=== PATIENT | female | born 1950 | race Caucasian/White ===

== ENCOUNTER 2018-12-03 13:51 | Outpatient (CLI) | payer MEDICARE, BC, SELFPAY ==
--- NOTE | 2018-12-03 14:41 | DI.RAD_ITS ---
SYMPTOMS/DIAGNOSIS: BILATERAL KNEE PAIN, ? DJD LEFT KNEE: The bony structures and joint spaces are intact. There is no evidence of a joint effusion, fracture or dislocation. SUMMARY: No abnormality is demonstrated. RIGHT KNEE: No bony or joint abnormality is seen. There is no evidence of a joint effusion, fracture or dislocation.
== END 2018-12-03 14:11 ==
PROVIDERS: PCP Family Medicine; Referring Provider Family Medicine; Visit Provider Orthopaedic Surgery
DX: M25.561 Pain in right knee (principal); M25.562 Pain in left knee
CPT/HCPCS: 73562; 99211; 99213

== ENCOUNTER 2019-02-03 00:56 | Outpatient (CLI) | payer MEDICARE, BC, SELFPAY ==
--- NOTE | 2019-02-03 11:30 | DI.MAMMO_ITS ---
SYMPTOMS/DIAGNOSIS: SCREENING, Z12.31 MAMMOGRAMS: Mammograms were interpreted according to the usual protocol including computer analysis with CAD system, tomosynthesis and C view imaging. The breast tissue is of moderate radiodensity. There is no dominant mass. There are no suspicious calcifications and there has been no significant interval change when compared with prior images. No evidence of malignancy, category 1, yearly screening mammography is recommended. Breast density category B. SUMMARY: Category 1, yearly screening mammography is recommended. Breast density category B. MQSA ASSESSMENT OF FINDINGS: Negative. Category 1. Patient will receive a letter notifying them of these results. BI-RADS category B. There are scattered areas of fibroglandular density.
== END 2019-02-03 01:16 ==
PROVIDERS: PCP Family Medicine; Visit Provider Nurse Practitioner Family
DX: Z12.31 Encounter for screening mammogram for malignant neoplasm of breast (principal)
CPT/HCPCS: 77063; 77067

== ENCOUNTER 2019-07-01 00:55 | Outpatient (CLI) | payer MEDICARE, BC, SELFPAY ==
--- NOTE | 2019-07-01 14:30 | DI.DEXA_ITS ---
EXAM: XR DEXA BONE DENSITY W/WO FRANCOISE CLINICAL HISTORY: OSTEOPENIA M85.80, MENOPAUSAL Z78.0 TECHNIQUE: DEXA scan was performed according to the usual protocol. COMPARISON: PREVIOUS EXAMINATION OF JUNE 2015 FINDINGS: Findings for lumbar spine scanning are a T-score of -2.3, previous examination of June 2015 showed lumbar T-score of -2.0. Left hip scanning shows T-score of -2.3 with left femoral neck T-score of - 2.5, previous examination of 2014 showed left hip T-score of -1.6. Left forearm scanning shows T-score of -3.5, previous examination of 2014 showed forearm T-score of - 2.6. Lateral vertebral scanogram shows no evidence of a vertebral compression fracture. IMPRESSION: Findings consistent with osteoporosis according to the WHO criteria.
== END 2019-07-01 01:15 ==
PROVIDERS: PCP Family Medicine; Visit Provider Family Medicine
DX: M81.0 Age-related osteoporosis without current pathological fracture (principal); M85.88 Other specified disorders of bone density and structure, other site; Z78.0 Asymptomatic menopausal state
CPT/HCPCS: 77080

== ENCOUNTER 2019-07-14 22:00 | Outpatient (REF) | payer MEDICARE, BC, SELFPAY ==
[2019-07-14 19:58] LABS: ALT 25 U/L (14-59); AST 18 U/L (15-37); Albumin 3.7 g/dL (3.4-5.0); Alkaline Phosphatase 93 U/L (46-116); Anion Gap 8.4 mmol/L (3-11); BUN 17 mg/dL (7-18); Bilirubin, Total 0.2 mg/dL (0.2-1.0); CO2 28.6 mmol/L (21.0-32.0); CREATININE 1.01 mg/dL (0.55-1.02); Calcium 9.2 mg/dL (8.5-10.1); Chloride 105 mmol/L (98-107); Estimated GFR 54.35 (mL/min/1.73m2); Glucose 94 mg/dL (70-100); PHOSPHORUS 4.3 mg/dL (2.6-4.7); Potassium 4.1 mmol/L (3.5-5.1); Sodium 142 mmol/L (136-145); TSH (W/Ref FT4) 1.55 uIU/mL (0.36-3.74); Total Protein 6.7 g/dL (6.4-8.2)
[2019-07-15 05:22] LABS: Vitamin D 25 Total 57.9 ng/ml (30-100)
== END 2019-07-14 22:20 ==
LOC: NCHCN 22:00
PROVIDERS: PCP Family Medicine; Visit Provider Family Medicine
DX: E78.5 Hyperlipidemia, unspecified (principal); M81.0 Age-related osteoporosis without current pathological fracture
CPT/HCPCS: 80053; 82306; 84100; 84443

== ENCOUNTER 2019-10-26 10:17 | Emergency (ER) | payer MEDICARE, BC, SELFPAY ==
[2019-10-26 10:22] VITALS: BP 139/75; PULSE 73; RESP 18; TEMP 36.8; O2SAT 96
--- NOTE | 2019-10-26 10:30 | DI.CT_ITS ---
EXAM: CT HEAD WO CLINICAL HISTORY: fall/injury/VELÁZQUEZ COMPARISON: HEAD FACIALS WO from 03/12/2014 FINDINGS: There is a small amount of subarachnoid blood in the left frontal lobe. There is no midline shift or mass effect. The ventricles and sulci are consistent with the patient's age. The calvarium is inta ct. There is near complete opacification of the maxillary sinuses bilaterally. The remaining visual ized paranasal sinuses are clear as are the mastoid air cells. IMPRESSION: 1. Small amount of subarachnoid hemorrhage in the left frontal lobe. 2. No acute fracture. 3. The findings were discussed with the emergency department on the date of the examination.
--- NOTE | 2019-10-26 10:38 | W.ED.GENAD ---
Discharge Plan Disposition Patient Disposition: [facility] Condition: Serious Discharge Details Chief Complaint: HeadInjury Clinical Impression: Subarachnoid hemorrhage, Laceration of scalp Primary Care Provider: Addie Franks ED Provider: Chivo Moreno Home Meds and New Rx's Prescriptions: No Action rosuvastatin 20 mg tablet 20 mg PO DAILY RF: 0 aspirin [Adult Aspirin Regimen] 81 mg tablet,delayed release (DR/EC) 81 mg PO DAILY RF: 0 sumatriptan succinate [Imitrex] 100 MG tablet 100 mg PO PRN RF: 0 sertraline 50 MG tablet 50 mg PO DAILY RF: 0 cholecalciferol (vitamin D3) 1,000 UNITS tablet 2,000 units PO DAILY RF: 0 Proactive Cream 1 ea Topical BID RF: 0 Medical Decision Making 69-year-old female who presents after a mechanical slip and fall striking the back of her head. Able to confirm that her tetanus status is up-to-date. Patient appears well, nontoxic. She is neurologically intact. She is not anticoagulated. Given her age, presentation, will obtain CT of the head without contrast. We will need to repair the laceration. No palpable skull fracture. No C-spine tenderness whatsoever, collar not initially placed. Patient remains neurologically intact here in the ER. CT results showing a subarachnoid hemorrhage. Findings were discussed with patient. She was placed into a c-collar, hard, IV established, labs obtained, and a call was placed to [facility] trauma team for transfer as we do not have neurosurgery here at our facility. I spoke with the trauma team, Dr. Barrios who felt as though transfer to her facility, ER to ER was reasonable. She recommended that we initiate 1 g IV Keppra. All appropriate paperwork signed for transfer Medical Records Medical records reviewed: Yes I reviewed the patient's medical records. Imaging Data Radiologic Study: Imaging: CT Scan My impression: Head without contrast read by radiology as a left frontal subarachnoid hemorrhage without mass-effect HPI General Mode of arrival: ambulatory. Date/Time Provider Initiated Documentation: 10/26/19 10:18. Limitations to Documentation: no limitations. Information obtained by: patient and family. HPI Narrative: 69-year-old female presents to the ER via private car after having a slip and fall on ice injury. Roughly 15 minutes ago she fell backward striking the back of her head she does report a mild global headache but denies any other injury or LOC. She denies any visual changes, neck pain, nausea, vomiting, numbness, tingling, weakness, incontinence. She believes that she is up-to-date on her tetanus status. Her only complaint right now is that of a laceration to her scalp. Patient does take a baby aspirin daily but is otherwise not anticoagulated. She has a history of migraine headaches, hearing loss, former smoker, tubular adenoma of the colon, benign neoplasm of the breast. Related Data Home Medications Medication Instructions Recorded Confirmed cholecalciferol (vitamin D3) 2,000 units PO DAILY 03/12/14 10/26/19 sertraline 50 mg PO DAILY 03/12/14 10/26/19 sumatriptan succinate [Imitrex] 100 mg PO PRN 03/12/14 10/26/19 Proactive Cream 1 ea TOPICAL BID 07/03/17 10/26/19 aspirin 81 mg tablet,delayed 81 mg PO DAILY 01/25/19 10/26/19 release rosuvastatin 20 mg tablet 20 mg PO DAILY 01/25/19 10/26/19 Allergies Allergy/AdvReac Type Severity Reaction Status Date / Time isotretinoin [From Accutane] Allergy Intermediate Hives Verified 10/26/19 10:27 latex Allergy Intermediate Skin Rash Verified 10/26/19 10:27 Tetracyclines Allergy Intermediate Hives Verified 10/26/19 10:27 minocycline Allergy Verified 10/26/19 10:27 General Stated Complaint: HeadInjury SADA: 3 Review of Systems Constitutional Constitutional: Denies chills, Denies fatigue, Denies fever(s), Reports headache(s) and Denies weakness Eyes Eyes: Denies blurry vision, Denies change in vision and Denies loss of vision ENT Ears, Nose, Mouth, and Throat: Reports dizziness, Reports headache(s), Denies nasal congestion and Denies sore throat Cardiovascular Cardiovascular: Denies chest pain, Denies rapid heart rate, Denies edema, Denies irregular heart rhythm, Denies lightheadedness, Denies palpitations and Denies dyspnea Respiratory Respiratory: Denies cough, Denies dyspnea and Denies wheezing Gastrointestinal Gastrointestinal: Denies abdominal pain, Denies nausea and Denies vomiting Musculoskeletal Musculoskeletal: Denies abnormal gait, Denies back pain, Denies myalgias, Denies numbness and Denies tingling Integumentary/Breasts Skin/Breast: Denies rash Neurologic Neurologic: Denies abnormal gait, Reports dizziness, Reports headache(s), Denies loss of vision, Denies numbness, Denies tingling, Denies paresthesias and Denies weakness Endocrine Endocrine: Denies fatigue and Denies palpitations Hematologic/Lymphatic Hematologic/Lymphatic: Denies easy bleeding and Denies easy bruising Allergic/Immunologic Allergic/Immunologic: Denies wheezing PFSH Medical History 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 Chivo Nuñez, repeat 5 yrs Trigger Finger release 09/2013 Family History Mother Personal history of malignant neoplasm BREAST Father Essential hypertension Personal history of malignant neoplasm LUNG/MELANOMA Heart disease Hyperlipidemia Sister No problems noted. Grandfather Personal history of malignant neoplasm STOMACH Grandfather Personal history of malignant neoplasm Grandmother No problems noted. Grandmother Personal history of malignant neoplasm Social History Smoking/Tobacco Use Status: Current every day Tobacco Type: cigarettes Alcohol Intake: never Drug use: Never Substance use type: does not use Do you feel safe at home: Yes Do you feel safe in your relationship?: Yes Female Reproductive History Menstrual Menopause type: natural History History 2 Para 2 Hx # Term Pregnancies Multiple births Hx # Pregnancies Ectopic pregnancies AB induced Hx Number of Living Children AB spontaneous Exam Const General: cooperative, healthy appearing, comfortable and no acute distress Orientation: alert, awake and oriented x3 HENMT Head: normal to inspection, no palpable skull fracture, normocephalic and laceration (Right occiput with a 1.5 cm well approximated lac. No crepitus or bleeding) Ears: external ears normal, TM's normal bilaterally, EAC's normal and other (No hemotympanum bilaterally) General nose exam: external nose normal Mouth: moist mucous membranes Eyes General: appearance normal, both eyes and all related structures Eyelids: eyelids normal Conjunctivae: conjunctivae normal Sclera: sclerae normal Cornea: corneas normal Pupils: PERRL EOM: EOM intact bilaterally Direct ophthalmoscopy: normal light reflex Neck Neck: normal visual inspection, full ROM, no lymphadenopathy, no meningeal signs, trachea midline and supple Resp Effort & Inspection: normal respiratory effort and able to speak in complete sentences Auscultation: clear to auscultation bilaterally Cardio Rate: regular rate Rhythm: regular rhythm GI Inspection: normal to inspection Palpation: soft and nontender Back/Spine/Pelvis Back: No back tenderness Cervical Spine: cervical ROM normal, No collar present, No cervical muscular tenderness, No pain with cervical ROM, No cervical spasm, No cervical spinal tenderness and No step off deformity Thoracic/Lumbar Spine: thoracic and lumbar spine normal to inspection Pelvis: no pain with anterior-posterior compression Skin General skin exam: no rashes or lesions noted Neuro General: alert, awake, oriented x3, gait normal, moves all extremities and no focal motor deficits Cranial Nerves: CN's II-XI intact bilaterally Cognition: normal cognition Speech: speech normal Gait: normal gait Motor: muscle tone normal throughout, strength 5/5 throughout, no pronator drift, no movement abnormalities noted and no fasciculations Sensory Exam: no sensory deficits noted Extrem General: normal to inspection, full ROM, normal capillary refill, no pedal edema and normal gait Psych Appearance: grossly normal Mental Status: mental status grossly normal Speech and Movement: speech and movement normal Affect: normal affect Attitude: cooperative Course Vital Signs Vital signs: Vital Signs Temperature 36.8 C 10/26/19 10:22 Pulse 73 10/26/19 10:22 Respiratory Rate 18 10/26/19 10:22 Blood Pressure 139/75 10/26/19 10:22 Pulse Oximetry 96 10/26/19 10:22 Temperature 36.8 C 10/26/19 10:22 Temperature Source Skin 10/26/19 10:22 Pulse 73 10/26/19 10:22 Respiratory Rate 18 10/26/19 10:22 Respiratory Effort Non-Labored 10/26/19 10:26 Blood Pressure 139/75 10/26/19 10:22 Blood Pressure Position Sitting 10/26/19 10:22 Pulse Oximetry 96 10/26/19 10:22 Oxygen Delivery Method Room Air 10/26/19 10:22 Oxygen Flow Rate 0 10/26/19 10:22 Pain Level 3 10/26/19 10:22 Procedures Laceration Laceration 1: Site: scalp (Right occiput) Side (If applicable): right Size (cm): 1.5 Description: linear Depth: simple, single layer Pre-repair: wound explored and irrigated extensively Size (cm): other ([place]) Number of sutures: 2
[2019-10-26 12:09] LABS: Abs Immature Grans 0.02 k/cumm (0.0-0.09); Absolute Basophil Count 0.04 k/cumm (0.0-0.2); Absolute Eosinophil Count 0.08 k/cumm (0.0-0.7); Absolute Lymphocyte Count 1.63 k/cumm (1.2-3.4); Absolute Monocyte Count 0.56 k/cumm (0.11-0.7); Absolute Neutrophil Count 3.82 k/cumm (1.2-6.7); Basophils % 0.7; Eosinophils % 1.3; Immature Grans % 0.3 %; Lymphocytes % 26.5; Mean Corp. HGB Concentration 34.1 g/dL (32.0-36.0); Mean Corpuscular Hemoglobin 30.6 pg (27.0-33.0); Mean Corpuscular Volume 89.8 fL (80-95); Mean Platelet Volume 8.1 fL (8.0-11.0); Monocytes % 9.1; Neutrophils % 62.1; Platelet Count 272 x1000/uL (130-400); RBC Distribution Width 12.5 % (11.7-14.6); White Blood Cell Count 6.15 k/cumm (4.4-10.8)
[2019-10-26 12:18] LABS: Prothrombin Time 10.4 sec (9.3-11.0)
[2019-10-26] MEDS: levETIRAcetam 1,000 MG in Normal Saline 100 ML 400 MG IVPB (12:19)
[2019-10-26 12:26] LABS: ALT 23 U/L (14-59); AST 20 U/L (15-37); Albumin 3.6 g/dL (3.4-5.0); Alkaline Phosphatase 96 U/L (46-116); Anion Gap 8.4 mmol/L (3-11); BUN 17 mg/dL (7-18); Bilirubin, Total 0.3 mg/dL (0.2-1.0); CO2 27.6 mmol/L (21.0-32.0); CREATININE 0.73 mg/dL (0.55-1.02); Chloride 104 mmol/L (98-107); Glucose 91 mg/dL (74-106); Potassium 4.3 mmol/L (3.5-5.1); Sodium 140 mmol/L (136-145); Total Protein 7.1 g/dL (6.4-8.2)
[2019-10-26 12:53] VITALS: BP 139/75; PULSE 73; RESP 18; TEMP 36.8; O2SAT 96
== END 2019-10-26 12:55 | disposition short-term general hospital (02) ==
PROVIDERS: Emergency Provider Physician Assistant; PCP Family Medicine
DX: S06.6X0A Traumatic subarachnoid hemorrhage without loss of consciousness, initial encounter (principal); S01.01XA Laceration without foreign body of scalp, initial encounter; W00.0XXA Fall on same level due to ice and snow, initial encounter
CPT/HCPCS: 12011; 80053; 96374; 99285; 70450; 85025; 85610; J1953; L0172

== ENCOUNTER 2020-02-28 00:45 | Outpatient (CLI) | payer MEDICARE, BC, SELFPAY ==
--- NOTE | 2020-02-28 11:30 | DI.MAMMO_ITS ---
EXAM: MG MAMMO SCREENING CLINICAL HISTORY: screening TECHNIQUE: Bilateral full field digital CC and MLO mammographic images were obtained with 3D tomosyn thesis and utilizing computer aided detection (CAD). COMPARISON: Available for comparison. FINDINGS: Masses/Architectural Distortion: None seen. Microcalcifications: No suspicious pleomorphic-type are seen. There is again seen a biopsy clip in th e upper-outer quadrant of the right breast. Skin Thickening/Nipple Retraction: None. IMPRESSION: 1. No significant interval change with no specific features of malignancy noted. 2. Unless there is more urgent need, screening mammography is recommended, as per [employer] guidelines. BI-RADS Category 1 - Negative Breast Density - Category B - Scattered areas of fibroglandular density A negative radiographic report should not delay biopsy if a dominant or clinically suspicious mass is present. Up to ten percent of cancers are not identified on mammography. A negative report may reinforce clinical impression. Adenosis and dense breasts may obscure an underlying neoplasm. False positive reports average 6 to 10%. Patient will receive a letter notifying them of these results.
== END 2020-02-28 01:05 ==
PROVIDERS: PCP Family Medicine; Visit Provider Nurse Practitioner Family
DX: Z12.31 Encounter for screening mammogram for malignant neoplasm of breast (principal)
CPT/HCPCS: 77063; 77067

== ENCOUNTER 2020-04-04 12:12 | Outpatient (REF) | payer MEDICARE, BC, SELFPAY ==
[2020-04-04 18:31] LABS: PTT Activated 27.2 sec (21.0-31.4); Prothrombin Time 10.1 sec (9.3-11.0)
[2020-04-04 18:34] LABS: HCT 44.2 % (36.0-46.0); HGB 14.9 g/dL (11.2-15.7); MCH 30.2 pg (27.0-33.0); MCHC 33.7 % (32.0-36.0); MCV 89.7 fL (80-95); MPV 8.7 fL (8.0-11.0); Platelet Count 234 10^3/uL (130-400); RBC 4.93 10^6/uL (3.93-5.22); RDW 12.3 % (11.7-14.6); RDW-SD 40.4 fL; WBC 5.94 10^3/uL (4.4-10.8)
[2020-04-04 18:50] LABS: ALT 30 U/L (14-59); AST 26 U/L (15-37); Albumin 3.7 g/dL (3.4-5.0); Alkaline Phosphatase 97 U/L (46-116); Anion Gap 8.2 mmol/L (3-11); BUN 21 mg/dL (7-18); Bilirubin, Total 0.3 mg/dL (0.2-1.0); CO2 26.8 mmol/L (21.0-32.0); CREATININE 0.79 mg/dL (0.55-1.02); Calcium 9.1 mg/dL (8.5-10.1); Chloride 103 mmol/L (98-107); Glucose 82 mg/dL (74-106); Potassium 4.4 mmol/L (3.5-5.1); Sodium 138 mmol/L (136-145); Total Protein 6.7 g/dL (6.4-8.2)
== END 2020-04-04 12:32 ==
LOC: NCHCN 12:12
PROVIDERS: PCP Family Medicine; Visit Provider Nurse Practitioner Family
DX: K92.1 Melena (principal)
CPT/HCPCS: 80053; 85027; 85610; 85730

== ENCOUNTER 2020-04-06 10:03 | Outpatient (CLI) | payer MEDICARE, BC, SELFPAY ==
--- NOTE | 2020-04-06 | DI.RAD_ITS ---
EXAM: XR CHEST 2V PA LATERAL CLINICAL HISTORY: ENLARGED LYMPH NODES, R59.9 TECHNIQUE: 2D digital imaging was performed. COMPARISON: No exams were available for comparison FINDINGS: MEDIASTINUM: Normal. HEART: Normal. PULMONARY VASCULATURE: Normal. LUNGS: Clear. PLEURAL SPACE: No pleural effusion or pneumothorax. BONE:Normal. IMPRESSION: No acute pulmonary findings. DATA REPOSITORY: RADIATION DOSE DELIVERED:
== END 2020-04-06 10:23 ==
PROVIDERS: PCP Family Medicine; Visit Provider Family Medicine
DX: R59.9 Enlarged lymph nodes, unspecified (principal)
CPT/HCPCS: 71046

== ENCOUNTER 2020-04-06 14:08 | Outpatient (REF) | payer MEDICARE, BC, SELFPAY ==
[2020-04-06 18:35] LABS: Abs Immature Grans 0.01 10^3/uL (0.0-0.06); Absolute Basophil Count 0.04 10^3/uL (0.0-0.2); Absolute Eosinophil Count 0.03 10^3/uL (0.0-0.7); Absolute Lymphocyte Count 2.13 10^3/uL (1.2-3.4); Absolute Monocyte Count 0.47 10^3/uL (0.1-0.8); Absolute Neutrophil Count 2.81 10^3/uL (1.2-6.7); Basophils % 0.7; Eosinophils % 0.5; HCT 45.5 % (36.0-46.0); Immature Grans % 0.2; Lymphocytes % 38.8; MCH 29.8 pg (27.0-33.0); MCV 90.5 fL (80-95); MPV 8.7 fL (8.0-11.0); Monocytes % 8.6; Neutrophils % 51.2; Platelet Count 239 10^3/uL (130-400); RBC 5.03 10^6/uL (3.93-5.22); RDW 12.1 % (11.7-14.6); RDW-SD 40.3 fL; WBC 5.49 10^3/uL (4.4-10.8)
[2020-04-06 18:54] LABS: Calculated LDL 53 mg/dL (<100); Cholesterol 131 mg/dL (<200); HDL Cholesterol 68 mg/dL (40-60); Triglyceride 50 mg/dL (<150)
[2020-04-06 19:15] LABS: Vitamin D 25 Total 56.6 ng/ml (30-100)
== END 2020-04-06 14:28 ==
LOC: NCHCN 14:08
PROVIDERS: PCP Family Medicine; Visit Provider Family Medicine
DX: E78.5 Hyperlipidemia, unspecified (principal); R59.9 Enlarged lymph nodes, unspecified; K92.1 Melena; M85.80 Other specified disorders of bone density and structure, unspecified site
CPT/HCPCS: 80061; 82306; 85025

== ENCOUNTER 2020-06-23 04:47 | Outpatient (CLI) | payer MEDICARE, BC, SELFPAY ==
--- NOTE | 2020-06-23 15:05 | DI.CTLCSR_ITS ---
EXAM: CT CHEST LUNG CANCER SCREEN CLINICAL HISTORY: SCREENING FOR LUNG CA,F17.210,SMOKER TECHNIQUE: Imaging Protocol: Axial computed tomography images with coronal and sagittal reformatted images were created and reviewed COMPARISON: CT CHEST WITH CONTRAST from 06/26/2015 FINDINGS: Tracheobronchial tree: Patent where visualized. Mediastinum and Malika: No dominant adenopathy or fluid collection. Pulmonary parenchyma: Mild centrilobular emphysematous changes are present. Scarring or atelectasis is seen in the lung bases. No focal consolidating infiltrates. Lung Nodules: None. Pleura: No effusion or pneumothorax. Heart: The heart is not dilated. Moderate coronary artery calcification. No significant pericardial effusion. Aorta: Thoracic aorta non-dilated.Atherosclerosis. Upper abdomen: Unremarkable. Bones: Degenerative changes are seen in the spine. Soft Tissues: Unremarkable. IMPRESSION: No pulmonary nodules. Lung RADS Cat 1 - Negative: No nodules and definitely benign nodules Lung-RADS 1.0 CATEGORIES: Category 0 - Prior chest CT exam(s) being located for comparison. Category 1 - Annual screening in 12 months. No nodules or definitely benign nodules. Category 2 - Annual screening in 12 months. Benign appearance. Nodules with low likelihood of becomin g active cancer. Category 3 - 6-month follow-up. Probably benign. Short-term follow-up suggested. Nodules with low lik elihood of becoming active cancer. Category 4A - 3-month follow-up and CT/PET if >8 mm in size. Suspicious finding. Findings which requi re additional testing. Category 4B - Findings which require additional testing and tissue sampling. Suspicious finding. C Added to Any of the Above - History of prior lung cancer screening. S Added to Any of the Above - Significant unexpected other finding. RADIATION DOSE DELIVERED: 86.34mGy.cm Total DLP DATA REPOSITORY: All CT scans at this facility are submitted to the National Radiology Data Registry (NRDR) Dose Index Registry (DIR) with the [employer] (ACR). RADIATION OPTIMIZATION: All CT scans at this facility use at least one of these dose optimization te chniques: automated exposure control; mA and/or kV adjustment per patient size (includes targeted exa ms where dose is matched to clinical indication); or iterative reconstruction.
== END 2020-06-23 05:07 ==
PROVIDERS: PCP Family Medicine; Visit Provider Family Medicine
DX: F17.210 Nicotine dependence, cigarettes, uncomplicated (principal)
CPT/HCPCS: G0297

== ENCOUNTER 2020-07-13 00:46 | Outpatient (CLI) | payer MEDICARE, BC, SELFPAY ==
--- NOTE | 2020-07-13 | DI.RAD_ITS ---
EXAM: XR SHOULDER RT COMPLETE 2+V CLINICAL HISTORY: RT SHOULDER JOINT PAIN,M25.511. TECHNIQUE: 2D digital imaging was performed. COMPARISON: No exams were available for comparison FINDINGS: BONES: No acute fracture is present. No bony destructive lesion is seen. JOINTS: No dislocation present. Mild degenerative changes of the AC joint. SOFT TISSUE: Normal. IMPRESSION: Mild degenerative changes of the right AC joint. No acute fracture or dislocation. DATA REPOSITORY: RADIATION DOSE DELIVERED:
== END 2020-07-13 01:06 ==
PROVIDERS: PCP Family Medicine; Visit Provider Family Medicine
DX: M19.011 Primary osteoarthritis, right shoulder (principal)
CPT/HCPCS: 73030

== ENCOUNTER → 2020-08-09 10:26 | Outpatient (BNVA) | payer MEDICARE, BC, SELFPAY | PROVIDERS: PCP Family Medicine; Referring Provider Family Medicine; Visit Provider Student in an Organized Health Care Education/Training Program | DX: M75.51 Bursitis of right shoulder (principal); M75.41 Impingement syndrome of right shoulder; M75.21 Bicipital tendinitis, right shoulder | CPT/HCPCS: 20610; 99214; J1030 ==

== ENCOUNTER 2021-06-25 01:46 | Outpatient (CLI) | payer MEDICARE, BC, SELFPAY ==
--- NOTE | 2021-06-25 | DI.CTLCSR_ITS ---
Exam(s) CT CHEST LUNG CANCER SCREEN EXAM: CT CHEST LUNG CANCER SCREEN CLINICAL HISTORY: SCREENING FOR LUNG CA, CURRENT SMOKER, F17.210. TECHNIQUE: Imaging Protocol: Low Dose Technique CONTRAST MATERIAL: None COMPARISON: CT CT CHEST LUNG CANCER SCREEN from 06/23/2020 FINDINGS: CHEST: LUNGS: There is some pleural based infiltrate in the posterior basal segment and lateral basal segmen ts of the right lower lobe. This has slightly increased from the prior study of 1 year ago. In the opposite-left lung there is some atelectasis or scarring in the posterior basal segment which was not evident previously. Previously present left lung lingular findings have decreased. There are no pl eural effusions. There is density in the distal trachea proximal mainstem bronchi which is most probably mucus. MEDIASTINUM: There is no obvious hilar nor mediastinal adenopathy. CARDIAC: Heart size is normal. There is no pericardial effusion.Coronary artery calcification noted- moderate. OTHER: Caliber thoracic aorta is upper normal. OSSEOUS: No significant osseous lesions.. IMPRESSION: 1. Slight increase in the right lower lobe pleural based infiltrate when compared to June 2020. N evertheless, this still has a somewhat benign appearance... No pleural effusions no obvious intratho racic adenopathy 2. Recommend repeat scan in 6 months 3. Lung RADS Cat 3 - Probably Benign: Probably benign finding(s) - short term follow-up suggested; in clude nodules with a low likelihood of becoming a clinically active cancer. Lung-RADS 1.0 CATEGORIES: Category 0 - Prior chest CT exam(s) being located for comparison. Category 1 - Annual screening in 12 months. No nodules or definitely benign nodules. Category 2 - Annual screening in 12 months. Benign appearance. Nodules with low likelihood of becomin g active cancer. Category 3 - 6-month follow-up. Probably benign. Short-term follow-up suggested. Nodules with low lik elihood of becoming active cancer. Category 4A - 3-month follow-up and CT/PET if >8 mm in size. Suspicious finding. Findings which requi re additional testing. Category 4B - Findings which require additional testing and tissue sampling. Modifier S- Potentially clinically significant findings (non lung cancer) RADIATION DOSE DELIVERED: 79.22mGy.cm Total DLP 1.84mGy CTDIvol DATA REPOSITORY: All CT scans at this facility are submitted to the National Radiology Data Registry (NRDR) Dose Index Registry (DIR) with the [employer] (ACR). RADIATION OPTIMIZATION: All CT scans at this facility use at least one of these dose optimization te chniques: automated exposure control; mA and/or kV adjustment per patient size (includes targeted exa ms where dose is matched to clinical indication); or iterative reconstruction.
== END 2021-06-25 02:06 ==
PROVIDERS: PCP Family Medicine; Visit Provider Family Medicine
DX: F17.210 Nicotine dependence, cigarettes, uncomplicated (principal); Z12.2 Encounter for screening for malignant neoplasm of respiratory organs; R91.8 Other nonspecific abnormal finding of lung field
CPT/HCPCS: 71271

== ENCOUNTER 2021-07-11 00:40 | Outpatient (CLI) | payer MEDICARE, SELFPAY ==
--- NOTE | 2021-07-11 16:30 | DI.DEXA_ITS ---
Exam(s) XR DEXA BONE DENSITY W/WO FRANCOISE EXAM: XR DEXA BONE DENSITY W/WO FRANCOISE CLINICAL HISTORY: AGE RELATED OSTEOPOROSIS M81.0 TECHNIQUE: Routine DEXA evaluation of the lumbar spine, hip, or forearm. COMPARISON: CR XR DEXA BONE DENSITY W/WO FRANCOISE from 07/01/2019 FINDINGS: Performed on a HolotenKsolar unit. Lateral image: No compression fracture evident. Lumbar Spine total T-score: -2.5. Prior 2019 reading was -2.3 Hip total T-score:-2.5. Prior 2019 reading was -2.3 Independent reading at the level of the femoral neck yields at T-score of -2.6. Forearm total T-score: -3.6 IMPRESSION: Bone mineral density measures in the osteoporosis range. Fracture risk is high. Note: Any spine fracture indicates 5x risk for subsequent spine fracture and 2x risk for subsequent h ip fracture. World Health Organization criteria for BMD interpretation classify patients: Normal...... T- Score at or above -1.0 Osteopenic... T- Score between -1.0 and -2.5 Osteoporosis... T-Score at or below -2.5
== END 2021-07-11 01:00 ==
PROVIDERS: PCP Family Medicine; Visit Provider Nurse Practitioner Family
DX: Z13.820 Encounter for screening for osteoporosis (principal); M81.0 Age-related osteoporosis without current pathological fracture
CPT/HCPCS: 77080

== ENCOUNTER → 2021-08-23 12:45 | Outpatient (BNVA) | payer MEDICARE, SELFPAY | PROVIDERS: PCP Family Medicine; Referring Provider Nurse Practitioner Family; Visit Provider Surgery | DX: Z12.11 Encounter for screening for malignant neoplasm of colon (principal); Z86.010 Personal history of colon polyps; F17.210 Nicotine dependence, cigarettes, uncomplicated ==

== ENCOUNTER 2021-08-27 01:59 | Outpatient (CLI) | payer MEDICARE, SELFPAY ==
[2021-08-27 10:27] LABS: Source Nasal/Nares
[2021-08-27 18:38] LABS: COVID-19 PCR Negative (Negative)
== END 2021-08-27 02:00 | disposition home or self-care (01) ==
LOC: LBO 01:59
PROVIDERS: Surgery; PCP Family Medicine; Visit Provider Surgery
DX: Z20.822 Contact with and (suspected) exposure to COVID-19 (principal); Z01.818 Encounter for other preprocedural examination
CPT/HCPCS: 87635

== ENCOUNTER 2021-08-29 11:39 | Day surgery (SDC) | payer MEDICARE, BC, SELFPAY ==
--- NOTE | 2021-08-29 06:55 | W.COLOREPORT ---
Colonoscopy Report Date of procedure: 08/29/21 Pre-op diagnosis general: Hx of colon polyps Post-op diagnosis procedure note: same (multiple polyps and mild diverticulosis) Procedure: Colonoscopy with polypectomy Surgeon: Misty Sung Anesthesia Type: General:No Airway (Sujit Murillo, SADE) Estimated blood loss (mL): 3 Pathology: other (Cecal polyps, ascending, transverse, splenic flexure and sigmoid polyps x9) Complications: None Disposition: same day Indications: Pt seen at the request of PCP regarding colon cancer screening. Pt has never had had a colon cancer screening before. Denies problems with constipation, diarrhea. No pain or difficulty with bowel movements. Denies rectal bleeding. There is no family history of any colon cancer. Pt has not had any weight loss. Their appetite is good. No heart, lung, or kidney problems. No heartburn or indigestion. No prior colo-rectal surgery. Prep: Miralax/Dulcolax Procedure Start Time: 13:50 Procedure End Time: 14:31 Retraction Time: 27 minutes Findings: multiple small polyps mild sigmoid diverticulosis Procedure Description: After informed consent was obtained the patient was taken to the procedure room and placed in a left decubitous position. Monitors were applied and a time out was done. The patients name, date of , procedure, allergies to medications and metal in their body was reviewed. The patient was then sedated. Once sedated and comfortable a rectal exam was done. External exam was normal. Internal exam revealed a normal sphincter tone and no palpable masses. The scope was then introduced and retro-flexed. No internal hemorrhoids, polyps or masses were identified on retro-flexion. The scope was then advanced to the cecum without difficulty. The ileocecal vlave and appendiceal orifice were identified. The prep was good. The scope was then slowly retracted over 27 minutes back into the rectum. Polyps were removed with cold forceps in the cecum x2, ascending polyp, transverse polyp, splenic flexure and sigmoid colon x9. There was mild sigmoid diverticulosis noted. The scope was removed and the patient was woken up and taken back to Same day surgery in stable condition. The patient tolerated the procedure well and there were no immediate complications. Follow up: The patient should follow up in 5 years unless they develop changes in bowel habits or other new gastrointestinal complaints.
--- NOTE | 2021-08-29 06:56 | W.PM.DSUDISC ---
Discharge Plan Disposition Patient Disposition: HOME Condition: Good Discharge Details Reason For Visit: Colonoscopy Attending Provider: Misty Sung Primary Care Provider: Addie Franks Home Meds and New Rx's Prescriptions: Continued rosuvastatin 20 mg tablet 20 mg PO DAILY RF: 0 riboflavin (vitamin B2) 400 mg tablet 400 mg PO DAILY RF: 0 sumatriptan succinate [Imitrex] 100 MG tablet 100 mg PO PRN RF: 0 sertraline 50 MG tablet 50 mg PO DAILY RF: 0 cholecalciferol (vitamin D3) 1,000 UNITS tablet 2,000 units PO DAILY RF: 0 Proactive Cream 1 ea Topical BID RF: 0 Discontinued bisacodyl [Dulcolax (bisacodyl)] 5 mg tablet,delayed release (DR/EC) 5 mg PO ONCE Qty: 4 RF: 0 polyethylene glycol 3350 17 gram/dose powder 17 g PO ONCE Qty: 238 RF: 0 Discharge Instructions Instructions: Colorectal Polyps (DC), Diverticulosis (DC) Additional Instructions: Findings: mild diverticulosis multiple polyps Follow up: 5 years Please call if you develop: fevers >101.5 Nausea or Vomiting Abdominal pain that is not transient Rectal bleeding that is more then a tbsp A hard abdomen and inability to pass gas DAY SURGERY UNIT POST ENDOSCOPY INSTRUCTIONS Instructions for everyone who is given Anesthesia: For your safety, please do the following for the next 24 Hours: a. Do not drive or operate dangerous equipment b. Do not drink alcohol beverages or use any recreational drugs for the first 24 hours or while taking pain medications. The medications in your body may have a reaction that can be dangerous. c. Do not make any important decisions or sign any important papers 1. Generally there are no restrictions on your activity after a day or so has gone by, but you may feel a bit fatigued for a few days. 2. After you arrive home you may have a light meal and return to a normal diet as you can tolerate it without feeling sick to your stomach. 3. After surgery, you may feel pain or discomfort. This should be only transient, but if it persists please contact your doctor. 4. If there are any questions regarding the findings of your procedure, please feel free to contact your doctor. 6. If you are unable to contact your doctor with a problem, contact the hospital at [phone]. 7. Continue all your regular medications unless directed otherwise. I understand the above instructions and have no questions. Signature of Patient or Responsible Adult Escort Date/Time Name of Responsible Adult Escort Signature of Nurse Date/Time Activity:: Activity as Tolerated Diet:: high fiber diet Discharge Orders Discharge Orders: Discharge Order (Routine); Ordered 08/29/21 Ordered By: Misty Sung
[2021-08-29 11:55] VITALS: BP 104/96; PULSE 96; RESP 18; TEMP 36.2; O2SAT 98
[2021-08-29] MEDS: Lactated Ringers 1,000 ML 80 ML IV (12:36)
--- NOTE | 2021-08-29 12:43 | W.ANESPRE ---
General Info Date of Service Date Performed: 08/29/21 Height: 5 ft 5 in Weight: 58.4 kg Body Mass Index (BMI): 21.4 Surgical Procedure: Operation Date: 08/29/21 13:05 Proposed Procedures Side Surgeon p Colt Sung MD Meds Allergies and Home Medications Allergies Allergy/AdvReac Type Severity Reaction Status Date / Time isotretinoin [From Accutane] Allergy Intermediate Hives Verified 08/29/21 12:18 latex Allergy Intermediate Skin Rash Verified 08/29/21 12:18 Tetracyclines Allergy Intermediate Hives Verified 08/29/21 12:18 minocycline Allergy Verified 08/29/21 12:18 Home Medication Medication Instructions Recorded cholecalciferol (vitamin D3) 2,000 units PO DAILY 03/12/14 sertraline 50 mg PO DAILY 03/12/14 sumatriptan succinate [Imitrex] 100 mg PO PRN 03/12/14 Proactive Cream 1 ea TOPICAL BID 07/03/17 rosuvastatin 20 mg tablet 20 mg PO DAILY 01/25/19 riboflavin (vitamin B2) 400 mg 400 mg PO DAILY 08/09/20 tablet bisacodyl 5 mg tablet,delayed 5 mg PO ONCE #4 tab 08/23/21 release polyethylene glycol 3350 17 17 g PO ONCE #238 g 08/23/21 gram/dose oral powder Current Visit Medications: Current Medications Generic Name Dose Route Start Last Admin Trade Name Freq PRN Reason Stop Dose Admin Hyoscyamine Sulfate 0.125 mg 08/29/21 06:56 Hyoscyamine 0.125 Mg Sl/Oral/Chew SL DIRECTED PRN Ringer's Solution 1,000 mls @ 80 mls/hr 08/29/21 06:00 IV 09/27/21 23:59 INFUSION BEATIRCE IV Miscellaneous Supplies 1 each 08/29/21 06:00 Iv Access IV 09/27/21 23:59 DIRECTED BEATRICE Ondansetron HCl 4 mg 08/29/21 06:56 Ondansetron 4 Mg/2 Ml Vial IVP Q4H PRN PRN Nausea / Vomiting Sodium Chloride 0 ml 08/29/21 06:00 Normal Saline Flush 10 Ml Syr IV 09/27/21 23:59 PRN PRN Sodium Chloride 0 ml 08/29/21 06:00 Normal Saline 10 Ml Vial IJ 09/27/21 23:59 DIRECTED PRN Sterile Water 0 ml 08/29/21 06:00 Water,Injection,Sterile 10 Ml Vial IJ 09/27/21 23:59 DIRECTED PRN PFSH Active Problems Active Problems: Problem Status Onset Code Migraine headache 12/25/11 G43.909 Tobacco use disorder 12/23/12 F17.200 Tubular adenoma of colon 04/03/16 D12.6 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 Chivo Nuñez, repeat 5 yrs Trigger Finger release 09/2013 Tobacco Smoking/Tobacco Use Status: Current every day Tobacco Type: cigarettes Smoking cigarettes per day: 10 Years smoked: 55 Alcohol Alcohol Intake: never Substance Use Substance use: Never Substance use type: does not use Prental History History 2 Para 2 Hx # Term Pregnancies Multiple births Hx # Pregnancies Ectopic pregnancies AB induced Hx Number of Living Children AB spontaneous Vital Signs and Lab Results Vital Signs Most Recent Vital Signs in EMR: Most Recent Vital Signs Temp Pulse Resp BP Pulse Ox 36.2 C L 96 H 18 104/96 H 98 08/29/21 11:55 08/29/21 11:55 08/29/21 11:55 08/29/21 11:55 08/29/21 11:55 Lab Results Blood Type / Crossmatch: No Data to Display Complete Blood Count: No Data to Display Complete Metabolic Panel: No Data to Display Liver Function Panel: No Data to Display Coagulation Panel: No Data to Display Cardiac Panel: No Data to Display Arterial Blood Gas: No Data to Display Venous Blood Gas: No Data to Display Pancreas Panel: No Data to Display Thyroid Panel: No Data to Display Infectious Disease: Coronavirus (COVID-19)(PCR) Negative (Negative) 08/27/21 09:56 08/27/21 Coronavirus 2019 Source Nasal/Nares 08/27/21 09:56 08/27/21 Blood Cultures: No Data to Display Toxicology Panel: No Data to Display Imaging and Studies Imaging and Studies Study information below may be from another EMR and interpreted by another provider. Please see original notes in EMR for more complete details. Carotid Artery Summary:: 11/2017: no hemodynamically significant cervical carotid artery stenosis. Pulmonary Function Summary: 2015: mild obstructive airway dz with no significant bronchodilator response. Anesthesia Assessment and Plan Anesthesia History Personal History: No History of Anesthesia Complications Family History: No Family History of Anesthesia Complications Exercise Tolerance Exercise Tolerance: Metabolic Equivalents<4 Cardiac & Pulmonary Exam Cardiac Exam: Normal S1/S2 Heart Sounds Pulmonary Exam: Clear Bilateral Breath Sounds Implantable Cardiac Device Does patient have a Pacemaker or an ICD?: No Airway Exam Known Difficult Airway: No Mallampati Class: 2 Mouth Opening: Normal (> 3cm) Thyromental Distance: Greater than 3 cm Neck Range of Motion: Full ROM Neck Circumference: Normal Teeth Condition: Normal Dentition ASA Classification ASA Score: ASA 2 Emergency Case?: No NPO Status NPO Status: NPO Clears >2 hours, Solids >8 hours Anesthesia Plan Resuscitation Status: Full Code Anesthesia Technique: General Anesthesia Airway Planned: Natural Airway Monitors Used: Standard Monitors Preoperative Comments:: 71 yo female for colo. Sig PMHx: smoker. denies major health issues. States that she does get indigestion at times.
[2021-08-29 12:51] VITALS: BMI 21.4
--- NOTE | 2021-08-29 13:55 | BOWEL_PTH ---
PATIENT: Celi Thomas LOC: [facility] U#:[id number] AGE/SX: 71/F ROOM: RE08/29/[address]: Misty Sung MD : 1950 BED: DIS: 08/29/2021 SPEC #: [id number] RECD: 08/29/21 16:12 STATUS: MALA REQ #: [id number] ALICIA: 08/29/21 13:[address]: Misty Sung DEPT: Surgical Specimen RECD BY: Rajani Villaseñor ENTERED: 08/29/21 16:13 SP TYPE: Bowel OTHR DR: Addie Franks Tissues: 1 - BIOPSY BOWEL 2 - BIOPSY BOWEL 3 - BIOPSY BOWEL 4 - BIOPSY BOWEL 5 - BIOPSY BOWEL Procedures: GROSS AND MICRO LEVEL 4 Comments: [id number]
[2021-08-29 14:34] VITALS: BP 90/48; PULSE 72; RESP 16; TEMP 36.7; O2SAT 97
[2021-08-29 14:42] VITALS: BP 105/58; PULSE 68; RESP 18; TEMP 36.3; O2SAT 97
--- NOTE | 2021-08-29 14:43 | W.ANESPOSTOP ---
Postoperative Evaluation Date, Time and Location Date Performed: 08/29/21 Time Performed: 14:43 Patient Location: Day Surgery Unit Vital Signs Most Recent Imported Vital Signs: Most Recent Vital Signs Temp Pulse Resp BP Pulse Ox 36.7 C 72 16 90/48 L 97 08/29/21 14:34 08/29/21 14:34 08/29/21 14:34 08/29/21 14:34 08/29/21 14:34 Most Recent Manually Entered Vital Signs: Adult Blood Pressure: 105/58 Heart Rate: 69 Respirations: 12 Oxygen Saturation (%): 97 Temperature (C): 36.3 C Pain Score (0-10 Scale): 0 Pain Score Most Recent Pain Score: Most Recent Pain Score Pain Level 0 08/29/21 14:34 Assessment Mental Status: Awake (Alert & Oriented to Patient Baseline) Airway and Respiratory Function: Patent airway with normal (patient baseline) respiratory exam Cardiovascular Function: Hemodynamically Stable Hydration Status: Adequately Hydrated Nausea & Vomiting: No Nausea or Vomiting Pain: Pt. Denies Any Pain Peripheral Nerve Block: Patient did not receive a nerve block
[2021-08-29 14:44] VITALS: BP 105/58; PULSE 69; RESP 12; TEMPC 36.3; O2SAT 97
[2021-08-29 15:15] VITALS: BP 133/68; PULSE 70; RESP 18; TEMP 36.5; O2SAT 98
== END 2021-08-29 16:15 | disposition home or self-care (01) ==
LOC: SUR 11:40
PROVIDERS: PCP Family Medicine; Visit Provider Surgery
PROC: 0DJD8ZZ Inspection of Lower Intestinal Tract, Via Natural or Artificial Opening Endoscopic (ICD-10-PCS; CPT 45378; principal; 2021-08-29 13:00)
DX: Z12.11 Encounter for screening for malignant neoplasm of colon (principal); K63.5 Polyp of colon; K57.30 Diverticulosis of large intestine without perforation or abscess without bleeding; Z86.010 Personal history of colon polyps; D12.2 Benign neoplasm of ascending colon; D12.3 Benign neoplasm of transverse colon
CPT/HCPCS: 45380; 88305; J3490

== ENCOUNTER 2021-09-26 02:12 | Outpatient (CLI) | payer MEDICARE, SELFPAY ==
[2021-09-26 10:07] LABS: ALT 20 U/L (14-59); AST 19 U/L (15-37); Albumin 3.7 g/dL (3.4-5.0); Alkaline Phosphatase 109 U/L (46-116); Anion Gap 5.9 mmol/L (3-11); BUN 20 mg/dL (7-18); Bilirubin, Total 0.3 mg/dL (0.2-1.0); CO2 29.1 mmol/L (21.0-32.0); CREATININE 0.9 mg/dL (0.55-1.02); Calcium 9.2 mg/dL (8.5-10.1); Chloride 106 mmol/L (98-107); Glucose 102 mg/dL (74-106); Potassium 3.7 mmol/L (3.5-5.1); Sodium 141 mmol/L (136-145); Total Protein 6.7 g/dL (6.4-8.2)
[2021-09-27 05:51] LABS: Vitamin D 25 Total 46.9 ng/mL (30-100)
== END 2021-09-26 02:13 | disposition home or self-care (01) ==
PROVIDERS: PCP Family Medicine; Visit Provider Nurse Practitioner Family
DX: M81.0 Age-related osteoporosis without current pathological fracture (principal)
CPT/HCPCS: 36415; 80053; 82306

== ENCOUNTER 2021-10-03 01:07 | Outpatient (RCR) | payer MEDICARE, SELFPAY ==
[2021-10-03] MEDS: Normal Saline Flush 10 ML SYR IVP (12:56)
[2021-10-03 13:02] VITALS: BP 120/73; PULSE 63; RESP 16; TEMP 36.5; O2SAT 98
== END 2021-10-08 23:59 | disposition home or self-care (01) ==
LOC: INF 01:07
PROVIDERS: PCP Family Medicine; Visit Provider Family Medicine
DX: M81.0 Age-related osteoporosis without current pathological fracture (principal)
CPT/HCPCS: 96365; J3489

== ENCOUNTER 2021-12-13 00:40 | Outpatient (CLI) | payer MEDICARE, SELFPAY ==
--- NOTE | 2021-12-13 12:59 | DI.CT_ITS ---
Exam(s) CT CHEST WO EXAM: CT CHEST WO CLINICAL HISTORY: ABNL CHEST CT, R91.8; CONTINUOUS TOBACCO ABUSE, F17.200. TECHNIQUE: Imaging protocol: Axial computed tomography images were obtained and coronal and sagittal reformatted images were created and reviewed. COMPARISON: CT CT CHEST LUNG CANCER SCREEN from 06/25/2021 FINDINGS: Tracheobronchial tree: Patent where visualized. Pulmonary parenchyma: No consolidation or dominant measurable mass. [id number] emphysematous ch anges are present in the lungs. Stable peripheral interstitial findings are seen in the right lower lobe. These appear chronic. Mediastinum and Malika: No dominant adenopathy or fluid collection. The esophagus is unremarkable. Thyroid gland: Unremarkable. Pleura: No effusion or pneumothorax. Heart: The heart is not dilated. Coronary artery calcifications are present. No pericardial effusion . Aorta: Thoracic aorta non-dilated. Atherosclerosis. Upper abdomen: Unremarkable. Lymph nodes: Within normal limits. Soft tissues: Unremarkable. Bones:Within normal limits for the patient's age. IMPRESSION: 1. Stable appearance in the lungs. The findings in the right lung base likely reflect chronic pulmon odell scarring. 2. No acute pulmonary process. RADIATION DOSE DELIVERED: 407.67mGy.cm Total DLP 407.67mGy.cm Total DLP DATA REPOSITORY: All CT scans at this facility are submitted to the National Radiology Data Registry (NRDR) Dose Index Registry (DIR) with the [employer] (ACR). RADIATION OPTIMIZATION: All CT scans at this facility use at least one of these dose optimization te chniques: automated exposure control; mA and/or kV adjustment per patient size (includes targeted exa ms where dose is matched to clinical indication); or iterative reconstruction.
== END 2021-12-13 01:00 ==
PROVIDERS: PCP Family Medicine; Visit Provider Family Medicine
DX: R91.8 Other nonspecific abnormal finding of lung field (principal); F17.210 Nicotine dependence, cigarettes, uncomplicated; J84.89 Other specified interstitial pulmonary diseases; J98.4 Other disorders of lung
CPT/HCPCS: 71250

== ENCOUNTER → 2022-03-14 01:24 | Outpatient (CLI) | payer MEDICARE, SELFPAY ==
--- NOTE | 2022-03-14 12:15 | DI.MAMMO_ITS ---
Exam(s) MAMMO SCREENING EXAM: MAMMO SCREENING CLINICAL HISTORY: screening. TECHNIQUE: Bilateral full field digital CC and MLO mammographic images were obtained with 3D tomosyn thesis and utilizing computer aided detection (CAD). COMPARISON: Prior mammograms were reviewed, the most recent being February 2020. FINDINGS: There has been no significant change in the appearance and distribution of the fibroglandular tissue. There are no new findings in the immediate vicinity of the biopsy marker clip in the right breast. There are no new spiculated masses nor malignant appearing microcalcification groups. Benign-appearing microcalcifications again noted There is no significant architectural distortion nor skin thickening-retraction. IMPRESSION: No radiographic evidence of malignancy. BI-RADS Category 2 - Benign Findings Breast Density - Category B - Scattered areas of fibroglandular density Breast density Category C or D implies that the patient has dense breast tissue. Dense breast tissue can make it harder to find cancer on a mammogram. Dense breast tissue is also associated with an incr eased risk of breast cancer. This information about the result of the mammogram report was provided to the patient to raise their awareness. Use this report when you speak with the patient about their risks for breast cancer, which includes their family history. At that time, you may recommend additional screening tests (Ultrasoun d or MRI) as these tests may add significant information. A negative radiographic report should not delay biopsy if a dominant or clinically suspicious mass is present. Up to ten percent of cancers are not identified on mammography. A negative report may reinforce clinical impression. Adenosis and dense breasts may obscure an underlying neoplasm. False positive reports average 6 to 10%. Patient will receive a letter notifying them of these results.
== END ==
PROVIDERS: PCP Family Medicine; Visit Provider Nurse Practitioner Family
DX: Z12.31 Encounter for screening mammogram for malignant neoplasm of breast (principal); R92.0 Mammographic microcalcification found on diagnostic imaging of breast
CPT/HCPCS: 77063; 77067

== ENCOUNTER 2022-06-12 14:16 | Outpatient (REF) | payer MEDICARE, SELFPAY ==
[2022-06-12 14:59] LABS: HCT 44.7 % (36.0-46.0); HGB 15.4 g/dL (11.2-15.7); MCH 30.7 pg (27.0-33.0); MCHC 34.5 % (32.0-36.0); MCV 89 fL (80-95); Platelet Count 221 10^3/uL (130-400); RBC 5.01 10^6/uL (3.93-5.22); RDW 12.2 % (11.7-14.6); RDW-SD 39.9 fL; WBC 5.73 10^3/uL (4.4-10.8)
== END 2022-06-12 14:17 | disposition home or self-care (01) ==
LOC: NCHCN 14:16
PROVIDERS: PCP Family Medicine; Visit Provider Family Medicine
DX: R23.8 Other skin changes (principal)
CPT/HCPCS: 85027

== ENCOUNTER 2022-08-08 03:55 | Outpatient (CLI) | payer MEDICARE, SELFPAY ==
[2022-08-08 13:23] LABS: ALT 24 U/L (14-59); AST 18 U/L (15-37); Albumin 3.6 g/dL (3.4-5.0); Alkaline Phosphatase 75 U/L (46-116); Anion Gap 6.7 mmol/L (3-11); BUN 22 mg/dL (7-18); Bilirubin, Total 0.3 mg/dL (0.2-1.0); CO2 29.3 mmol/L (21.0-32.0); CREATININE 0.9 mg/dL (0.55-1.02); Calcium 9.3 mg/dL (8.5-10.1); Chloride 104 mmol/L (98-107); Estimated GFR 67.92 (mL/min/1.73m2); Glucose 127 mg/dL (74-106); Potassium 3.7 mmol/L (3.5-5.1); Sodium 140 mmol/L (136-145)
[2022-08-08 13:48] LABS: Vitamin D 25 Total 43.6 ng/mL (30-100)
== END 2022-08-08 03:56 | disposition home or self-care (01) ==
PROVIDERS: PCP Family Medicine; Visit Provider Nurse Practitioner Family
DX: M81.0 Age-related osteoporosis without current pathological fracture (principal)
CPT/HCPCS: 36415; 80053; 82306

== ENCOUNTER 2022-10-28 08:11 | Emergency (ER) | payer MEDICARE, SELFPAY ==
[2022-10-28] VITALS (31 sets, daily range): BP systolic 77–120; BP diastolic 46–84; PULSE 66–84; RESP 11–21; TEMP 36.6; O2SAT 94–98
--- NOTE | 2022-10-28 08:15 | RT.EKG_ITS ---
APPROVED REPORT Exam: Resting ECG Reason for Exam: syncope Patient Location: E HR:74 bpm ECG Measurements Heart Rate 74 AXIS AK 154 P 77 QRSd 92 QRS 80 QT 387 T 58 QTc 429 Conclusion Sinus rhythm...normal P axis, V-rate 60- 99 Probable left atrial enlargement...P >50mS, <-0.10mV V1
[2022-10-28] MEDS: Meclizine 25 MG TAB PO (08:51)
[2022-10-28] MEDS: Normal Saline 500 ML IV ×2 (08:51→09:37)
[2022-10-28] MEDS: Ondansetron 4 MG/2 ML VIAL IVP (08:51)
[2022-10-28 08:58] LABS: Absolute Basophil Count 0.04 10^3/uL (0.0-0.2); HCT 45.5 % (36.0-46.0); HGB 15.2 g/dL (11.2-15.7); MCH 30.6 pg (27.0-33.0); MCHC 33.4 % (32.0-36.0); MCV 92 fL (80-95); MPV 8.5 fL (8.0-11.0); Platelet Count 200 10^3/uL (130-400); RBC 4.97 10^6/uL (3.93-5.22); RDW 12.3 % (11.7-14.6); RDW-SD 41.1 fL; WBC 4.47 10^3/uL (4.4-10.8)
[2022-10-28 09:07] LABS: ALT 23 U/L (14-59); AST 28 U/L (15-37); Albumin 3.7 g/dL (3.4-5.0); Alkaline Phosphatase 79 U/L (46-116); Anion Gap 12.3 mmol/L (3-11); BUN 17 mg/dL (7-18); Bilirubin, Total 0.4 mg/dL (0.2-1.0); CO2 23.7 mmol/L (21.0-32.0); CREATININE 1.1 mg/dL (0.55-1.02); Calcium 9.6 mg/dL (8.5-10.1); Chloride 102 mmol/L (98-107); Estimated GFR 53.39 (mL/min/1.73m2); Glucose 142 mg/dL (74-106); Lipase 44 U/L (16-77); Magnesium 1.7 mg/dL (1.8-2.4); Potassium 3.9 mmol/L (3.5-5.1); Sodium 138 mmol/L (136-145); Total Protein 7.1 g/dL (6.4-8.2); Troponin I < 50 ng/L (<or=60)
--- NOTE | 2022-10-28 09:15 | DI.CT_ITS ---
Exam(s) CT BRAIN NECK CTA EXAM: CT BRAIN NECK CTA CLINICAL HISTORY: Dizziness, headache. TECHNIQUE: Imaging Protocol: Axial CT angiography was performed with multi-slice acquisition and mu lti-planar and 3D reconstructions. CONTRAST MATERIAL: Intravenous: Omnipaque 350 Contrast volume:structured data in ml COMPARISON: CT UPPER ABD WITH CONTRAST (P) from 09/30/[address] HEAD WO from 10/26/[address] CHEST WO from 12/13/2021 FINDINGS: CT Head W/O and W contrast: Ventricles and Extra axial spaces: Normal in size and morphology for the patient's age. Hemorrhage: None. Cerebral parenchyma: Mild atrophy. Midline shift: None. Brainstem/Cerebellum: Normal. Calvarium: Normal. Visualized Paranasal sinuses/Mastoids: Clear. Soft Tissues: Unremarkable. Enhancement: Normal. CTA Brain W: Internal Carotid Arteries: Petrous: Normal. Cavernous: Normal. Cerebral: Normal. Middle Cerebral Arteries: Right: No aneurysm, occlusion or significant stenosis. Left: No aneurysm, occlusion or significant stenosis. Anterior Cerebral Arteries: Right: No aneurysm, occlusion or significant stenosis. Left: No aneurysm, occlusion or significant stenosis. Posterior cerebral Arteries: Right: No aneurysm, occlusion or significant stenosis. Left: No aneurysm, occlusion or significant stenosis. Vertebral Arteries: Right: No aneurysm, occlusion or significant stenosis. Left: No aneurysm, occlusion or significant stenosis. Basilar Artery: No aneurysm, occlusion or significant stenosis. CTA Neck W: Common Carotid: Right: No dissection, occlusion or significant stenosis. Left: No dissection, occlusion or significant stenosis. External Carotid: Right: No dissection, occlusion or significant stenosis. Left: No dissection, occlusion or significant stenosis. Internal Carotid: Right: Heavy calcific plaque at common carotid bulb and proximal internal carotid artery causing alejandro re stenosis. No dissection, occlusion . Left: Moderate calcific plaque at common, or added bulb and proximal internal carotid artery causing less than 50 percent stenosis. No dissection, occlusion . Vertebral Artery: Right: No dissection, occlusion or significant stenosis. Left: No dissection, occlusion or significant stenosis. Lung Apices: Adenopathy versus masses adjacent to the aortic arch. 8 millimeter left upper lobe pulm onary nodule. Increased densities also seen in anteriorly in left upper lobe. These findings were n ot present on the previous exam. Underlying emphysematous changes are noted. Bones: Nerve changes. No suspicious lesions. Soft Tissues: Normal. IMPRESSION: 1. Normal CTA examination of the [place]. 2. Unremarkable CT Head. 3. Severe stenosis secondary to calcific plaque of the proximal right internal carotid artery. Less than 50 percent stenosis secondary to calcific plaque left proximal internal carotid artery. 4. Adenopathy versus mass adjacent aortic arch, not fully included on the exam. Left upper lobe nodu le. Question of left upper lobe infiltrate. 5. Findings called to Noah Dominguez, provider in the emergency department. Unexpected findings RADIATION DOSE DELIVERED: 1,956.89mGy.cm Total DLP DATA REPOSITORY: All CT scans at this facility are submitted to the National Radiology Data Registry (NRDR) Dose Index Registry (DIR) with the [employer] (ACR). RADIATION OPTIMIZATION: All CT scans at this facility use at least one of these dose optimization te chniques: automated exposure control; mA and/or kV adjustment per patient size (includes targeted exa ms where dose is matched to clinical indication); or iterative reconstruction.
[2022-10-28] MEDS: Magnesium Oxide 400 MG TAB PO (09:27)
[2022-10-28 09:30] LABS: Absolute Lymphocyte Count 1.39 10^3/uL (1.2-3.4); Absolute Monocyte Count 0.45 10^3/uL (0.1-0.8); Absolute Neutrophil Count 2.59 10^3/uL (1.2-6.7); Diff Comment Manual Differential; RBC Morphology Normal
--- NOTE | 2022-10-28 09:57 | ED.GENADUL_ITS ---
Discharge Plan Disposition Patient Disposition: Home Condition: Stable Discharge Details Clinical Impression: Mass of left lung, Vertigo, Viral illness Primary Care Provider: Addie Franks ED Provider: Noah Swann Home Meds and New Rx's Prescriptions: New meclizine 12.5 mg tablet 12.5 mg PO BID-QID PRN (Reason: dizziness) Qty: 20 0RF Continued rosuvastatin 20 mg tablet 20 mg PO DAILY riboflavin (vitamin B2) 400 mg tablet 400 mg PO DAILY sumatriptan succinate [Imitrex] 100 MG tablet 100 mg PO PRN PRN sertraline 50 MG tablet 50 mg PO DAILY cholecalciferol (vitamin D3) 1,000 UNITS tablet 2,000 units PO DAILY Proactive Cream 1 ea Topical BID Discharge Instructions Instructions: Vertigo (ED), Viral Syndrome (ED) Additional Instructions: Your presenting symptoms have resolved which is reassuring along with otherwise nonworrisome labs. There was an incidental finding of a lung mass on your left lung that will need urgent follow-up. Please follow-up with the pulmonology clinic and call them tomorrow for arrangement of your follow-up appointment. You will need further testing to further evaluate the exact nature of this mass and treatment plan. In the meantime if you have any new or significant worsening of symptoms or further concerns including difficulty breathing, chest pain, syncope return to the emergency department immediately for reassessment. Referrals: Yudy Haywood MD [ [facility] STAFF PHYSICIAN] - 3 days (Please call the office tomorrow for arrangement of follow-up appointment) Discharge Data Discharge Date/Time-TO BE ENTERED AT DEPARTURE: 10/28/22 12:44 Medical Decision Making Patient presenting to the emergency department for chief complaint of nausea vomiting diarrhea and dizziness. This started on Friday and has been persistent over the weekend. She does state just prior to having symptoms she was around her grandson who is also developed similar viral illness. Today with any movement she has felt dizziness and headache. She did state some slight chest pressure which is resolved. Movement makes dizziness worse and patient does report history of vertigo. She has been having difficulty with intake due to symptoms but does states she has been able to stay somewhat hydrated with small sips of water. Physical exam shows no abdominal tenderness, normal HEENT exam, nondiagnostic nonfocal hints exam, attempt to perform Dover-Hallpike was and unable to be performed due to severe dizziness but no nystagmus was seen on any exam. We will plan on checking patient's labs, performing CTA of head and neck and will give patient Zofran and meclizine pending results. Differential diagnosis to include viral illness with exacerbated vertigo, cerebellar stroke, other intracranial pathology. At this time I doubt ACS but will perform EKG and troponin, doubt PE. Please review physician interpretation for full interpretation of EKG but patient is in sinus rhythm with no acute findings to suggest STEMI. Reviewed labs and CBC shows no significant leukocytosis or anemia, CMP is overall nondiagnostic. Patient is slightly low on mag with 1.7 and will orally replete. Did speak with radiologist in regards to CT imaging of brain and neck which stated no acute abnormalities noted beyond stenosis of the carotids. There was an incidental finding of possible infiltrate and abnormality in the left upper lobe of the chest. Recommended for further imaging. I feel that patient symptoms do mostly align with viral illness exacerbating her vertigo. Patient was reassessed and states near full resolution of symptoms after fluids Zofran and meclizine. While I feel this is reassuring I did discuss with patient abnormal finding on left lung. After discussion she was agreeable to having CT chest performed. CT chest revealed significant mass with involvement of bronchioles and vessels. No cardiomegaly or dilation was noted, no severe airway obstruction or closure was noted. Patient denies any chest pain or shortness of breath at this time. While this mass is very concerning I do feel that patient is appropriate for outpatient disposition given full resolution of presenting symptoms and stable vital signs with no hypoxia noted. I did call and discussed case with Dr. Haywood continuous miner operator helper. She agreed to see patient in urgent follow-up for further evaluation of mass. Referral was sent. Close monitoring of symptoms along with low threshold for return and follow-up precautions was discussed with patient. After discussion of diagnosis and plan of care patient has no further needs, questions, or concerns and states clear understanding to return to the emergency department for any worsening symptoms. This documentation was generated using [employer] system, please disregard any oddities of phrase or misspellings. Imaging Data Radiologic Study: Imaging: CT Scan Radiologist's impression: Exam(s) a CT:CT brain & neck CTA Exam(s) CT BRAIN NECK CTA EXAM: CT BRAIN NECK CTA CLINICAL HISTORY: Dizziness, headache. TECHNIQUE: Imaging Protocol: Axial CT angiography was performed with multi- slice acquisition and multi-planar and 3D reconstructions. CONTRAST MATERIAL: Intravenous: Omnipaque 350 Contrast volume:structured data in ml COMPARISON: CT UPPER ABD WITH CONTRAST (P) from 09/30/[address] HEAD WO from 10/26/[address] CHEST WO from 12/13/2021 FINDINGS: CT Head W/O and W contrast: Ventricles and Extra axial spaces: Normal in size and morphology for the patient's age. Hemorrhage: None. Cerebral parenchyma: Mild atrophy. Midline shift: None. Brainstem/Cerebellum: Normal. Calvarium: Normal. Visualized Paranasal sinuses/Mastoids: Clear. Soft Tissues: Unremarkable. Enhancement: Normal. CTA Brain W: Internal Carotid Arteries: Petrous: Normal. Cavernous: Normal. Cerebral: Normal. Middle Cerebral Arteries: Right: No aneurysm, occlusion or significant stenosis. Left: No aneurysm, occlusion or significant stenosis. Anterior Cerebral Arteries: Right: No aneurysm, occlusion or significant stenosis. Left: No aneurysm, occlusion or significant stenosis. Posterior cerebral Arteries: Right: No aneurysm, occlusion or significant stenosis. Left: No aneurysm, occlusion or significant stenosis. Vertebral Arteries: Right: No aneurysm, occlusion or significant stenosis. Left: No aneurysm, occlusion or significant stenosis. Basilar Artery: No aneurysm, occlusion or significant stenosis. CTA Neck W: Common Carotid: Right: No dissection, occlusion or significant stenosis. Left: No dissection, occlusion or significant stenosis. External Carotid: Right: No dissection, occlusion or significant stenosis. Left: No dissection, occlusion or significant stenosis. Internal Carotid: Right: Heavy calcific plaque at common carotid bulb and proximal internal carotid artery causing severe stenosis. No dissection, occlusion . Left: Moderate calcific plaque at common, or added bulb and proximal internal carotid artery causing less than 50 percent stenosis. No dissection, occlusion . Vertebral Artery: Right: No dissection, occlusion or significant stenosis. Left: No dissection, occlusion or significant stenosis. Lung Apices: Adenopathy versus masses adjacent to the aortic arch. 8 millimeter left upper lobe pulmonary nodule. Increased densities also seen in anteriorly in left upper lobe. These findings were not present on the previous exam. Underlying emphysematous changes are noted. Bones: Nerve changes. No suspicious lesions. Soft Tissues: Normal. IMPRESSION: 1. Normal CTA examination of the [place] of [place]. 2. Unremarkable CT Head. 3. Severe stenosis secondary to calcific plaque of the proximal right internal carotid artery. Less than 50 percent stenosis secondary to calcific plaque left proximal internal carotid artery. 4. Adenopathy versus mass adjacent aortic arch, not fully included on the exam. Left upper lobe nodule. Question of left upper lobe infiltrate. Radiologic Study #2: Imaging: CT Scan Radiologist's impression: Exam(s) a CT:CT chest w Exam(s) CT CHEST W EXAM: CT CHEST W CLINICAL HISTORY: Further evaluation of lung mass TECHNIQUE: Imaging Protocol: Axial computed tomography images with coronal and sagittal reformatted images were created and reviewed CONTRAST MATERIAL: Intravenous: Omnipaque 350 Contrast volume:70 ml. COMPARISON: CT CT CHEST WO from 12/13/2021 FINDINGS: Pulmonary parenchyma: Small patchy infiltrate left upper lobe. Small left upper lobe nodule, 8 millimeter maximal dimension. Tracheobronchial tree: No bronchiectasis or mucous plugging. Mediastinum and Malika: 4 by 5 x 4.2 centimeter mass around the left superior hilum causing vascular pruning and bronchial occlusion.. Adjacent adenopathy extending along the aortic arch 4 by 2 cm. Pleura: No effusion or pneumothorax. Heart: The heart is not dilated. coronary artery calcifications are seen. Aorta: Thoracic aorta non-dilated. Atherosclerotic changes. Upper abdomen: Unremarkable. Bones: Mild degenerative changes. Soft tissues: Unremarkable. Lab Data Lab results reviewed: Yes I reviewed the patient's lab results. HPI General Mode of arrival: ambulatory . Date/Time Provider Initiated Documentation: 10/28/22 08:28 . Limitations to Documentation: no limitations . Information obtained by: patient and RN notes reviewed . History of Present Illness 72 year old F presents to the emergency department with the chief complaint of dizzy, nvd headache and near syncope, described as mild, Quality is described as aching, and is localized to the head. Patient started experiencing this day(s) (4) and it has been constant. No relieving factors improve symptom(s), Movement worsens symptoms . Patient notes cough; denies chest pain and shortness of breath. Patient did receive the following treatments prior to arrival, none Related Data Home Medications Medication Instructions Recorded Confirmed cholecalciferol (vitamin D3) 25 2,000 units PO DAILY 03/12/14 10/28/22 mcg (1,000 unit) tablet sertraline 50 mg tablet 50 mg PO DAILY 03/12/14 10/28/22 sumatriptan succinate 100 mg 100 mg PO PRN PRN 03/12/14 10/28/22 tablet (Imitrex) Proactive Cream 1 ea topical BID 07/03/17 10/28/22 rosuvastatin 20 mg tablet 20 mg PO DAILY 01/25/19 10/28/22 riboflavin (vitamin B2) 400 mg 400 mg PO DAILY 08/09/20 10/28/22 tablet meclizine 12.5 mg tablet 12.5 mg PO BID-QID PRN dizziness 10/28/22 #20 tabs Previous Rx's Medication Instructions Recorded meclizine 12.5 mg tablet 12.5 mg PO BID-QID PRN dizziness 10/28/22 #20 tabs Allergies Allergy/AdvReac Type Severity Reaction Status Date / Time isotretinoin [From Accutane] Allergy Intermediate Hives Verified 10/28/22 08:24 latex Allergy Intermediate Skin Rash Verified 10/28/22 08:24 Tetracyclines Allergy Intermediate Hives Verified 10/28/22 08:24 minocycline Allergy Verified 10/28/22 08:24 General Stated Complaint: Dizzy/Sync SADA: 2 Review of Systems Constitutional Constitutional: Reports chills, Denies fever(s), Reports headache(s) and Reports malaise Eyes Eyes: Denies change in vision ENT Ears, Nose, Mouth, and Throat: Reports dizziness, Denies otalgia, Reports headache(s), Reports nasal congestion, Denies nasal discharge, Denies neck pain, Denies sinus pain, Denies sinus pressure and Denies sore throat Cardiovascular Cardiovascular: Denies chest pain, Denies syncope, Reports lightheadedness and Denies dyspnea Respiratory Respiratory: Reports cough (Mild dry intermittent) and Denies dyspnea Gastrointestinal Gastrointestinal: Denies abdominal pain, Reports diarrhea, Reports nausea and Reports vomiting Genitourinary Genitourinary: Denies dysuria Musculoskeletal Musculoskeletal: Denies neck pain Integumentary/Breasts Skin/Breast: Denies rash Neurologic Neurologic: Reports dizziness, Denies syncope and Reports headache(s) PFSH All Active Problems (Updated 10/28/22 @ 12:24 by Noah Swann NP) Mass of left lung (Acute) Vertigo (Acute) Viral illness (Acute) Benign paroxysmal positional vertigo of right ear (Acute) Blood in right ear canal (Acute) Hyperplastic colon polyp (Acute) Migraine headache (Chronic 12/25/11) Tobacco use disorder (Chronic 12/23/12) Tubular adenoma of colon (Chronic 04/03/16) Asymmetrical sensorineural hearing loss (Acute) Impairment of speech discrimination (Acute) Medical History 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 Repeat in 5 years. 02/[address] Chivo Nuñez 04/03/2016 tubular adenomas, Dr. Chivo Nuñez, repeat 5 yrs Trigger Finger release 09/2013 Family History Mother Personal history of malignant neoplasm BREAST Father Essential hypertension Personal history of malignant neoplasm LUNG/MELANOMA Heart disease Hyperlipidemia Sister No problems noted. Grandfather Personal history of malignant neoplasm STOMACH Grandfather Personal history of malignant neoplasm Grandmother No problems noted. Grandmother Personal history of malignant neoplasm Social History Smoking/Tobacco Use Status: Current every day Tobacco Type: cigarettes Years smoked: 55 Smoking risk assessment performed?: Yes Alcohol Intake: never Drug use: Never Substance use type: does not use Current gender identity: female Do you feel safe at home: Yes Do you feel safe in your relationship?: Yes Additional Social history: has alzheimers Female Reproductive History Menstrual Menopause type: natural History History 2 Para 2 Hx # Term Pregnancies Multiple births Hx # Pregnancies Ectopic pregnancies AB induced Hx Number of Living Children AB spontaneous Exam Const General: cooperative, no acute distress and well groomed Orientation: alert, awake and oriented x3 HENMT Head: normal to inspection Ears: hearing grossly normal bilaterally and TM's normal bilaterally Mouth: oral mucosae normal and moist mucous membranes Throat: posterior oropharynx normal Eyes Visual Mattson: normal visual mattson by confrontation Alignment and Position: alignment normal Periorbital: periorbital findings normal Eyelids: eyelids normal Sclera: sclerae normal Pupils: PERRL EOM: EOM intact bilaterally Neck Neck: normal visual inspection, full ROM, no lymphadenopathy and no meningeal signs Resp Effort & Inspection: normal respiratory effort and able to speak in complete sentences Auscultation: clear to auscultation bilaterally Cardio Rate: regular rate Rhythm: regular rhythm Heart Sounds: S1 normal and S2 normal Neuro General: patient alert, patient awake, patient oriented x3, tone normal, moves all extremities, CN's II-XI intact bilaterally and not confused Cognition: normal cognition Speech: speech normal Motor: muscle tone normal throughout, no pronator drift, no movement abnormalities noted and no fasciculations Sensory Exam: no sensory deficits noted Coordination: Does not sway with eyes open Course Vital Signs Vital signs: Vital Signs Temperature 36.6 C 10/28/22 08:19 Pulse 74 10/28/22 08:19 Respiratory Rate 21 10/28/22 08:19 Blood Pressure 108/54 L 10/28/22 08:19 Pulse Oximetry 97 10/28/22 08:19 Temperature 36.6 C 10/28/22 08:19 Temperature Source Skin 10/28/22 08:19 Pulse 82 10/28/22 09:31 Pulse 73 10/28/22 09:40 Respiratory Rate 15 10/28/22 09:40 Respiratory Effort Normal, Non-Labored 10/28/22 08:59 Respiratory Depth Normal 10/28/22 08:59 Respiratory Pattern Normal 10/28/22 08:59 Blood Pressure 101/46 L 10/28/22 09:31 Blood Pressure Mean 58 10/28/22 09:31 Pulse Oximetry 97 10/28/22 09:40 Oxygen Delivery Method Room Air 10/28/22 08:19 Oxygen Flow Rate 0 10/28/22 08:19 Pain Level 0 10/28/22 08:19 Lab/Test Results Lab/Test Results: Laboratory Tests Range/Units 10/28/22 10/28/22 08:30 08:30 WBC (4.4-10.8) 10^3/uL 4.47 RBC (3.93-5.22) 10^6/uL 4.97 Hgb (11.2-15.7) g/dL 15.2 Hct (36.0-46.0) % 45.5 MCV (80-95) fL 92 MCH (27.0-33.0) pg 30.6 MCHC (32.0-36.0) % 33.4 RDW (11.7-14.6) % 12.3 Plt Count (130-400) 10^3/uL 200 MPV (8.0-11.0) fL 8.5 Immature Gran % See Differential Neutrophils % 58.0 Lymphocytes % 31.0 Monocytes % 10.0 Eosinophils % 0.0 Basophils % 1.0 Nucleated RBC % (0.0-0.3) % 0.0 Absolute Neutrophils (1.2-6.7) 10^3/uL 2.59 Absolute Lymphocytes (1.2-3.4) 10^3/uL 1.39 Absolute Monocytes (0.1-0.8) 10^3/uL 0.45 Absolute Eosinophils (0.0-0.7) 10^3/uL 0.00 Absolute Basophils (0.0-0.2) 10^3/uL 0.04 RBC Morphology Normal Sodium (136-145) mmol/L 138 Potassium (3.5-5.1) mmol/L 3.9 Chloride (98-107) mmol/L 102 Carbon Dioxide (21.0-32.0) mmol/L 23.7 Anion Gap (3-11) mmol/L 12.3 H BUN (7-18) mg/dL 17 Creatinine (0.55-1.02) mg/dL 1.1 H Est GFR (CKD-EPI 2020) (mL/min/1.73m2) 53.39 Glucose (74-106) mg/dL 142 H Calcium (8.5-10.1) mg/dL 9.6 Magnesium (1.8-2.4) mg/dL 1.7 L Total Bilirubin (0.2-1.0) mg/dL 0.4 AST (15-37) U/L 28 ALT (14-59) U/L 23 Alkaline Phosphatase (46-116) U/L 79 Troponin I (<or=60) ng/L < 50 Total Protein (6.4-8.2) g/dL 7.1 Albumin (3.4-5.0) g/dL 3.7 Lipase (16-77) U/L 44
[2022-10-28] MEDS: Omnipaque 350 MG/ML 100 ML BTL IJ ×2 (10:11→11:18)
[2022-10-28] MEDS: Normal Saline - Diluent 50 ML VIAL IV ×2 (10:13→11:19)
[2022-10-28] MEDS: Normal Saline Flush 10 ML SYR IVP ×2 (10:13→11:19)
[2022-10-28 10:29] LABS: Source Nasal/Nares
--- NOTE | 2022-10-28 10:50 | DI.CT_ITS ---
Exam(s) CT CHEST W EXAM: CT CHEST W CLINICAL HISTORY: Further evaluation of lung mass TECHNIQUE: Imaging Protocol: Axial computed tomography images with coronal and sagittal reformatted images were created and reviewed CONTRAST MATERIAL: Intravenous: Omnipaque 350 Contrast volume:70 ml. COMPARISON: CT CT CHEST WO from 12/13/2021 FINDINGS: Pulmonary parenchyma: Small patchy infiltrate left upper lobe. Small left upper lobe nodule, 8 princess meter maximal dimension. Tracheobronchial tree: No bronchiectasis or mucous plugging. Mediastinum and Malika: 4 by 5 x 4.2 centimeter mass around the left superior hilum causing vascular pr uning and bronchial occlusion.. Adjacent adenopathy extending along the aortic arch 4 by 2 cm. Pleura: No effusion or pneumothorax. Heart: The heart is not dilated. coronary artery calcifications are seen. Aorta: Thoracic aorta non-dilated. Atherosclerotic changes. Upper abdomen: Unremarkable. Bones: Mild degenerative changes. Soft tissues: Unremarkable. IMPRESSION: 4 x 5 centimeter left perihilar mass causing bronchial occlusion and vascular narrowing. Adjacent ad enopathy. Small infiltrate left upper lobe may be postobstructive. 8 millimeter left upper lobe nod ule. Findings called to Dr. Pito Hollis of the emergency department. RADIATION DOSE DELIVERED: 400.63mGy.cm Total DLP DATA REPOSITORY: All CT scans at this facility are submitted to the National Radiology Data Registry (NRDR) Dose Index Registry (DIR) with the [employer] (ACR). RADIATION OPTIMIZATION: All CT scans at this facility use at least one of these dose optimization te chniques: automated exposure control; mA and/or kV adjustment per patient size (includes targeted exa ms where dose is matched to clinical indication); or iterative reconstruction.
[2022-10-28 10:59] LABS: COVID-19 PCR Negative (Negative)
--- NOTE | 2022-10-28 12:21 | NUR.NOTE ---
Nursing Note: Referral faxed to [facility] Pulmonology for worrisome lung mass, URGENT follow up. Spoke with Dr. Haywood.
[2022-10-28 12:54] LABS: Bilirubin Negative (Negative); Blood Trace-intact (Negative); Clarity Clear (Clear); Glucose Negative (Negative); Ketones Negative (Negative); Leukocyte Esterase Negative (Negative); Nitrite Negative (Negative); Urobilinogen 0.2 mg/dL (Up to 0.2); pH 5.5 (5-8)
[2022-10-28 13:03] LABS: Bacteria Negative HPF (Negative); C & S Indicated? No; Casts 0-2 Hyaline LPF (Negative); Crystals Negative HPF (Negative); Epithelial Cells Few HPF (Negative); Mucus Negative (Negative); RBC 0-2 HPF (0-2); WBC Negative HPF (0-5)
== END 2022-10-28 12:44 | disposition home or self-care (01) ==
PROVIDERS: Emergency Provider Nurse Practitioner Family; PCP Family Medicine
DX: B34.9 Viral infection, unspecified (principal); R42 Dizziness and giddiness; R91.8 Other nonspecific abnormal finding of lung field; E83.42 Hypomagnesemia; Z20.822 Contact with and (suspected) exposure to COVID-19
CPT/HCPCS: 70496; 70498; 80053; 83690; 87635; 93005; 96361; 96374; 99284; 99285; 71260; 81003; 81015; 83735; 84484; 85025; 93010; J2405; J3490

== ENCOUNTER 2022-11-04 02:44 | Outpatient (CLI) | payer MEDICARE, SELFPAY ==
[2022-11-06 15:12] LABS: Blastomyces Ag Result Not Detected; Blastomyces Ag Value Not Detected
[2022-11-06 16:12] LABS: Fungitell Qualitative Indeterminate (Negative); Fungitell Quantitative Value 78 pg/mL (<60 pg/mL)
== END 2022-11-04 02:45 | disposition home or self-care (01) ==
PROVIDERS: PCP Family Medicine; Visit Provider Student in an Organized Health Care Education/Training Program
DX: R91.8 Other nonspecific abnormal finding of lung field (principal)
CPT/HCPCS: 36415; 87305; 87449; 87385

== ENCOUNTER 2022-11-05 02:38 | Outpatient (CLI) | payer MEDICARE, SELFPAY ==
[2022-11-05] MEDS: Albuterol HFA 18 GM 200 PUFF INH IH (16:34)
[2022-11-05] MEDS: Inhaler, Assist Device 1 EACH MC (16:35)
--- NOTE | 2022-11-06 12:25 | W.PFT ---
Date of service: 11/05/22 Time of Service: 15:11 Pulmonary Function Test Result Requesting Provider Yobany Indications: Lung Mass Interpretation Spirometry: There is moderate airflow limitation. There is no significant bronchodilator response. Lung Volumes: There is air trapping Diffusion Capacity: The diffusion is diminished Airway Pressure: There is increased airways resistance. Impression Moderate airflow obstruction with air trapping and a decreased diffusion, consistent with COPD with emphysema. Clinical Correlation therefore is recommended.
== END 2022-11-05 02:39 | disposition home or self-care (01) ==
LOC: RT 02:38
PROVIDERS: PCP Family Medicine; Visit Provider Student in an Organized Health Care Education/Training Program
DX: R91.8 Other nonspecific abnormal finding of lung field (principal)
CPT/HCPCS: 94060; 94726; 94729

== ENCOUNTER 2022-11-13 01:50 | Outpatient (CLI) | payer MEDICARE, SELFPAY ==
[2022-11-13] MEDS: Normal Saline Flush 10 ML SYR IVP (09:10)
--- NOTE | 2022-11-13 09:45 | DI.MRI_ITS ---
Exam(s) MR BRAIN WO/W EXAM: MR BRAIN WO/W CLINICAL HISTORY: ?lung ca,assess for mets,mas lung,r91.8. TECHNIQUE: Multiplanar multisequence MRI of the brain was performed. CONTRAST MATERIAL: IV Contrast: 11 ML of Dotarem contrast administered. COMPARISON: CT CT BRAIN NECK CTA from 10/28/2022 FINDINGS: VENTRICLES AND EXTRA AXIAL SPACES: Normal in size and morphology for the patient's age. HEMORRHAGE: None. CEREBRAL PARENCHYMA: No focus of restricted diffusion to suggest acute infarct. No space-occupying le jana identified. Mild atrophy and mild white matter changes of small vessel disease. MIDLINE SHIFT: None. BRAINSTEM/CEREBELLUM: Normal. CALVARIUM: Normal. ENHANCEMENT: No suspicious enhancement identified. VISUALIZED PARANASAL SINUSES/MASTOIDS: Opacification of the left maxillary sinus and mucosal thickeni ng of the maxillary sinus. OTHER FINDINGS: None. IMPRESSION: No evidence of metastatic disease. Mild white matter changes of small vessel disease. DATA REPOSITORY:
== END 2022-11-13 02:10 ==
LOC: DI 01:50
PROVIDERS: PCP Family Medicine; Visit Provider Student in an Organized Health Care Education/Training Program
DX: R91.8 Other nonspecific abnormal finding of lung field (principal)
CPT/HCPCS: 70553

== ENCOUNTER 2022-12-12 02:09 | Outpatient (CLI) | payer MEDICARE, SELFPAY ==
--- NOTE | 2022-12-12 | DI.MRI_ITS ---
Exam(s) MR ABDOMEN WO/W EXAM: MR ABDOMEN WO/W CLINICAL HISTORY: H/O LUNG CA,F/U PET ? HEPATIC METS,R93.2,C34.02,C78.7 TECHNIQUE: Multiplanar multisequence MRI was performed with both pre and post contrast infused seque nces. Contrast injected sequences were performed following IV injection of 10 cc of Dotarem. FINDINGS: VISUALIZED LUNG BASES: There is infiltrate in the right lung base posterior basal segment. There is no ascites evident. LIVER: Multiple 4 small foci signal abnormality on diffusion imaging noted in the liver. Largest is in the right hepatic lobe and measures 8-9 mm. These lesions are mildly hyperintense on T2 sequences . These exhibit early arterial phase ring enhancement following contrast injection. Somewhat less e vident on the later post injected sequences. BILIARY: There is no obvious gallbladder pathology. The CBD is not dilated. PANCREAS: There is no evidence of pancreatic mass nor dilatation of the pancreatic duct. SPLEEN: Spleen is not enlarged and there are no intrasplenic lesions.Splenic and portal veins are pat ent ADRENALS: There are no significant adrenal masses. KIDNEYS: No solid renal masses. No hydronephrosis.Tiny benign 3 millimeter cyst noted in the lateral cortex of the left kidney. No hydronephrosis. No perinephric fluid. ABDOMINAL AORTA: Not enlarged and there is no significant para-aortic adenopathy. ANTERIOR ABDOMINAL WALL/GI: There is no evidence of significant anterior abdominal wall hernia in the field of view of this study.Is no evidence of obvious bowel obstruction. OSSEOUS: There are no lytic osseous lesions in the field of view of this study. IMPRESSION: 1. Multiple small sub cm early enhancing lesions in the liver, suspicious for small metastatic lesion s. 2. No adrenal masses. 3. Tiny benign cyst in the lateral cortex of the left kidney. DATA REPOSITORY:
[2022-12-12] MEDS: Gadoterate meglumine 20 ML VIAL IVP (10:16)
== END 2022-12-12 02:29 ==
LOC: DI 02:09
PROVIDERS: PCP Family Medicine; Visit Provider Internal Medicine Medical Oncology
DX: R93.2 Abnormal findings on diagnostic imaging of liver and biliary tract (principal); C34.02 Malignant neoplasm of left main bronchus; R91.8 Other nonspecific abnormal finding of lung field; K76.89 Other specified diseases of liver; N28.1 Cyst of kidney, acquired; C78.7 Secondary malignant neoplasm of liver and intrahepatic bile duct
CPT/HCPCS: 74183

== ENCOUNTER 2022-12-16 01:53 | Outpatient (CLI) | payer MEDICARE, SELFPAY ==
[2022-12-16 10:53] LABS: Absolute Basophil Count 0.03 10^3/uL (0.0-0.2); HCT 37.8 % (36.0-46.0); HGB 12.5 g/dL (11.2-15.7); MCHC 33.1 % (32.0-36.0); MCV 91 fL (80-95); MPV 8.2 fL (8.0-11.0); Platelet Count 144 10^3/uL (130-400); RBC 4.17 10^6/uL (3.93-5.22); RDW-SD 39.6 fL
[2022-12-16 11:07] LABS: ALT 36 U/L (14-59); AST 18 U/L (15-37); Albumin 3.1 g/dL (3.4-5.0); Alkaline Phosphatase 101 U/L (46-116); Anion Gap 5.1 mmol/L (3-11); BUN 18 mg/dL (7-18); Bilirubin, Total 0.2 mg/dL (0.2-1.0); CO2 28.9 mmol/L (21.0-32.0); CREATININE 0.8 mg/dL (0.55-1.02); Calcium 9.2 mg/dL (8.5-10.1); Chloride 104 mmol/L (98-107); Estimated GFR 78.24 (mL/min/1.73m2); Glucose 97 mg/dL (74-106); Magnesium 2.2 mg/dL (1.8-2.4); Potassium 3.9 mmol/L (3.5-5.1); Sodium 138 mmol/L (136-145); Total Protein 6.9 g/dL (6.4-8.2)
[2022-12-16 11:11] LABS: Absolute Neutrophil Count 0.22 10^3/uL (1.2-6.7)
[2022-12-16 11:12] LABS: Absolute Lymphocyte Count 1.22 10^3/uL (1.2-3.4); Atypical Lymphocytes % 17; Diff Comment Manual Differential; RBC Morphology Normal; WBC 1.67 10^3/uL (4.4-10.8)
== END 2022-12-16 01:54 | disposition home or self-care (01) ==
LOC: LBO 01:53
PROVIDERS: PCP Family Medicine; Visit Provider Internal Medicine Medical Oncology
DX: C34.02 Malignant neoplasm of left main bronchus (principal)
CPT/HCPCS: 36415; 80053; 83735; 85025

== ENCOUNTER 2022-12-23 02:22 | Outpatient (CLI) | payer MEDICARE, SELFPAY ==
[2022-12-23 07:54] LABS: Absolute Basophil Count 0.05 10^3/uL (0.0-0.2); Absolute Eosinophil Count 0.01 10^3/uL (0.0-0.7); Absolute Lymphocyte Count 1.04 10^3/uL (1.2-3.4); Absolute Monocyte Count 0.59 10^3/uL (0.1-0.8); Absolute Neutrophil Count 2.98 10^3/uL (1.2-6.7); Eosinophils % 0.2; HGB 12.6 g/dL (11.2-15.7); Immature Grans % 2.1; Lymphocytes % 21.8; MCH 30.4 pg (27.0-33.0); MCHC 33.2 % (32.0-36.0); MCV 92 fL (80-95); MPV 7.8 fL (8.0-11.0); Monocytes % 12.4; Neutrophils % 62.5; Platelet Count 398 10^3/uL (130-400); RBC 4.14 10^6/uL (3.93-5.22); RDW 13.2 % (11.7-14.6); WBC 4.77 10^3/uL (4.4-10.8)
[2022-12-23 08:03] LABS: Magnesium 2.3 mg/dL (1.8-2.4)
[2022-12-23 08:36] LABS: ALT 26 U/L (14-59); AST 20 U/L (15-37); Albumin 3.3 g/dL (3.4-5.0); Alkaline Phosphatase 91 U/L (46-116); Anion Gap 9.6 mmol/L (3-11); BUN 18 mg/dL (7-18); Bilirubin, Total 0.2 mg/dL (0.2-1.0); CO2 27.4 mmol/L (21.0-32.0); CREATININE 0.8 mg/dL (0.55-1.02); Calcium 9.4 mg/dL (8.5-10.1); Chloride 107 mmol/L (98-107); Estimated GFR 78.24 (mL/min/1.73m2); Glucose 96 mg/dL (74-106); Sodium 144 mmol/L (136-145); Total Protein 7.1 g/dL (6.4-8.2)
[2022-12-23 10:38] LABS: FREE T4 1.09 ng/dL (0.76-1.46); TSH 1.23 uIU/mL (0.36-3.74)
== END 2022-12-23 02:23 | disposition home or self-care (01) ==
LOC: LBO 02:22
PROVIDERS: Nurse Practitioner Family; PCP Family Medicine; Visit Provider Internal Medicine Medical Oncology
DX: C34.02 Malignant neoplasm of left main bronchus (principal); Z79.899 Other long term (current) drug therapy
CPT/HCPCS: 36415; 80053; 83735; 84439; 84443; 85025

== ENCOUNTER 2023-01-06 02:21 | Outpatient (CLI) | payer MEDICARE, SELFPAY ==
--- NOTE | 2023-01-06 | DI.CT_ITS ---
Exam(s) CT CHEST/ABD/PEL W EXAM: CT CHEST/ABD/PEL W CLINICAL HISTORY: LT LUNG CA,C34.02,METS TO LIVER,C78.7,S/P THERAPY, TECHNIQUE: Imaging Protocol: Axial computed tomography images with coronal and sagittal reformatted images were created and reviewed CONTRAST MATERIAL: Intravenous: Omnipaque 350 contrast volume:100 mL Oral: Yes COMPARISON: CT UPPER ABD WITH CONTRAST (P) from 09/30/[address] CHEST WO from 12/13/[address] CHEST W from 10/28/[address] BRAIN NECK CTA from 10/28/2022 MR MR ABDOMEN WO/W from 12/12/2022 FINDINGS: CHEST: Tracheobronchial tree: Patent where visualized. Pulmonary parenchyma: Centrilobular pulmonary emphysema. The left hilar mass has shown significant d ecrease in size. Soft tissue in the region measures approximately 2.4 cm. Visualized thyroid gland: Unremarkable. Mediastinum and Malika: No dominant adenopathy or fluid collection. The esophagus is unremarkable. Pleura: No effusion or pneumothorax. Heart: The heart is not dilated. Moderate coronary artery calcification is present. No pericardial ef fusion. Pulmonary arteries: No pulmonary emboli are identified. There is persistent narrowing of a left uppe r lobe pulmonary artery branch secondary to the hilar mass. Aorta: Thoracic aorta non-dilated. Atherosclerosis. No evidence of dissection. Lymph nodes: Within normal limits. Soft tissues: Unremarkable. Bones:Within normal limits for the patient's age. No aggressive osseous lesions. ABDOMEN: Liver: Normal density. The hepatic masses are best visualized on the arterial images. There is a 0.8 cm enhancing nodule in the posterior segment of the right lobe. The masses are best appreciated on th e MRI of the abdomen from 12/12/2022. Portal, Superior Mesenteric, and Splenic Veins: Unremarkable. Gallbladder and Biliary Tract: No radiodense calculus or dilation. Pancreas: Normal density, no abnormal calcifications or inflammatory process. Spleen: Normal. Adrenals: No masses seen. Kidneys: Normal size, contour and axis. No radiodense stones or obstructive uropathy. No masses seen. Abdominal Aorta: Abdominal portion non-dilated. Atherosclerosis. Bowel: No obstruction or bowel wall thickening. There is stool seen throughout the colon which may re present constipation. There is a normal appendix visualized. Peritoneal Cavity: No ascites, collection or mesenteric inflammatory response. No free air. Lymph Nodes: Within normal limits. Bones: Within normal limits for the patient's age. No aggressive osseous lesions are present. Soft Tissues: Unremarkable. PELVIS: Bladder: Symmetric distention, no gross wall thickening. Reproductive Organs: Unremarkable as visualized. Lymph Nodes: Within normal limits. Bones: Within normal limits. IMPRESSION: 1. Significant decrease in size of the left hilar mass since the prior examination. Maximum measureme nt obtained is 2.4 cm. There is persistent narrowing of a left upper lobe pulmonary artery branch. 2. No evidence of a pulmonary embolus, thoracic aortic dissection or aneurysm. 3. The hepatic masses are less well visualized on the current examination when compared to the MRI of the abdomen from 12/12/2022. Faintly enhancing nodules are seen on the arterial images. The largest id entifiable 1 measures [address] scan of the chest. RADIATION DOSE DELIVERED: 1,119.74mGy.cm Total DLP DATA REPOSITORY: All CT scans at this facility are submitted to the National Radiology Data Registry (NRDR) Dose Index Registry (DIR) with the [employer] (A[employer]). RADIATION OPTIMIZATION: All CT scans at this facility use at least one of these dose optimization te chniques: automated exposure control; mA and/or kV adjustment per patient size (includes targeted exa ms where dose is matched to clinical indication); or iterative reconstruction.
[2023-01-06] MEDS: Barium Sulfate 2% W/V-Berry Smoothie 450 ML BTL PO (08:31)
[2023-01-06] MEDS: Omnipaque 350 MG/ML 500 ML BTL-Imaging package IJ (10:22)
[2023-01-06] MEDS: Normal Saline - Diluent 50 ML VIAL IJ (10:23)
== END 2023-01-06 02:41 ==
LOC: DI 02:24
PROVIDERS: PCP Family Medicine; Visit Provider Nurse Practitioner Family
DX: C78.7 Secondary malignant neoplasm of liver and intrahepatic bile duct (principal); C34.02 Malignant neoplasm of left main bronchus; J44.9 Chronic obstructive pulmonary disease, unspecified
CPT/HCPCS: 74177; 71260

== ENCOUNTER 2023-01-13 03:13 | Outpatient (CLI) | payer MEDICARE, SELFPAY ==
[2023-01-13 08:03] LABS: HCT 37.3 % (36.0-46.0); HGB 12.3 g/dL (11.2-15.7); MCH 29.9 pg (27.0-33.0); MCV 91 fL (80-95); MPV 8.5 fL (8.0-11.0); Platelet Count 206 10^3/uL (130-400); RBC 4.11 10^6/uL (3.93-5.22); RDW 14.7 % (11.7-14.6); WBC 3.84 10^3/uL (4.4-10.8)
[2023-01-13 08:16] LABS: ALT 25 U/L (14-59); AST 19 U/L (15-37); Albumin 3.3 g/dL (3.4-5.0); Alkaline Phosphatase 72 U/L (46-116); Anion Gap 6.2 mmol/L (3-11); BUN 23 mg/dL (7-18); Bilirubin, Total 0.3 mg/dL (0.2-1.0); CO2 28.8 mmol/L (21.0-32.0); CREATININE 0.8 mg/dL (0.55-1.02); Calcium 9.2 mg/dL (8.5-10.1); Chloride 103 mmol/L (98-107); Estimated GFR 78.24 (mL/min/1.73m2); Glucose 85 mg/dL (74-106); Potassium 3.7 mmol/L (3.5-5.1); Sodium 138 mmol/L (136-145)
[2023-01-13 08:47] LABS: Absolute Basophil Count 0.04 10^3/uL (0.0-0.2); Absolute Lymphocyte Count 1.42 10^3/uL (1.2-3.4); Absolute Neutrophil Count 1.31 10^3/uL (1.2-6.7); Atypical Lymphocytes % 17; Metamyelocytes % 1; Myelocytes % 1
[2023-01-13 08:48] LABS: Diff Comment Manual Differential; RBC Morphology Normal
== END 2023-01-13 03:14 | disposition home or self-care (01) ==
LOC: LBO 03:13
PROVIDERS: PCP Family Medicine; Visit Provider Internal Medicine Medical Oncology
DX: C34.02 Malignant neoplasm of left main bronchus (principal)
CPT/HCPCS: 36415; 80053; 83735; 85025

== ENCOUNTER 2023-01-17 16:19 | Inpatient (IN) | payer MEDICARE, SELFPAY ==
[2023-01-17] VITALS (53 sets, daily range): BP systolic 96–143; BP diastolic 44–107; PULSE 78–109; RESP 15–29; TEMP 37.3; O2SAT 89–97
--- NOTE | 2023-01-17 16:45 | RT.EKG_ITS ---
APPROVED REPORT Exam: Resting ECG Reason for Exam: weakness Patient Location: E HR:102 bpm ECG Measurements Heart Rate 102 AXIS RI 140 P 61 QRSd 94 QRS 72 QT 319 T -7 QTc 415 Conclusion Sinus tachycardia...rate> 99
--- NOTE | 2023-01-17 16:45 | DI.CT_ITS ---
Exam(s) CT CHEST PE CTA EXAM: CT CHEST PE CTA CLINICAL HISTORY: small cell lung ca, febrile, hypoxic. TECHNIQUE: Imaging Protocol: Axial CT angiography was performed with multi-slice acquisition and mu lti-planar reconstructions as well as axial, coronal and sagittal MIP reconstructions. CONTRAST MATERIAL: Intravenous: Omnipaque 350 Contrast volume:70 mL COMPARISON: CT CT CHEST/ABD/PEL W from 01/06/2023 FINDINGS: Pulmonary Arteries: No evidence of filling defect to suggest pulmonary emboli. Tracheobronchial tree: Some bronchial thickening present. Mediastinum and Malika: No dominant adenopathy or fluid collection. Pulmonary parenchyma: Stable size of left superior hilar mass. Underlying emphysematous and fibrotic changes. New infiltrates seen in both lower lobes as well as mild infiltrates in right upper lobe. Pleura: No pneumothorax. Trace right pleural effusion. Heart: The heart is not dilated. coronary artery calcifications are seen. Aorta: Thoracic aorta non-dilated. No aneurysm. No dissection. Upper abdomen: Unremarkable. Bones: Degenerative changes. Tubes, Catheters, and Lines: None IMPRESSION: No evidence of pulmonary embolism. New infiltrates in lower lobes. Mild right upper lobe infiltrate. RADIATION DOSE DELIVERED: 304.17mGy.cm Total DLP DATA REPOSITORY: All CT scans at this facility are submitted to the National Radiology Data Registry (NRDR) Dose Index Registry (DIR) with the [employer] (ACR). RADIATION OPTIMIZATION: All CT scans at this facility use at least one of these dose optimization te chniques: automated exposure control; mA and/or kV adjustment per patient size (includes targeted exa ms where dose is matched to clinical indication); or iterative reconstruction.
[2023-01-17] MEDS: Normal Saline 1,000 ML 1000 ML IV (16:56)
[2023-01-17 17:04] LABS: Lactate 0.5 mmol/L (0.6-1.4)
[2023-01-17 17:08] LABS: Abs Immature Grans 0.23 10^3/uL (0.0-0.06); HCT 32.9 % (36.0-46.0); HGB 11.4 g/dL (11.2-15.7); MCH 30.7 pg (27.0-33.0); MCHC 34.7 % (32.0-36.0); MCV 89 fL (80-95); MPV 8.6 fL (8.0-11.0); Platelet Count 305 10^3/uL (130-400); RBC 3.71 10^6/uL (3.93-5.22); RDW 14.8 % (11.7-14.6); RDW-SD 47.9 fL; WBC 12.22 10^3/uL (4.4-10.8)
[2023-01-17] MEDS: Acetaminophen 325 MG TAB 650 MG PO (17:13)
[2023-01-17 17:18] LABS: Absolute Lymphocyte Count 1.47 10^3/uL (1.2-3.4); Absolute Monocyte Count 0.37 10^3/uL (0.1-0.8); Absolute Neutrophil Count 10.39 10^3/uL (1.2-6.7); Atypical Lymphocytes % 1; Diff Comment Manual Differential; RBC Morphology Normal
[2023-01-17 17:22] LABS: Bilirubin Negative (Negative); Blood Trace-intact (Negative); Clarity Clear (Clear); Glucose Negative (Negative); Ketones Negative (Negative); Leukocyte Esterase Negative (Negative); Nitrite Negative (Negative); pH 7.5 (5-8)
[2023-01-17 17:23] LABS: ALT 36 U/L (14-59); AST 19 U/L (15-37); Albumin 2.5 g/dL (3.4-5.0); Alkaline Phosphatase 74 U/L (46-116); Anion Gap 6.7 mmol/L (3-11); BUN 18 mg/dL (7-18); Bilirubin, Total 0.8 mg/dL (0.2-1.0); CO2 24.3 mmol/L (21.0-32.0); CREATININE 0.6 mg/dL (0.55-1.02); Calcium 8.1 mg/dL (8.5-10.1); Chloride 102 mmol/L (98-107); Estimated GFR 95.31 (mL/min/1.73m2); Glucose 104 mg/dL (74-106); Magnesium 1.7 mg/dL (1.8-2.4); Potassium 3.4 mmol/L (3.5-5.1); Sodium 133 mmol/L (136-145); Total Protein 5.5 g/dL (6.4-8.2)
[2023-01-17 17:27] LABS: Bacteria Negative HPF (Negative); C & S Indicated? No; Casts Negative LPF (Negative); Crystals Negative HPF (Negative); Epithelial Cells Rare HPF (Negative); Mucus Negative (Negative); RBC 0-2 HPF (0-2); WBC 0-2 HPF (0-5)
[2023-01-17] MEDS: Normal Saline - Diluent 50 ML VIAL IJ (18:03)
[2023-01-17] MEDS: Omnipaque 350 MG/ML 100 ML BTL IJ (18:04)
[2023-01-17 18:26] LABS: COVID-19 PCR Negative (Negative); Influenza A PCR Negative (Negative); Influenza B PCR Negative (Negative); RSV PCR Negative (Negative)
--- NOTE | 2023-01-17 18:43 | DI.VRAD_ITS ---
PROCEDURE INFORMATION: Exam: CTA Chest With Contrast Exam date and time: 01/17/2023 6:01 PM Age: 72 years old Clinical indication: Febrile, hypoxic, Small cell lung CA, liver metastases TECHNIQUE: Imaging protocol: Computed tomographic angiography of the chest with contrast. 3D rendering (Not supervised by radiologist): MIP and/or 3D reconstructed images were created by the technologist. Contrast material: OMNIPAQUE 350; Contrast volume: 70 ml; Contrast route: INTRAVENOUS (IV); COMPARISON: CT CHEST/ABD/PEL W 01/06/2023 10:22 AM FINDINGS: Pulmonary arteries: No evidence of pulmonary embolism. Aorta: Normal caliber thoracic aorta without dissection or aneurysm. Lungs: Compared to the prior CT chest dated 01/06/2023, interval new scattered patches of infiltrate within each inferior lung. Compared to 01/06/2023 once again noted is the stable small residual soft tissue density / mass in the left suprahilar region. Pleural spaces: No pneumothorax. New trace right pleural fluid collection. No left pleural fluid. Heart: No right ventricular strain. No pericardial effusion. Normal heart size. Coronary artery calcification. Lymph nodes: No enlarged lymph nodes. Bones/joints: Spinal degenerative changes. Soft tissues: Unremarkable. IMPRESSION: 1. No evidence of pulmonary embolism. 2. Compared to the prior CT chest dated 01/06/2023, interval new scattered patches of infiltrate within each inferior lung. 3. New trace right pleural fluid collection. No left pleural fluid. 4. Compared to 01/06/2023 once again noted is the stable small residual soft tissue density / mass in the left suprahilar region. Dictated and Authenticated by: Primo Chavez MD. Ordering:JENNIFER Gerard MD
[2023-01-17 18:56] LABS: Source Nasopharynx
[2023-01-17 19:06] LABS: Troponin I < 50 ng/L (<or=60)
--- NOTE | 2023-01-17 19:21 | NUR.NOTE ---
entered in error Nursing Note:
[2023-01-17] MEDS: levoFLOXacin 750 MG/150 ML BAG 100 MG IVPB (20:13)
[2023-01-17] MEDS: Normal Saline 1,000 ML 125 ML IV (20:15)
--- NOTE | 2023-01-17 20:21 | W.PM.HP.N ---
Date of service: 01/17/23 Time of Service: 20:21 Assessment and Plan Assessment and plan (1) Acute hypoxemic respiratory failure: Start date: 01/17/23 Status: Acute Assessment and plan: Patient usually is on room air at home but presented with respiratory symptoms and hypoxemia. She continues to require oxygen supplementation with pulse oximeter dropping below 90% when patient is conversing and on 2 L/min per nasal cannula oxygen therapy. Aggressive treatment of pneumonia patient does not appear to have any wheeze or need for treating bronchospasm more aggressively at this time. We will avoid steroids for now. Patient is a full code. (2) COPD (chronic obstructive pulmonary disease): Status: Chronic Assessment and plan: Patient is acute with pneumonia and requiring oxygen supplementation which may not be needed and possibly wean before discharge. It is possible the patient is lung cancer has brought her to the new stabel and chronic baseline stability where O2 supplementation may be needed chronically once she is stable for discharge. This can be assessed prior to discharge. (3) Pneumonia: Start date: 01/17/23 Status: Acute Assessment and plan: Bibasilar by CT with patient to be treated with Levaquin and cardiac monitoring. Hopefully she can wean off oxygen prior to discharge and if not this may be her new chronic need which should be documented for discharge. She may have progressive disease with her small cell lung cancer. (4) Hyponatremia: Start date: 01/17/23 Status: Acute Assessment and plan: Replete with IV normal saline and trend labs. (5) Hypomagnesemia: Start date: 01/17/23 Status: Acute Assessment and plan: Replete with IV magnesium sulfate and follow-up labs at least daily. (6) Small cell lung cancer: Status: Chronic Assessment and plan: Patient is just starting chemotherapy and does have a history of COPD. Her chemotherapy may be compromised her minimal global for infections. Continue follow-up with oncology. Patient is a full code. History of Present Illness History of Present Illness Chief Complaint: Dyspnea with lightheadedness and cough for 3 days Narrative: This is a 72-year-old female patient presented to the ED with shortness of breath and lightheadedness as well as coughing for 3 days prior to admission. She does have small cell carcinoma of the lung and is receiving chemotherapy with the last chemotherapy 2 days prior to admission. Currently patient has COPD without oxygen needs but was hypoxic upon presentation. CTA showed no PE but bilateral infiltrates with pneumonia. She has not not had any production of sputum with her cough and has had no hemoptysis. She has no GI complaints. She does not have any chest pain or cardiovascular complaints. No focalized neurological complaints. Patient was admitted for IV Levaquin to treat her pneumonia and for oxygen supplementation because of her increased needs with her lung cancer as well as COPD now with pneumonia. She may need long-term oxygen before discharge. She will need to be at her baseline with chronic disease to qualify. She is a full code. Review of Systems Narrative: 13 point review of systems otherwise unrevealing or stable. 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, liver and spine mets Benign paroxysmal positional vertigo of right ear (Acute) Blood in right ear canal (Acute) Hyperplastic colon polyp (Acute) Migraine headache (Chronic 12/25/11) Tobacco use disorder (Chronic 12/23/12) Tubular adenoma of colon (Chronic 04/03/16) Asymmetrical sensorineural hearing loss (Acute) Impairment of speech discrimination (Acute) Medical History 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 Repeat in 5 years. 02/[address] Chivo Nuñez 04/03/2016 tubular adenomas, Dr. Chivo Nuñez, repeat 5 yrs Trigger Finger release 09/2013 Family History Mother Personal history of malignant neoplasm BREAST Father Essential hypertension Personal history of malignant neoplasm LUNG/MELANOMA Heart disease Hyperlipidemia Sister No problems noted. Grandfather Personal history of malignant neoplasm STOMACH Grandfather Personal history of malignant neoplasm Grandmother No problems noted. Grandmother Personal history of malignant neoplasm Social History Smoking/Tobacco Use Status: Current every day Tobacco Type: cigarettes Years smoked: 55 Smoking risk assessment performed?: Yes Alcohol Intake: never Drug use: Never Substance use type: does not use Current gender identity: female Do you feel safe at home: Yes Do you feel safe in your relationship?: Yes Additional Social history: has alzheimers Female Reproductive History Menstrual Menopause type: natural History History 2 Para 2 Hx # Term Pregnancies Multiple births Hx # Pregnancies Ectopic pregnancies AB induced Hx Number of Living Children AB spontaneous Meds Allergies and Home Medications Allergies Allergy/AdvReac Type Severity Reaction Status Date / Time isotretinoin [From Accutane] Allergy Intermediate Hives Verified 12/30/22 15:14 latex Allergy Intermediate Skin Rash Verified 12/30/22 15:14 Tetracyclines Allergy Intermediate Hives Verified 12/30/22 15:14 minocycline Allergy Verified 12/30/22 15:14 Home Medications Medication Instructions Recorded Confirmed Type cholecalciferol (vitamin D3) 25 2,000 units PO DAILY 03/12/14 12/30/22 History mcg (1,000 unit) tablet sertraline 50 mg tablet 50 mg PO DAILY 03/12/14 12/30/22 History sumatriptan succinate 100 mg 100 mg PO PRN PRN 03/12/14 12/30/22 History tablet (Imitrex) Proactive Cream 1 ea topical BID 07/03/17 12/30/22 History rosuvastatin 20 mg tablet 20 mg PO DAILY 01/25/19 12/30/22 History riboflavin (vitamin B2) 400 mg 400 mg PO DAILY 08/09/20 12/30/22 History tablet meclizine 12.5 mg tablet 12.5 mg PO BID-QID PRN dizziness 10/28/22 12/30/22 Rx #20 tabs albuterol sulfate 90 mcg/actuation 2 puff inhalation Q6H PRN 12/30/22 12/30/22 Rx aerosol inhaler shortness of breath or wheezing #8.5 grams fluticasone fur. 100 mcg-umeclid 1 inh inhalation DAILY #60 ea 12/30/22 12/30/22 Rx 62.5 mcg-vilant 25 mcg inhalat.powder (Trelegy Ellipta) Exam Narrative Exam Narrative: General: Patient appears appropriate for age wearing a hat in bed trying to cover up her hair loss with chemotherapy, she is appropriate and smiling at times though she is hard of hearing. She is alert and oriented to person, place and time. She is in no acute distress. HEENT: Normocephalic with patient wearing hat, eyes with pupils equal react to light symmetrically, extraocular movement intact and sclera anicteric. Oropharynx with slightly dry mucosa. Neck: Supple without JVD. Back: Stooped posture without CVA tenderness. Lungs: Decreased aeration but fair overall lung clemens with no increase expiratory phase or wheeze, no inspiratory rales or rhonchi. There is decreased aeration at the bases. Breast: Exam deferred. Heart: Regular rate and rhythm with no appreciable murmur or gallop. Abdomen: Obese contour, soft and nontender to palpation with no palpable hepatosplenomegaly. Genitalia/rectal: Exam deferred. Extremities: Without clubbing, cyanosis or grossly pitting edema. Good capillary refill. Skin: Normal color, warm and dry. Neuro: Cranial nerves II through XII gross intact, no focalizing motor deficits and no tremor. Psych: Normal affect and mood. Remote and recent memory appear to be grossly intact. No abnormal thought processes. Results Imaging Imaging Studies: Exam: CTA Chest With Contrast Exam date and time: 01/17/2023 6:01 PM Age: 72 years old Clinical indication: Febrile, hypoxic, Small cell lung CA, liver metastases TECHNIQUE: Imaging protocol: Computed tomographic angiography of the chest with contrast. 3D rendering (Not supervised by radiologist): MIP and/or 3D reconstructed images were created by the technologist. Contrast material: OMNIPAQUE 350; Contrast volume: 70 ml; Contrast route: INTRAVENOUS (IV);? COMPARISON: CT CHEST/ABD/PEL W 01/06/2023 10:22 AM FINDINGS: Pulmonary arteries: No evidence of pulmonary embolism. Aorta: Normal caliber thoracic aorta without dissection or aneurysm. Lungs: Compared to the prior CT chest dated 01/06/2023, interval new scattered patches of infiltrate within each inferior lung. Compared to 01/06/2023 once again noted is the stable small residual soft tissue density / mass in the left suprahilar region. Pleural spaces: No pneumothorax. New trace right pleural fluid collection. No left pleural fluid. Heart: No right ventricular strain. No pericardial effusion. Normal heart size. Coronary artery calcification. Lymph nodes: No enlarged lymph nodes. Bones/joints: Spinal degenerative changes. Soft tissues: Unremarkable. IMPRESSION: 1. ? No evidence of pulmonary embolism. 2. ? Compared to the prior CT chest dated 01/06/2023, interval new scattered patches of infiltrate within each inferior lung. 3. ? New trace right pleural fluid collection. No left pleural fluid. 4. ? Compared to 01/06/2023 once again noted is the stable small residual soft tissue density / mass in the left suprahilar region. Labs 01/17/23 17:00 01/17/23 17:00 Labs: Laboratory Results - last 24 hr 01/17/23 01/17/23 01/17/23 17:00 17:00 17:00 WBC 12.22 H RBC 3.71 L Hgb 11.4 Hct 32.9 L MCV 89 MCH 30.7 MCHC 34.7 RDW 14.8 H Plt Count 305 MPV 8.6 Immature Gran % 0.0 Neutrophils % 85.0 Lymphocytes % 11.0 Atypical Lymphs % 1 Monocytes % 3.0 Eosinophils % 0.0 Basophils % 0.0 Nucleated RBC % 0.0 Absolute Neutrophils 10.39 H Absolute Lymphocytes 1.47 Absolute Monocytes 0.37 Absolute Eosinophils 0.00 Absolute Basophils 0.00 RBC Morphology Normal VBG Lactate 0.5 L Sodium 133 L Potassium 3.4 L Chloride 102 Carbon Dioxide 24.3 Anion Gap 6.7 BUN 18 Creatinine 0.6 Est GFR (CKD-EPI 2020) 95.31 Glucose 104 Calcium 8.1 L Magnesium 1.7 L Total Bilirubin 0.8 AST 19 ALT 36 Alkaline Phosphatase 74 Troponin I Total Protein 5.5 L Albumin 2.5 L Urine Color Urine Clarity Urine pH Ur Specific [place] Urine Protein Urine Ketones Urine Blood Urine Nitrite Urine Bilirubin Urine Urobilinogen Ur Leukocyte Esterase Urine RBC Urine WBC Ur Epithelial Cells Urine Crystals Urine Bacteria Urine Casts Urine Mucus Ur Culture Indicated? Urine Glucose COVID-19 Source SARS-CoV-2 (PCR) Influenza Type A (PCR) Influenza Type B (PCR) RSV (PCR) 01/17/23 01/17/23 01/17/23 17:00 17:17 17:35 WBC RBC Hgb Hct MCV MCH MCHC RDW Plt Count MPV Immature Gran % Neutrophils % Lymphocytes % Atypical Lymphs % Monocytes % Eosinophils % Basophils % Nucleated RBC % Absolute Neutrophils Absolute Lymphocytes Absolute Monocytes Absolute Eosinophils Absolute Basophils RBC Morphology VBG Lactate Sodium Potassium Chloride Carbon Dioxide Anion Gap BUN Creatinine Est GFR (CKD-EPI 2020) Glucose Calcium Magnesium Total Bilirubin AST ALT Alkaline Phosphatase Troponin I < 50 Total Protein Albumin Urine Color Yellow Urine Clarity Clear Urine pH 7.5 Ur Specific [place] 1.020 Urine Protein Negative Urine Ketones Negative Urine Blood Trace-intact H Urine Nitrite Negative Urine Bilirubin Negative Urine Urobilinogen 1.0 H Ur Leukocyte Esterase Negative Urine RBC 0-2 Urine WBC 0-2 Ur Epithelial Cells Rare Urine Crystals Negative Urine Bacteria Negative Urine Casts Negative Urine Mucus Negative Ur Culture Indicated? No Urine Glucose Negative COVID-19 Source Nasopharynx SARS-CoV-2 (PCR) Negative Influenza Type A (PCR) Negative Influenza Type B (PCR) Negative RSV (PCR) Negative Last Vital Signs Temp 37.3 C 01/17/23 16:24 Pulse 81 01/17/23 20:11 Resp 25 H 01/17/23 18:13 BP 96/44 L 01/17/23 20:11 Pulse Ox 94 01/17/23 20:12 Time Spent Time spent with Patient: >75 minutes Time was spent: preparing to see the patient(eg.review tests), obtaining and/or reviewing separately otained hiistory, ordering medications,tests, procedures, referring, communicating with other health interior plant caretaker, indepentently interpreting results and care coordination
[2023-01-17 20:25] LABS: BE (Venous) 2 mmol/L (-2-3); HCO3 (Venous) 26 mmol/L (23-28); O2 Sat (Venous) 69 %; TCO2 (Venous) 24 mmol/L (24-29); pCO2 (Venous) 39 mmHg (41-51); pH (Venous) 7.43 (7.31-7.41); pO2 (Venous) 35 mmHg
[2023-01-17 21:14] LABS: Troponin I < 50 ng/L (<or=60)
--- NOTE | 2023-01-17 23:43 | ED.GENADUL_ITS ---
Discharge Plan Disposition Patient Disposition: Admit to [facility] Condition: Serious Discharge Details Clinical Impression: Pneumonia, Small cell lung cancer, COPD (chronic obstructive pulmonary disease), Acute hypoxemic respiratory failure Admit Date/Time: 01/17/23 20:23 Admit Provider: Sujit Hoffmann Attending Provider: Sujit Hoffmann Primary Care Provider: Addie Franks ED Provider: Rajani Keene Discharge Data Discharge Date/Time-TO BE ENTERED AT DEPARTURE: 01/18/23 18:19 Medical Decision Making 72-year-old female presents with report of hypoxia and weakness CTA was ordered secondary to age and comorbidities, evidence of bilateral infiltrates, fluid negative We will start patient on Levaquin given allergies, no QTc prolongation on EKG Remains on oxygen supplementation, 1 L for acute respiratory failure and likely the presence of pneumonia We will admit to the hospital for observation Received 1 L of IV fluid hydration and Tylenol Patient with temperature of 101, leukocytosis 12, and pneumonia, meets sepsis criteria CODE STATUS full code HPI General Date/Time Provider Initiated Documentation: 01/17/23 16:23 . HPI Narrative: This 72-year-old female presents with report of shortness of breath, lightheadedness, coughing for the past 3 days. States her symptoms started on Friday night per patient. Received her last chemotherapy on Friday for small cell carcinoma, denies any additional new medications., Does state history of COPD but is not oxygen dependent and this does not feel like COPD to her. Denies any calf pain or swelling. Denies prior history of pulmonary embolism. Denies any hemoptysis. Related Data Home Medications Medication Instructions Recorded Confirmed cholecalciferol (vitamin D3) 25 2,000 units PO DAILY 03/12/14 01/18/23 mcg (1,000 unit) tablet sertraline 50 mg tablet 50 mg PO DAILY 03/12/14 01/18/23 sumatriptan succinate 100 mg 100 mg PO PRN PRN 03/12/14 01/18/23 tablet (Imitrex) Proactive Cream 1 ea topical BID 07/03/17 12/30/22 rosuvastatin 20 mg tablet 40 mg PO DAILY 01/25/19 01/18/23 riboflavin (vitamin B2) 400 mg 400 mg PO DAILY 08/09/20 01/18/23 tablet albuterol sulfate 90 mcg/actuation 2 puff inhalation Q6H PRN 12/30/22 01/18/23 aerosol inhaler shortness of breath or wheezing #8.5 grams fluticasone fur. 100 mcg-umeclid 1 inh inhalation DAILY #60 ea 12/30/22 01/18/23 62.5 mcg-vilant 25 mcg inhalat.powder (Trelegy Ellipta) aspirin 81 mg tablet,delayed 81 mg PO DAILY 01/18/23 01/18/23 release benzonatate 200 mg capsule 200 mg PO TID #30 caps 01/20/23 guaifenesin 600 mg tablet, 600 mg PO BID #30 tabs 01/20/23 extended release 12 hr (Mucus Relief ER) levofloxacin 750 mg tablet 750 mg PO DAILY #8 tabs 01/20/23 Previous Rx's Medication Instructions Recorded albuterol sulfate 90 mcg/actuation 2 puff inhalation Q6H PRN 12/30/22 aerosol inhaler shortness of breath or wheezing #8.5 grams fluticasone fur. 100 mcg-umeclid 1 inh inhalation DAILY #60 ea 12/30/22 62.5 mcg-vilant 25 mcg inhalat.powder (Trelegy Ellipta) benzonatate 200 mg capsule 200 mg PO TID #30 caps 01/20/23 guaifenesin 600 mg tablet, 600 mg PO BID #30 tabs 01/20/23 extended release 12 hr (Mucus Relief ER) levofloxacin 750 mg tablet 750 mg PO DAILY #8 tabs 01/20/23 Allergies Allergy/AdvReac Type Severity Reaction Status Date / Time isotretinoin [From Accutane] Allergy Intermediate Hives Verified 12/30/22 15:14 latex Allergy Intermediate Skin Rash Verified 12/30/22 15:14 Tetracyclines Allergy Intermediate Hives Verified 12/30/22 15:14 minocycline Allergy Verified 12/30/22 15:14 General Stated Complaint: GenMedical SADA: 3 PFSH All Active Problems (Updated 01/20/23 @ 17:17 by SONDRA Stevens) Discharge planning issues (Acute) DVT prophylaxis (Acute) Acute hypoxemic respiratory failure (Acute) Hypomagnesemia (Acute) Hyponatremia (Acute) Pneumonia (Acute) COPD (chronic obstructive pulmonary disease) (Chronic) 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, liver and spine mets Benign paroxysmal positional vertigo of right ear (Acute) Blood in right ear canal (Acute) Hyperplastic colon polyp (Acute) Migraine headache (Chronic 12/25/11) Tobacco use disorder (Chronic 12/23/12) Tubular adenoma of colon (Chronic 04/03/16) Asymmetrical sensorineural hearing loss (Acute) Impairment of speech discrimination (Acute) Medical History 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 Repeat in 5 years. 02/[address] Chivo Nuñez 04/03/2016 tubular adenomas, Dr. Chivo Nuñez, repeat 5 yrs Trigger Finger release 09/2013 Family History Mother Personal history of malignant neoplasm BREAST Father Essential hypertension Personal history of malignant neoplasm LUNG/MELANOMA Heart disease Hyperlipidemia Sister No problems noted. Grandfather Personal history of malignant neoplasm STOMACH Grandfather Personal history of malignant neoplasm Grandmother No problems noted. Grandmother Personal history of malignant neoplasm Social History Smoking/Tobacco Use Status: Current every day Tobacco Type: cigarettes Years smoked: 55 Smoking risk assessment performed?: Yes Alcohol Intake: never Drug use: Never Substance use type: does not use Current gender identity: female Do you feel safe at home: Yes Do you feel safe in your relationship?: Yes Additional Social history: has alzheimers Female Reproductive History Menstrual Menopause type: natural History History 2 Para 2 Hx # Term Pregnancies Multiple births Hx # Pregnancies Ectopic pregnancies AB induced Hx Number of Living Children AB spontaneous Exam Const General: ill appearing Orientation: alert and oriented x3 Eyes Pupils: PERRL Resp Effort & Inspection: tachypneic Auscultation: clear to auscultation bilaterally Cardio Rate: regular rate GI Inspection: normal to inspection Skin Other: pallor Neuro General: patient alert Extrem Other: distal pulses intact, no calf swelling Course Vital Signs Vital signs: Vital Signs Temperature 37.3 C 01/17/23 16:24 Pulse 100 H 01/17/23 16:24 Blood Pressure 135/69 01/17/23 16:24 Pulse Oximetry 89 L 01/17/23 16:24 Temperature 37.3 C 01/17/23 16:24 Temperature Source Oral 01/17/23 16:24 Pulse 87 01/17/23 21:21 Pulse 98 H 01/17/23 18:13 Respiratory Rate 25 H 01/17/23 18:13 Respiratory Effort Short of Breath 01/17/23 17:14 Respiratory Pattern Tachypnea 01/17/23 17:14 Blood Pressure 112/56 L 01/17/23 21:21 Blood Pressure Mean 67 01/17/23 21:21 Blood Pressure Position Sitting 01/17/23 16:24 Pulse Oximetry 95 01/17/23 21:21 Oxygen Delivery Method Room Air 01/17/23 16:24 Oxygen Flow Rate 0 01/17/23 16:24 Lab/Test Results Lab/Test Results: 01/17/23 19:00 Blood Blood Culture - Pending 01/17/23 18:37 Blood Blood Culture - Pending Laboratory Tests Range/Units 01/17/23 01/17/23 01/17/23 17:00 17:00 17:00 WBC (4.4-10.8) 10^3/uL 12.22 H RBC (3.93-5.22) 10^6/uL 3.71 L Hgb (11.2-15.7) g/dL 11.4 Hct (36.0-46.0) % 32.9 L MCV (80-95) fL 89 MCH (27.0-33.0) pg 30.7 MCHC (32.0-36.0) % 34.7 RDW (11.7-14.6) % 14.8 H Plt Count (130-400) 10^3/uL 305 MPV (8.0-11.0) fL 8.6 Immature Gran % 0.0 Neutrophils % 85.0 Lymphocytes % 11.0 Atypical Lymphs % 1 Monocytes % 3.0 Eosinophils % 0.0 Basophils % 0.0 Nucleated RBC % (0.0-0.3) % 0.0 Absolute Neutrophils (1.2-6.7) 10^3/uL 10.39 H Absolute Lymphocytes (1.2-3.4) 10^3/uL 1.47 Absolute Monocytes (0.1-0.8) 10^3/uL 0.37 Absolute Eosinophils (0.0-0.7) 10^3/uL 0.00 Absolute Basophils (0.0-0.2) 10^3/uL 0.00 RBC Morphology Normal VBG pH (7.31-7.41) VBG pCO2 (41-51) mmHg VBG pO2 mmHg VBG HCO3 (23-28) mmol/L VBG Total CO2 (24-29) mmol/L VBG O2 Saturation % VBG Base Excess (-2-3) mmol/L VBG Lactate (0.6-1.4) mmol/L 0.5 L Sodium (136-145) mmol/L 133 L Potassium (3.5-5.1) mmol/L 3.4 L Chloride (98-107) mmol/L 102 Carbon Dioxide (21.0-32.0) mmol/L 24.3 Anion Gap (3-11) mmol/L 6.7 BUN (7-18) mg/dL 18 Creatinine (0.55-1.02) mg/dL 0.6 Est GFR (CKD-EPI 2020) (mL/min/1.73m2) 95.31 Glucose (74-106) mg/dL 104 Calcium (8.5-10.1) mg/dL 8.1 L Magnesium (1.8-2.4) mg/dL 1.7 L Total Bilirubin (0.2-1.0) mg/dL 0.8 AST (15-37) U/L 19 ALT (14-59) U/L 36 Alkaline Phosphatase (46-116) U/L 74 Troponin I (<or=60) ng/L Total Protein (6.4-8.2) g/dL 5.5 L Albumin (3.4-5.0) g/dL 2.5 L Urine Color (Yellow) Urine Clarity (Clear) Urine pH (5-8) Ur Specific [place] (1.005-1.025) Urine Protein (Negative) mg/dL Urine Ketones (Negative) mg/dL Urine Blood (Negative) Urine Nitrite (Negative) Urine Bilirubin (Negative) Urine Urobilinogen (Up to 0.2) mg/dL Ur Leukocyte Esterase (Negative) Urine RBC (0-2) HPF Urine WBC (0-5) HPF Ur Epithelial Cells (Negative) HPF Urine Crystals (Negative) HPF Urine Bacteria (Negative) HPF Urine Casts (Negative) LPF Urine Mucus (Negative) Ur Culture Indicated? Urine Glucose (Negative) mg/dL COVID-19 Source SARS-CoV-2 (PCR) (Negative) Influenza Type A (PCR) (Negative) Influenza Type B (PCR) (Negative) RSV (PCR) (Negative) Range/Units 01/17/23 01/17/23 01/17/23 17:00 17:17 17:35 WBC (4.4-10.8) 10^3/uL RBC (3.93-5.22) 10^6/uL Hgb (11.2-15.7) g/dL Hct (36.0-46.0) % MCV (80-95) fL MCH (27.0-33.0) pg MCHC (32.0-36.0) % RDW (11.7-14.6) % Plt Count (130-400) 10^3/uL MPV (8.0-11.0) fL Immature Gran % Neutrophils % Lymphocytes % Atypical Lymphs % Monocytes % Eosinophils % Basophils % Nucleated RBC % (0.0-0.3) % Absolute Neutrophils (1.2-6.7) 10^3/uL Absolute Lymphocytes (1.2-3.4) 10^3/uL Absolute Monocytes (0.1-0.8) 10^3/uL Absolute Eosinophils (0.0-0.7) 10^3/uL Absolute Basophils (0.0-0.2) 10^3/uL RBC Morphology VBG pH (7.31-7.41) VBG pCO2 (41-51) mmHg VBG pO2 mmHg VBG HCO3 (23-28) mmol/L VBG Total CO2 (24-29) mmol/L VBG O2 Saturation % VBG Base Excess (-2-3) mmol/L VBG Lactate (0.6-1.4) mmol/L Sodium (136-145) mmol/L Potassium (3.5-5.1) mmol/L Chloride (98-107) mmol/L Carbon Dioxide (21.0-32.0) mmol/L Anion Gap (3-11) mmol/L BUN (7-18) mg/dL Creatinine (0.55-1.02) mg/dL Est GFR (CKD-EPI 2020) (mL/min/1.73m2) Glucose (74-106) mg/dL Calcium (8.5-10.1) mg/dL Magnesium (1.8-2.4) mg/dL Total Bilirubin (0.2-1.0) mg/dL AST (15-37) U/L ALT (14-59) U/L Alkaline Phosphatase (46-116) U/L Troponin I (<or=60) ng/L < 50 Total Protein (6.4-8.2) g/dL Albumin (3.4-5.0) g/dL Urine Color (Yellow) Yellow Urine Clarity (Clear) Clear Urine pH (5-8) 7.5 Ur Specific [place] (1.005-1.025) 1.020 Urine Protein (Negative) mg/dL Negative Urine Ketones (Negative) mg/dL Negative Urine Blood (Negative) Trace-intact H Urine Nitrite (Negative) Negative Urine Bilirubin (Negative) Negative Urine Urobilinogen (Up to 0.2) mg/dL 1.0 H Ur Leukocyte Esterase (Negative) Negative Urine RBC (0-2) HPF 0-2 Urine WBC (0-5) HPF 0-2 Ur Epithelial Cells (Negative) HPF Rare Urine Crystals (Negative) HPF Negative Urine Bacteria (Negative) HPF Negative Urine Casts (Negative) LPF Negative Urine Mucus (Negative) Negative Ur Culture Indicated? No Urine Glucose (Negative) mg/dL Negative COVID-19 Source Nasopharynx SARS-CoV-2 (PCR) (Negative) Negative Influenza Type A (PCR) (Negative) Negative Influenza Type B (PCR) (Negative) Negative RSV (PCR) (Negative) Negative Range/Units 01/17/23 01/17/23 20:21 20:21 WBC (4.4-10.8) 10^3/uL RBC (3.93-5.22) 10^6/uL Hgb (11.2-15.7) g/dL Hct (36.0-46.0) % MCV (80-95) fL MCH (27.0-33.0) pg MCHC (32.0-36.0) % RDW (11.7-14.6) % Plt Count (130-400) 10^3/uL MPV (8.0-11.0) fL Immature Gran % Neutrophils % Lymphocytes % Atypical Lymphs % Monocytes % Eosinophils % Basophils % Nucleated RBC % (0.0-0.3) % Absolute Neutrophils (1.2-6.7) 10^3/uL Absolute Lymphocytes (1.2-3.4) 10^3/uL Absolute Monocytes (0.1-0.8) 10^3/uL Absolute Eosinophils (0.0-0.7) 10^3/uL Absolute Basophils (0.0-0.2) 10^3/uL RBC Morphology VBG pH (7.31-7.41) 7.43 H VBG pCO2 (41-51) mmHg 39 L VBG pO2 mmHg 35 VBG HCO3 (23-28) mmol/L 26 VBG Total CO2 (24-29) mmol/L 24 VBG O2 Saturation % 69 VBG Base Excess (-2-3) mmol/L 2 VBG Lactate (0.6-1.4) mmol/L Sodium (136-145) mmol/L Potassium (3.5-5.1) mmol/L Chloride (98-107) mmol/L Carbon Dioxide (21.0-32.0) mmol/L Anion Gap (3-11) mmol/L BUN (7-18) mg/dL Creatinine (0.55-1.02) mg/dL Est GFR (CKD-EPI 2020) (mL/min/1.73m2) Glucose (74-106) mg/dL Calcium (8.5-10.1) mg/dL Magnesium (1.8-2.4) mg/dL Total Bilirubin (0.2-1.0) mg/dL AST (15-37) U/L ALT (14-59) U/L Alkaline Phosphatase (46-116) U/L Troponin I (<or=60) ng/L < 50 Total Protein (6.4-8.2) g/dL Albumin (3.4-5.0) g/dL Urine Color (Yellow) Urine Clarity (Clear) Urine pH (5-8) Ur Specific [place] (1.005-1.025) Urine Protein (Negative) mg/dL Urine Ketones (Negative) mg/dL Urine Blood (Negative) Urine Nitrite (Negative) Urine Bilirubin (Negative) Urine Urobilinogen (Up to 0.2) mg/dL Ur Leukocyte Esterase (Negative) Urine RBC (0-2) HPF Urine WBC (0-5) HPF Ur Epithelial Cells (Negative) HPF Urine Crystals (Negative) HPF Urine Bacteria (Negative) HPF Urine Casts (Negative) LPF Urine Mucus (Negative) Ur Culture Indicated? Urine Glucose (Negative) mg/dL COVID-19 Source SARS-CoV-2 (PCR) (Negative) Influenza Type A (PCR) (Negative) Influenza Type B (PCR) (Negative) RSV (PCR) (Negative) Critical Care Time Critical Care Time Critical Care Time: Yes Total Critical Care Time: 45 Attestation: 45 min of CC time with oxygen supplementation secondary to acute respiratory f ailure, antibiotics with pneumonia, ivf resuscitation, hospitalist consultation and admission
[2023-01-18] VITALS (247 sets, daily range): BP systolic 82–145; BP diastolic 42–109; PULSE 64–115; RESP 1–39; TEMP 36.8–38.4; O2SAT 85–97
[2023-01-18] MEDS: MAGNESIUM SULFATE 2 GM/50 ML BAG IVPB (01:51)
[2023-01-18] MEDS: POTASSIUM CHLORIDE 20 MEQ/100 ML BAG 50 MEQ IVPB (01:51)
[2023-01-18] MEDS: Enoxaparin 40 MG/0.4 ML SYR SC ×2 (02:55→21:43)
[2023-01-18 06:17] LABS: HCT 29.9 % (36.0-46.0); HGB 10.1 g/dL (11.2-15.7); MCH 30.4 pg (27.0-33.0); MCHC 33.8 % (32.0-36.0); MCV 90 fL (80-95); MPV 9.1 fL (8.0-11.0); Platelet Count 224 10^3/uL (130-400); RBC 3.32 10^6/uL (3.93-5.22); RDW-SD 49.3 fL
[2023-01-18 07:23] LABS: ALT 39 U/L (14-59); AST 19 U/L (15-37); Albumin 2.4 g/dL (3.4-5.0); Alkaline Phosphatase 81 U/L (46-116); Anion Gap 6.8 mmol/L (3-11); BUN 12 mg/dL (7-18); Bilirubin, Total 1.1 mg/dL (0.2-1.0); CO2 23.2 mmol/L (21.0-32.0); CREATININE 0.6 mg/dL (0.55-1.02); Calcium 8.2 mg/dL (8.5-10.1); Chloride 102 mmol/L (98-107); Estimated GFR 95.31 (mL/min/1.73m2); Glucose 114 mg/dL (74-106); Magnesium 2.2 mg/dL (1.8-2.4); Potassium 3.9 mmol/L (3.5-5.1); Sodium 132 mmol/L (136-145); Total Protein 5.9 g/dL (6.4-8.2)
[2023-01-18] MEDS: guaiFENesin 600 MG TABCR PO ×2 (08:40→21:44)
[2023-01-18] MEDS: Sertraline 50 MG TAB PO (08:40)
[2023-01-18] MEDS: Cholecalciferol (Vitamin D3) 1,000 UNIT TAB 2000 UNITS PO (08:40)
[2023-01-18] MEDS: Albuterol/Ipratropium 3 ML UPD VIAL UPD ×2 (09:20→15:10)
[2023-01-18 09:43] LABS: Lab Add On Test DONE
[2023-01-18 10:21] LABS: Procalcitonin < 0.1 ng/mL
--- NOTE | 2023-01-18 10:43 | W.PM.PROGNOT ---
Date of Service Date of service: 01/18/23 Time of Service: 10:43 Assessment and Plan Assessment and plan (1) Acute hypoxemic respiratory failure: Start date: 01/17/23 Status: Acute Assessment and plan: Patient usually is on room air at home but presented with respiratory symptoms and hypoxemia. No wheeze or need for treating bronchospasm; no steroids Full code (2) COPD (chronic obstructive pulmonary disease): Status: Chronic Assessment and plan: Patient is acute with pneumonia and requiring oxygen supplementation; wean before discharge. O2 supplementation may be needed chronically s/t lung CA and increased oxygen demand (3) Pneumonia: Start date: 01/17/23 Status: Acute Assessment and plan: Bibasilar by CT Continue Levaquin and cardiac monitoring - on psych meds, watch for QT prolongation (4) Hyponatremia: Start date: 01/17/23 Status: Acute Assessment and plan: Replete with IV normal saline and trend labs. 132 today (5) Hypomagnesemia: Start date: 01/17/23 Status: Acute Assessment and plan: Replete with IV magnesium sulfate and follow-up labs at least daily. 2.2 today (6) Small cell lung cancer: Status: Chronic Assessment and plan: Patient is just starting chemotherapy and does have a history of COPD. Patient is a full code. (7) DVT prophylaxis: Status: Acute Assessment and plan: enoxaparin (8) Discharge planning issues: Status: Acute Assessment and plan: Home when medically stable Discussed with Dr Lebron Subjective Subjective Patient reports: no new complaints, tolerating a regular diet and voiding w/o difficulty; denies diarrhea, nausea or vomiting Exam Narrative Exam Narrative: General: Patient appears appropriate for age, smiling, alert and oriented to person, place and time. She is in no acute distress. Pleasant, conversant. HEENT: Normocephalic, eyes with pupils equal react to light symmetrically, extraocular movement intact and sclera anicteric. Oropharynx with slightly dry mucosa. Neck: Supple without JVD. Back: Stooped posture without CVA tenderness. Lungs: Decreased bilateral bases, no wheezes, rhonchi or rales Breast: Exam deferred. Heart: Regular rate and rhythm with no murmur or gallop. Abdomen: Obese contour, soft and nontender to palpation with no palpable hepatosplenomegaly. Genitalia/rectal: Exam deferred. Extremities: Without clubbing, cyanosis or grossly pitting edema. Good capillary refill. Skin: Normal color, warm and dry. Neuro: Cranial nerves II through XII gross intact, no focalizing motor deficits and no tremor. Psych: Normal affect and mood. Remote and recent memory appear to be grossly intact. No abnormal thought processes. Objective Last Vital Signs Temp 37.2 C 01/18/23 05:06 Pulse 88 01/18/23 09:20 Resp 21 01/18/23 09:20 BP 129/60 01/18/23 08:45 Pulse Ox 93 01/18/23 09:20 Laboratory Results - last 24 hr 01/17/23 01/17/23 01/17/23 17:00 17:00 17:00 WBC 12.22 H RBC 3.71 L Hgb 11.4 Hct 32.9 L MCV 89 MCH 30.7 MCHC 34.7 RDW 14.8 H Plt Count 305 MPV 8.6 Immature Gran % 0.0 Neutrophils % 85.0 Lymphocytes % 11.0 Atypical Lymphs % 1 Monocytes % 3.0 Eosinophils % 0.0 Basophils % 0.0 Nucleated RBC % 0.0 Absolute Neutrophils 10.39 H Absolute Lymphocytes 1.47 Absolute Monocytes 0.37 Absolute Eosinophils 0.00 Absolute Basophils 0.00 RBC Morphology Normal VBG pH VBG pCO2 VBG pO2 VBG HCO3 VBG Total CO2 VBG O2 Saturation VBG Base Excess VBG Lactate 0.5 L Sodium 133 L Potassium 3.4 L Chloride 102 Carbon Dioxide 24.3 Anion Gap 6.7 BUN 18 Creatinine 0.6 Est GFR (CKD-EPI 2020) 95.31 Glucose 104 Calcium 8.1 L Magnesium 1.7 L Total Bilirubin 0.8 AST 19 ALT 36 Alkaline Phosphatase 74 Troponin I Total Protein 5.5 L Albumin 2.5 L Procalcitonin Urine Color Urine Clarity Urine pH Ur Specific [place] Urine Protein Urine Ketones Urine Blood Urine Nitrite Urine Bilirubin Urine Urobilinogen Ur Leukocyte Esterase Urine RBC Urine WBC Ur Epithelial Cells Urine Crystals Urine Bacteria Urine Casts Urine Mucus Ur Culture Indicated? Urine Glucose COVID-19 Source SARS-CoV-2 (PCR) Influenza Type A (PCR) Influenza Type B (PCR) RSV (PCR) Add-On Test Request 01/17/23 01/17/23 01/17/23 17:00 17:17 17:35 WBC RBC Hgb Hct MCV MCH MCHC RDW Plt Count MPV Immature Gran % Neutrophils % Lymphocytes % Atypical Lymphs % Monocytes % Eosinophils % Basophils % Nucleated RBC % Absolute Neutrophils Absolute Lymphocytes Absolute Monocytes Absolute Eosinophils Absolute Basophils RBC Morphology VBG pH VBG pCO2 VBG pO2 VBG HCO3 VBG Total CO2 VBG O2 Saturation VBG Base Excess VBG Lactate Sodium Potassium Chloride Carbon Dioxide Anion Gap BUN Creatinine Est GFR (CKD-EPI 2020) Glucose Calcium Magnesium Total Bilirubin AST ALT Alkaline Phosphatase Troponin I < 50 Total Protein Albumin Procalcitonin Urine Color Yellow Urine Clarity Clear Urine pH 7.5 Ur Specific [place] 1.020 Urine Protein Negative Urine Ketones Negative Urine Blood Trace-intact H Urine Nitrite Negative Urine Bilirubin Negative Urine Urobilinogen 1.0 H Ur Leukocyte Esterase Negative Urine RBC 0-2 Urine WBC 0-2 Ur Epithelial Cells Rare Urine Crystals Negative Urine Bacteria Negative Urine Casts Negative Urine Mucus Negative Ur Culture Indicated? No Urine Glucose Negative COVID-19 Source Nasopharynx SARS-CoV-2 (PCR) Negative Influenza Type A (PCR) Negative Influenza Type B (PCR) Negative RSV (PCR) Negative Add-On Test Request 01/17/23 01/17/23 01/18/23 20:21 20:21 06:00 WBC RBC Hgb Hct MCV MCH MCHC RDW Plt Count MPV Immature Gran % Neutrophils % Lymphocytes % Atypical Lymphs % Monocytes % Eosinophils % Basophils % Nucleated RBC % Absolute Neutrophils Absolute Lymphocytes Absolute Monocytes Absolute Eosinophils Absolute Basophils RBC Morphology VBG pH 7.43 H VBG pCO2 39 L VBG pO2 35 VBG HCO3 26 VBG Total CO2 24 VBG O2 Saturation 69 VBG Base Excess 2 VBG Lactate Sodium Cancelled Potassium Cancelled Chloride Cancelled Carbon Dioxide Cancelled Anion Gap Cancelled BUN Cancelled Creatinine Cancelled Est GFR (CKD-EPI 2020) Cancelled Glucose Cancelled Calcium Cancelled Magnesium Cancelled Total Bilirubin Cancelled AST Cancelled ALT Cancelled Alkaline Phosphatase Cancelled Troponin I < 50 Total Protein Cancelled Albumin Cancelled Procalcitonin Urine Color Urine Clarity Urine pH Ur Specific [place] Urine Protein Urine Ketones Urine Blood Urine Nitrite Urine Bilirubin Urine Urobilinogen Ur Leukocyte Esterase Urine RBC Urine WBC Ur Epithelial Cells Urine Crystals Urine Bacteria Urine Casts Urine Mucus Ur Culture Indicated? Urine Glucose COVID-19 Source SARS-CoV-2 (PCR) Influenza Type A (PCR) Influenza Type B (PCR) RSV (PCR) Add-On Test Request 01/18/23 01/18/23 01/18/23 06:00 07:00 07:00 WBC 11.90 H RBC 3.32 L Hgb 10.1 L Hct 29.9 L MCV 90 MCH 30.4 MCHC 33.8 RDW 15.0 H Plt Count 224 MPV 9.1 Immature Gran % Neutrophils % Lymphocytes % Atypical Lymphs % Monocytes % Eosinophils % Basophils % Nucleated RBC % Absolute Neutrophils Absolute Lymphocytes Absolute Monocytes Absolute Eosinophils Absolute Basophils RBC Morphology VBG pH VBG pCO2 VBG pO2 VBG HCO3 VBG Total CO2 VBG O2 Saturation VBG Base Excess VBG Lactate Sodium 132 L Potassium 3.9 Chloride 102 Carbon Dioxide 23.2 Anion Gap 6.8 BUN 12 Creatinine 0.6 Est GFR (CKD-EPI 2020) 95.31 Glucose 114 H Calcium 8.2 L Magnesium 2.2 Total Bilirubin 1.1 H AST 19 ALT 39 Alkaline Phosphatase 81 Troponin I Total Protein 5.9 L Albumin 2.4 L Procalcitonin Urine Color Urine Clarity Urine pH Ur Specific [place] Urine Protein Urine Ketones Urine Blood Urine Nitrite Urine Bilirubin Urine Urobilinogen Ur Leukocyte Esterase Urine RBC Urine WBC Ur Epithelial Cells Urine Crystals Urine Bacteria Urine Casts Urine Mucus Ur Culture Indicated? Urine Glucose COVID-19 Source SARS-CoV-2 (PCR) Influenza Type A (PCR) Influenza Type B (PCR) RSV (PCR) Add-On Test Request DONE 01/18/23 07:00 WBC RBC Hgb Hct MCV MCH MCHC RDW Plt Count MPV Immature Gran % Neutrophils % Lymphocytes % Atypical Lymphs % Monocytes % Eosinophils % Basophils % Nucleated RBC % Absolute Neutrophils Absolute Lymphocytes Absolute Monocytes Absolute Eosinophils Absolute Basophils RBC Morphology VBG pH VBG pCO2 VBG pO2 VBG HCO3 VBG Total CO2 VBG O2 Saturation VBG Base Excess VBG Lactate Sodium Potassium Chloride Carbon Dioxide Anion Gap BUN Creatinine Est GFR (CKD-EPI 2020) Glucose Calcium Magnesium Total Bilirubin AST ALT Alkaline Phosphatase Troponin I Total Protein Albumin Procalcitonin < 0.1 Urine Color Urine Clarity Urine pH Ur Specific [place] Urine Protein Urine Ketones Urine Blood Urine Nitrite Urine Bilirubin Urine Urobilinogen Ur Leukocyte Esterase Urine RBC Urine WBC Ur Epithelial Cells Urine Crystals Urine Bacteria Urine Casts Urine Mucus Ur Culture Indicated? Urine Glucose COVID-19 Source SARS-CoV-2 (PCR) Influenza Type A (PCR) Influenza Type B (PCR) RSV (PCR) Add-On Test Request Time Spent with Patient Time Spent with Patient: <25 minutes Time was spent: preparing to see the patient(eg.review tests), ordering medications,tests, procedures, referring, communicating with other health intensive care ambulance paramedic, indepentently interpreting results, counseling the patient and care coordination
--- NOTE | 2023-01-18 11:25 | NUR.NOTE ---
1115: patient moved onto hospital bed for comfort Nursing Note:
[2023-01-18] MEDS: Acetaminophen 325 MG TAB PO ×2 (15:23→22:59)
--- NOTE | 2023-01-18 16:34 | NUR.NOTE ---
pt provided with snack Nursing Note:
--- NOTE | 2023-01-18 18:24 | NUR.NOTE ---
Admission: Pt arrived on floor via bed from ER at 1822. Pt Awake and oriented to person and place. No pain noted at this time. Will settle pt into room and orient pt to floor.Nursing Note:
[2023-01-18] MEDS: Normal Saline 250 ML 500 ML IV (18:36)
[2023-01-18] MEDS: levoFLOXacin 750 MG/150 ML BAG 100 MG IVPB (21:44)
[2023-01-18] MEDS: Rosuvastatin 10 MG TAB 20 MG PO (21:49)
[2023-01-18 22:55] LABS: Legionella Ag Detection Urine Negative (Negative)
[2023-01-18] MEDS: Normal Saline 1,000 ML 125 ML IV (23:07)
[2023-01-19] VITALS (18 sets, daily range): BP systolic 104–164; BP diastolic 54–70; PULSE 76–113; RESP 1–20; TEMP 36.7–38.8; O2SAT 88–95
[2023-01-19 07:43] LABS: Abs Immature Grans 0.22 10^3/uL (0.0-0.06); Absolute Lymphocyte Count 0.49 10^3/uL (1.2-3.4); Absolute Monocyte Count 0.12 10^3/uL (0.1-0.8); Absolute Neutrophil Count 6.96 10^3/uL (1.2-6.7); Basophils % 1.3; HGB 9.5 g/dL (11.2-15.7); Immature Grans % 2.8; Lymphocytes % 6.2; MCH 30.7 pg (27.0-33.0); MCHC 33.9 % (32.0-36.0); MCV 91 fL (80-95); MPV 8.6 fL (8.0-11.0); Monocytes % 1.5; Neutrophils % 88.2; Platelet Count 270 10^3/uL (130-400); RBC 3.09 10^6/uL (3.93-5.22); RDW 14.7 % (11.7-14.6); RDW-SD 48.9 fL; WBC 7.89 10^3/uL (4.4-10.8)
[2023-01-19 07:46] LABS: Anion Gap 8.2 mmol/L (3-11); BUN 11 mg/dL (7-18); CO2 22.8 mmol/L (21.0-32.0); CREATININE 0.5 mg/dL (0.55-1.02); Calcium 7.9 mg/dL (8.5-10.1); Chloride 106 mmol/L (98-107); Estimated GFR 99.59 (mL/min/1.73m2); Glucose 94 mg/dL (74-106); Potassium 3.6 mmol/L (3.5-5.1); Sodium 137 mmol/L (136-145)
[2023-01-19] MEDS: Albuterol/Ipratropium 3 ML UPD VIAL UPD ×3 (08:19→22:08)
[2023-01-19] MEDS: guaiFENesin 600 MG TABCR PO ×2 (08:46→19:53)
[2023-01-19] MEDS: Sertraline 50 MG TAB PO (08:46)
[2023-01-19] MEDS: Cholecalciferol (Vitamin D3) 1,000 UNIT TAB 2000 UNITS PO (08:47)
--- NOTE | 2023-01-19 09:52 | INITIAL_ITS ---
Date of service: 01/19/23 Time of Service: 09:52 Care Management Initial Assmt Initial Assessment REASON FOR HOSPITALIZATION:: Acute hypoxemic respiratory failure PREVIOUS FUNCTIONAL STATUS/SOCIAL/FAMILY SUPPORTS:: Celi lives in [facility] with her Lance. Per pt, Lance has Alzheimer's and she is his primary caregiver. She has two sons who are both teachers and are very supportive. Chivo resides in [facility] and Charles resides in [place]. Chivo and his family are staying with Lance during this hospital admission. Celi shares that she was in perfect health, until she was diagnosed with cancer in October. Celi no longer drives and shares that her sister Natalia Ryder brings her to her Chemo treatments. CURRENT FUNCTIONAL STATUS:: Celi is lying in bed when CM met with her. She is awake and engages in conversation. Celi shares that her has Alzheimer's and she is planning on hiring personal caregivers to help at home since her health is also compromised. CM provided patient with caregiver resources. ADVANCE DIRECTIVES:: On file, primary [facility] is star Lucas.agent is son Chivo Has patient been provided with info about the portal/API?: Yes Did the patient sign up for the portal?: Yes (Prior to admission) CODE STATUS:: Full Code (Prior to admission) INSURANCE COVERAGE / FINANCIAL ISSUES:: BS [facility] Advantage CURRENT HOME/COMMUNITY SERVICES/EQUIPMENT:: None PRIMARY CARE PHYSICIAN:: Addie Franks POTENTIAL DISCHARGE NEEDS:: Evaluation for increased support PATIENT/FAMILY EDUCATION NEEDS:: Review discharge instructions, limitations, medications and plan to follow up with community providers. Discuss ask me three. ANTICIPATED BARRIERS TO DISCHARGE:: None identified. TRANSPORTATION:: Via private vehicle with sister PLAN:: Anticipate, Celi will discharge home via private vehicle with sister when medically ready per provider. She will follow up with community providers and her discharge plan of care as instructed. New [facility] services will be ordered if indicated. CM will continue to support Celi and her discharge planning needs. 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, liver and spine mets Benign paroxysmal positional vertigo of right ear (Acute) Blood in right ear canal (Acute) Hyperplastic colon polyp (Acute) Migraine headache (Chronic 12/25/11) Tobacco use disorder (Chronic 12/23/12) Tubular adenoma of colon (Chronic 04/03/16) Asymmetrical sensorineural hearing loss (Acute) Impairment of speech discrimination (Acute) Medical History 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 Repeat in 5 years. 02/[address] Chivo Nuñez 04/03/2016 tubular adenomas, Dr. Chivo Nuñez, repeat 5 yrs Trigger Finger release 09/2013 Family History Mother Personal history of malignant neoplasm BREAST Father Essential hypertension Personal history of malignant neoplasm LUNG/MELANOMA Heart disease Hyperlipidemia Sister No problems noted. Grandfather Personal history of malignant neoplasm STOMACH Grandfather Personal history of malignant neoplasm Grandmother No problems noted. Grandmother Personal history of malignant neoplasm Social History Smoking/Tobacco Use Status: Current every day Tobacco Type: cigarettes Years smoked: 55 Smoking risk assessment performed?: Yes Alcohol Intake: never Drug use: Never Substance use type: does not use Current gender identity: female Do you feel safe at home: Yes Do you feel safe in your relationship?: Yes Additional Social history: has alzheimers Female Reproductive History Menstrual Menopause type: natural History History 2 Para 2 Hx # Term Pregnancies Multiple births Hx # Pregnancies Ectopic pregnancies AB induced Hx Number of Living Children AB spontaneous
[2023-01-19] MEDS: Benzonatate 200 MG CAP PO ×3 (10:16→19:53)
[2023-01-19] MEDS: Acetaminophen 325 MG TAB PO ×2 (11:29→19:53)
--- NOTE | 2023-01-19 12:50 | PGE_ITS ---
Date of Service Date of service: 01/19/23 Time of Service: 12:50 Assessment and Plan Assessment and plan (1) Acute hypoxemic respiratory failure: Start date: 01/17/23 Status: Acute Assessment and plan: Patient usually is on room air at home but presented with respiratory symptoms and hypoxemia. No wheeze or need for treating bronchospasm; no steroids Full code (2) COPD (chronic obstructive pulmonary disease): Status: Chronic Assessment and plan: Patient is acute with pneumonia and requiring oxygen supplementation; wean before discharge. O2 supplementation may be needed chronically s/t lung CA and increased oxygen demand Did do exercise oximetry today and maintained above 88%, but once down at 88% required rest a sometime to recover (3) Pneumonia: Start date: 01/17/23 Status: Acute Assessment and plan: Bibasilar by CT Continue Levaquin and cardiac monitoring Added Vancomycin in setting of fever > 38 On psych meds, watch for QT prolongation - none today ~ 0.36 Blood cultures neg for 24h (4) Hyponatremia: Start date: 01/17/23 Status: Acute Assessment and plan: 137 today (5) Hypomagnesemia: Start date: 01/17/23 Status: Acute Assessment and plan: Replete with IV magnesium sulfate as needed and follow-up labs at least daily. 2.0 today (6) Small cell lung cancer: Status: Chronic Assessment and plan: Patient is just starting chemotherapy and does have a history of COPD. She has had three treatments and states there in one more to go Patient is a full code. (7) DVT prophylaxis: Status: Acute Assessment and plan: enoxaparin (8) Discharge planning issues: Status: Acute Assessment and plan: Home when medically stable +/- oxygen Discussed with Dr Lebron Subjective Subjective Patient reports: no new complaints, feels better, tolerating a regular diet, voiding w/o difficulty, bowel movement, shortness of breath (with exertion) and fever (38.8 - down after acetaminophen); denies diarrhea, nausea or vomiting Interval history since last seen: She feels better but is tired. She is concerned about her that has alzheimers. She is willing to stay since she now has a fever and she was able to find someone to stay with her tonight. She did drop to 88% on exercise oximetry. We did discuss she might need oxygen at home, she is ok with that if it is needed, we will test again tomorrow. Exam Narrative Exam Narrative: General: Patient appears appropriate for age, smiling, alert and oriented to person, place and time. She is in no acute distress. Pleasant, conversant. HEENT: Normocephalic, eyes with pupils equal react to light symmetrically, extraocular movement intact and sclera anicteric. Oropharynx with slightly dry mucosa. Neck: Supple without JVD. Back: Stooped posture without CVA tenderness. Lungs: Decreased bilateral bases, no wheezes, rhonchi or rales Breast: Exam deferred. Heart: Regular rate and rhythm with no murmur or gallop. Abdomen: Obese contour, soft and nontender to palpation with no palpable hepatosplenomegaly. Genitalia/rectal: Exam deferred. Extremities: Without clubbing, cyanosis or grossly pitting edema. Good capillary refill. Skin: Normal color, warm and dry. Neuro: Cranial nerves II through XII gross intact, no focalizing motor deficits and no tremor. Psych: Normal affect and mood. Remote and recent memory appear to be grossly intact. No abnormal thought processes. Objective Last Vital Signs Temp 38.8 C H 01/19/23 11:25 Pulse 100 H 01/19/23 11:25 Resp 18 01/19/23 11:25 BP 136/63 01/19/23 11:25 Pulse Ox 92 01/19/23 11:25 Laboratory Results - last 24 hr 01/18/23 01/19/23 01/19/23 10:56 06:10 06:10 WBC 7.89 RBC 3.09 L Hgb 9.5 L Hct 28.0 L MCV 91 MCH 30.7 MCHC 33.9 RDW 14.7 H Plt Count 270 MPV 8.6 Immature Gran % 2.8 Neutrophils % 88.2 Lymphocytes % 6.2 Monocytes % 1.5 Eosinophils % 0.0 Basophils % 1.3 Nucleated RBC % 0.0 Absolute Neutrophils 6.96 H Absolute Lymphocytes 0.49 L Absolute Monocytes 0.12 Absolute Eosinophils 0.00 Absolute Basophils 0.10 Sodium 137 Potassium 3.6 Chloride 106 Carbon Dioxide 22.8 Anion Gap 8.2 BUN 11 Creatinine 0.5 L Est GFR (CKD-EPI 2020) 99.59 Glucose 94 Calcium 7.9 L Magnesium 2.0 Urine Legionella Ag Negative Time Spent with Patient Time Spent with Patient: 25-34 minutes Time was spent: preparing to see the patient(eg.review tests), ordering medications,tests, procedures, referring, communicating with other health health care coach, indepentently interpreting results, counseling the patient and care coordination
[2023-01-19] MEDS: Mylanta Suspension 30 ML CUP PO (19:51)
[2023-01-19] MEDS: levoFLOXacin 750 MG/150 ML BAG 100 MG IVPB (19:52)
[2023-01-19] MEDS: Rosuvastatin 10 MG TAB 20 MG PO (19:53)
[2023-01-19] MEDS: Enoxaparin 40 MG/0.4 ML SYR SC (22:08)
[2023-01-19] MEDS: Normal Saline 1,000 ML 125 ML IV (22:10)
[2023-01-19] MEDS: VANCOMYCIN 1,000 MG in Normal Saline 250 ML 166.667 MG IVPB (22:10)
[2023-01-19] MEDS: Water,Injection,Sterile 10 ML VIAL (22:29)
[2023-01-20] VITALS (8 sets, daily range): BP systolic 133–135; BP diastolic 70–72; PULSE 87–96; RESP 6–20; TEMP 36.8–37.6; O2SAT 94–100
[2023-01-20] MEDS: Albuterol/Ipratropium 3 ML UPD VIAL UPD ×2 (03:13→09:19)
[2023-01-20 06:45] LABS: Absolute Basophil Count 0.05 10^3/uL (0.0-0.2); Absolute Lymphocyte Count 0.51 10^3/uL (1.2-3.4); Absolute Neutrophil Count 4.59 10^3/uL (1.2-6.7); Basophils % 0.9; HCT 27.5 % (36.0-46.0); HGB 9.4 g/dL (11.2-15.7); Immature Grans % 1.8; Lymphocytes % 9.4; MCH 30.7 pg (27.0-33.0); MCHC 34.2 % (32.0-36.0); MCV 90 fL (80-95); MPV 8.1 fL (8.0-11.0); Monocytes % 3.7; Neutrophils % 84.2; Platelet Count 263 10^3/uL (130-400); RBC 3.06 10^6/uL (3.93-5.22); RDW 14.6 % (11.7-14.6); RDW-SD 48.1 fL; WBC 5.45 10^3/uL (4.4-10.8)
[2023-01-20 07:12] LABS: Anion Gap 13.8 mmol/L (3-11); BUN 9 mg/dL (7-18); CO2 22.2 mmol/L (21.0-32.0); CREATININE 0.6 mg/dL (0.55-1.02); Calcium 7.8 mg/dL (8.5-10.1); Chloride 108 mmol/L (98-107); Estimated GFR 95.31 (mL/min/1.73m2); Glucose 100 mg/dL (74-106); Magnesium 1.9 mg/dL (1.8-2.4); Potassium 3.2 mmol/L (3.5-5.1); Sodium 144 mmol/L (136-145)
[2023-01-20 07:54] LABS: Procalcitonin 0.1 ng/mL
[2023-01-20] MEDS: Cholecalciferol (Vitamin D3) 1,000 UNIT TAB 2000 UNITS PO (08:13)
[2023-01-20] MEDS: Benzonatate 200 MG CAP PO (08:13)
[2023-01-20] MEDS: guaiFENesin 600 MG TABCR PO (08:14)
[2023-01-20] MEDS: Sertraline 50 MG TAB PO (08:14)
--- NOTE | 2023-01-20 09:44 | W.PM.DS.N ---
Date of service: 01/20/23 Time of Service: 09:45 DS: Diagnosis Discharge Diagnosis (1) Acute hypoxemic respiratory failure: Status: Acute (2) COPD (chronic obstructive pulmonary disease): Status: Chronic (3) Pneumonia: Status: Acute (4) Hyponatremia: Status: Acute (5) Hypomagnesemia: Status: Acute (6) Small cell lung cancer: Status: Chronic (7) DVT prophylaxis: Status: Acute (8) Discharge planning issues: Status: Acute Discharge Plan Disposition Patient Disposition: Home Condition: Fair Discharge Details Reason For Visit: Pneumonia, Lung Cancer, COPD, Hypoxemia Admit Date/Time: 01/17/23 20:23 Admit Provider: Sujit Hoffmann Attending Provider: Sujit Hoffmann Primary Care Provider: Addie Franks [facility] Course Hospital Course: This is a 72-year-old female patient with a past medical history of small cell carcinoma of the lung and is currently receiving chemotherapy with the last chemotherapy 2 days prior to admission and COPD without oxygen needs, who presented to the [facility] ED with the chief complaint of shortness of breath and was hypoxic upon presentation.? CTA showed no PE but bilateral infiltrates with pneumonia.? She did not have any production of sputum with her cough nor hemoptysis.? She had no GI complaints.? She denied chest pain and any cardiovascular complaints.? No focalized neurological complaints.? Patient was admitted for IV Levaquin to treat her pneumonia and for oxygen supplementation because of her increased needs with her lung cancer as well as COPD now with pneumonia.?She was on room air oxygen with saturations above 90% in a few hours after admission. She passed the excerize oximetry and was anxious to go home. She did develop a fever and stayed another night. Her BC are negative. Her vital signs are stable with no fever today. She has a she cares for that has Alzheimer's and she is anxious to go home. She has improved enough, afebrile, oxygen levels 98-100% on room air, speaking in full sentences, ambulating in the room and is able to take Levoquin orally. She is discharged to home with her son, stable. Prescriptions for Levofloxacin, guaifenesin, and benzonatate sent. Discussed medications with patient. Patient and family agree with this plan. Discussed with Dr Wilde ? Home Meds and New Rx's Prescriptions: New benzonatate 200 mg Capsule 200 mg PO TID Qty: 30 0RF guaifenesin [Mucus Relief ER] 600 mg Tablet Extended Release 12hr 600 mg PO BID Qty: 30 0RF levofloxacin 750 mg tablet 750 mg PO DAILY Qty: 8 0RF Rx Instructions: Remainder of 10d course Continued rosuvastatin 20 mg tablet 40 mg PO DAILY Trelegy Ellipta 100-62.5-25 mcg blister with device 1 inh inhalation DAILY Qty: 60 12RF albuterol sulfate 90 mcg/actuation HFA aerosol inhaler 2 puff inhalation Q6H PRN (Reason: shortness of breath or wheezing) Qty: 8.5 12RF riboflavin (vitamin B2) 400 mg tablet 400 mg PO DAILY sumatriptan succinate [Imitrex] 100 MG tablet 100 mg PO PRN PRN sertraline 50 MG tablet 50 mg PO DAILY cholecalciferol (vitamin D3) 1,000 UNITS tablet 2,000 units PO DAILY Proactive Cream 1 ea Topical BID Patient Comments: hold aspirin 81 mg tablet,delayed release (DR/EC) 81 mg PO DAILY Discharge Instructions Instructions: Benzonatate (By mouth), Levofloxacin (By mouth), Community Acquired Pneumonia (DC) Additional Instructions: Take Levofloxacin until gone, one a day. Take tylenol for fever. Take Benzonatate for cough. Stand Alone Forms: Nursing Discharge Form Referrals: Addie Franks MD [Primary Care Provider] - 01/27/23 2:20 pm (1-2 weeks ) Activity:: Activity as Tolerated Equipment/Supplies:: No Equipment Needed Diet:: As Tolerated Discharge Orders Discharge Orders: Discharge Order (Routine); Ordered 01/20/23 Ordered By: Tarsha Condon Discharge Data Discharge Date/Time-TO BE ENTERED AT DEPARTURE: 01/20/23 11:10 DS: Summary Time Spent with Patient providing and/or coordinating discharge services: Greater than 30 minutes Status at Discharge Functional status at discharge: independent ambulation Overall status at discharge: patient is progressing back to baseline Mental Status: mental status grossly normal Speech and Movement: speech and movement normal Mood: congruent mood Affect: normal affect Exam Narrative Exam Narrative: General: Patient appears appropriate for age, smiling, alert and oriented to person, place and time. She is in no acute distress. Pleasant, conversant. Son and in the room with her. She is on room air HEENT: Normocephalic, eyes with pupils equal react to light symmetrically, extraocular movement intact and sclera anicteric. Oropharynx with slightly dry mucosa. Neck: Supple without JVD. Back: Stooped posture without CVA tenderness. Lungs: Decreased bilateral bases, no wheezes, rhonchi or rales Breast: Exam deferred. Heart: Regular rate and rhythm with no murmur or gallop. Abdomen: Obese contour, soft and nontender to palpation with no palpable hepatosplenomegaly. Genitalia/rectal: Exam deferred. Extremities: Without clubbing, cyanosis or grossly pitting edema. Good capillary refill. Skin: Normal color, warm and dry. Neuro: Cranial nerves II through XII gross intact, no focalizing motor deficits and no tremor. Psych: Normal affect and mood. Remote and recent memory appear to be grossly intact. No abnormal thought processes. Psych Mental Status: mental status grossly normal Speech and Movement: speech and movement normal Mood: congruent mood Affect: normal affect DS: Data Vitals/I&O Vitals and I&O: Vital Signs Temperature 37.6 C H 01/20/23 06:56 Temperature Source Tympanic 01/20/23 06:56 Pulse 87 01/20/23 09:26 Pulse Rhythm Regular 01/20/23 08:00 Pulse 96 H 01/18/23 17:50 Respiratory Rate 14 01/20/23 09:19 Respiratory Effort Normal 01/20/23 08:00 Respiratory Depth Normal 01/20/23 08:00 Respiratory Pattern Normal 01/20/23 08:00 Blood Pressure 135/72 01/20/23 06:56 Blood Pressure Mean 74 01/18/23 17:45 Blood Pressure Position Sitting 01/17/23 16:24 Pulse Oximetry 100 01/20/23 09:26 Oxygen Delivery Method Room Air 01/20/23 09:22 Oxygen Flow Rate 0 01/20/23 09:22 Pain Level 0 01/19/23 02:44 Comment BP called over radio 01/19/23 15:32 Intake & Output 01/19/23 01/19/23 01/20/23 11:59 23:59 11:59 Intake Total 650 / 2745.833 2095.833 / 2745.833 Output Total 850 / 1800 950 / 1800 1400 / 1400 Balance -200 / 403.034 4179.833 / 945.833 -1400 / -1400 Weight 59.4 kg 57 kg Intake: IV 150 / 1614.431 4627.833 / 1545.833 Oral 500 / 1200 700 / 1200 Output: Urine 850 / 1800 950 / 1800 1400 / 1400 Other: Urine Color Yellow Yellow Yellow Urine Appearance Clear Clear Clear Urine Odor Normal None Comment could not measure, mixed with stool. Stool Size Moderate Smear Stool Characteristics Soft Soft Brown Brown Voiding Methods Bedside Commode Bedside Commode Bedside Commode Data Completed and Pending Labs on day of discharge: Labs from last 24 hours 01/20/23 01/20/23 01/20/23 08:30 06:06 06:06 WBC 5.45 RBC 3.06 L Hgb 9.4 L Hct 27.5 L MCV 90 MCH 30.7 MCHC 34.2 RDW 14.6 Plt Count 263 MPV 8.1 Immature Gran % 1.8 Neutrophils % 84.2 Lymphocytes % 9.4 Monocytes % 3.7 Eosinophils % 0.0 Basophils % 0.9 Nucleated RBC % 0.0 Absolute Neutrophils 4.59 Absolute Lymphocytes 0.51 L Absolute Monocytes 0.20 Absolute Eosinophils 0.00 Absolute Basophils 0.05 Sodium Potassium Chloride Carbon Dioxide Anion Gap BUN Creatinine Est GFR (CKD-EPI 2020) Glucose Calcium Magnesium Procalcitonin 0.1 Ur Strep pneumoniae Ag Pending 01/20/23 06:06 WBC RBC Hgb Hct MCV MCH MCHC RDW Plt Count MPV Immature Gran % Neutrophils % Lymphocytes % Monocytes % Eosinophils % Basophils % Nucleated RBC % Absolute Neutrophils Absolute Lymphocytes Absolute Monocytes Absolute Eosinophils Absolute Basophils Sodium 144 Potassium 3.2 L Chloride 108 H Carbon Dioxide 22.2 Anion Gap 13.8 H BUN 9 Creatinine 0.6 Est GFR (CKD-EPI 2020) 95.31 Glucose 100 Calcium 7.8 L Magnesium 1.9 Procalcitonin Ur Strep pneumoniae Ag Preliminary micro results at discharge 01/17/23 19:00 Blood Culture - Preliminary Blood NO GROWTH 48 HOURS 01/17/23 18:37 Blood Culture - Preliminary Blood NO GROWTH 48 HOURS 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, liver and spine mets Benign paroxysmal positional vertigo of right ear (Acute) Blood in right ear canal (Acute) Hyperplastic colon polyp (Acute) Migraine headache (Chronic 12/25/11) Tobacco use disorder (Chronic 12/23/12) Tubular adenoma of colon (Chronic 04/03/16) Asymmetrical sensorineural hearing loss (Acute) Impairment of speech discrimination (Acute) Medical History 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 Repeat in 5 years. 02/[address] Chivo Nuñez 04/03/2016 tubular adenomas, Dr. Chivo Nuñez, repeat 5 yrs Trigger Finger release 09/2013 Family History Mother Personal history of malignant neoplasm BREAST Father Essential hypertension Personal history of malignant neoplasm LUNG/MELANOMA Heart disease Hyperlipidemia Sister No problems noted. Grandfather Personal history of malignant neoplasm STOMACH Grandfather Personal history of malignant neoplasm Grandmother No problems noted. Grandmother Personal history of malignant neoplasm Social History Smoking/Tobacco Use Status: Current every day Tobacco Type: cigarettes Years smoked: 55 Smoking risk assessment performed?: Yes Alcohol Intake: never Drug use: Never Substance use type: does not use Current gender identity: female Do you feel safe at home: Yes Do you feel safe in your relationship?: Yes Additional Social history: has alzheimers Female Reproductive History Menstrual Menopause type: natural History History 2 Para 2 Hx # Term Pregnancies Multiple births Hx # Pregnancies Ectopic pregnancies AB induced Hx Number of Living Children AB spontaneous Time Spent with Patient Time Spent with Patient: 45-69 minutes Time was spent: preparing to see the patient(eg.review tests), ordering medications,tests, procedures, referring, communicating with other health care center manager, indepentently interpreting results, counseling the patient and care coordination
[2023-01-20] MEDS: SUMAtriptan 50 MG TAB 100 MG PO (10:20)
--- NOTE | 2023-01-20 11:29 | CMDISCH_ITS ---
Date of service: 01/20/23 Time of Service: 11:29 LACE Index Scoring Tool Questions: Length of Stay (in days): 3 Was the patient admitted via the E.D.?: Yes Comorbidities: Chronic Pulmonary Disease and Any Tumor E.D. Visits: 2 Answers: Total Score: 13 Risk of Readmission: High Risk Care Management Discharge Plan Reason for Hospitalization: Acute hypoxemic respiratory failure Discharge Plan: Celi will discharge home via private vehicle with sister when medically ready per provider. She will follow up with community providers and her discharge plan of care as instructed. Patient/Family Education Needs: Review discharge instructions, limitations, medications and plan to follow up with community providers. Discuss ask me three. She has a she cares for that has Alzheimer's and she is anxious to go home. Per provider: She has improved enough, afebrile, oxygen levels 98- 100% on room air, speaking in full sentences, ambulating in the room and is able to take Levoquin orally. She is discharged to home with her son, stable. Prescriptions for Levofloxacin, guaifenesin, and benzonatate sent.
[2023-01-22 00:41] LABS: Streptococcus Pneumoniae Ag, U Negative (Negative)
== END 2023-01-20 11:10 | disposition home or self-care (01) | DRG 193 ==
LOC: ER 23:34 → MS 01-18 18:17
PROVIDERS: Internal Medicine; Nurse Practitioner Family; Admitting Provider Family Medicine; Emergency Provider Physician Assistant; PCP Family Medicine; Visit Provider Family Medicine
DX: J18.9 Pneumonia, unspecified organism; J96.01 Acute respiratory failure with hypoxia; J44.0 Chronic obstructive pulmonary disease with (acute) lower respiratory infection; E87.1 Hypo-osmolality and hyponatremia; C34.02 Malignant neoplasm of left main bronchus; C78.7 Secondary malignant neoplasm of liver and intrahepatic bile duct; C79.51 Secondary malignant neoplasm of bone; E83.42 Hypomagnesemia; Z79.899 Other long term (current) drug therapy; H81.11 Benign paroxysmal vertigo, right ear; G43.909 Migraine, unspecified, not intractable, without status migrainosus; F17.210 Nicotine dependence, cigarettes, uncomplicated
CPT/HCPCS: 36415; 71275; 80048; 80053; 82805; 84145; 85027; 87040; 87449; 87637; 93005; 94618; 96361; 96365; 96366; 96367; 96368; 99285; J1650; 81003; 81015; 83605; 83735; 84484; 85025; 87899; 93010; 94640; 94667; 94668; 94760; 99223; 99232; 99239; J1956; J3480; J3490; J7620

== ENCOUNTER 2023-01-31 00:26 | Outpatient (CLI) | payer MEDICARE, SELFPAY ==
--- NOTE | 2023-01-31 | DI.RAD_ITS ---
Exam(s) XR CHEST 2V PA LATERAL EXAM: XR CHEST 2V PA LATERAL CLINICAL HISTORY: PNEUMONIA, J18.9. TECHNIQUE: 2D digital imaging was performed. COMPARISON: CR XR CHEST 2V PA LATERAL from 04/06/2020 FINDINGS: 2 views: Heart size is normal. The mediastinum is not widened. There is significant infiltrate evident in the right lower lung field which appears to be predominant ly in the right middle lobe. Opposite-left lung is clear. There are no pleural effusions. IMPRESSION: Significant right middle lobe patchy infiltrate. No pleural effusions. DATA REPOSITORY: RADIATION DOSE DELIVERED:
== END 2023-01-31 00:46 ==
LOC: DI 00:27
PROVIDERS: PCP Family Medicine; Visit Provider Family Medicine
DX: J18.9 Pneumonia, unspecified organism (principal); R91.8 Other nonspecific abnormal finding of lung field
CPT/HCPCS: 71046

== ENCOUNTER 2023-02-05 04:25 | Outpatient (CLI) | payer MEDICARE, SELFPAY ==
[2023-02-05 10:06] LABS: Abs Immature Grans 0.13 10^3/uL (0.0-0.06); Absolute Basophil Count 0.08 10^3/uL (0.0-0.2); Absolute Eosinophil Count 0.02 10^3/uL (0.0-0.7); Absolute Lymphocyte Count 1.46 10^3/uL (1.2-3.4); Absolute Monocyte Count 0.83 10^3/uL (0.1-0.8); Basophils % 1.2; Eosinophils % 0.3; HCT 34.6 % (36.0-46.0); HGB 11.1 g/dL (11.2-15.7); Immature Grans % 1.9; Lymphocytes % 21.7; MCH 30.1 pg (27.0-33.0); MCHC 32.1 % (32.0-36.0); MCV 94 fL (80-95); MPV 7.8 fL (8.0-11.0); Monocytes % 12.4; Neutrophils % 62.5; Platelet Count 352 10^3/uL (130-400); RBC 3.69 10^6/uL (3.93-5.22); RDW 15.3 % (11.7-14.6); RDW-SD 53.1 fL; WBC 6.72 10^3/uL (4.4-10.8)
[2023-02-05 10:49] LABS: ALT 22 U/L (14-59); AST 19 U/L (15-37); Albumin 3.1 g/dL (3.4-5.0); Alkaline Phosphatase 92 U/L (46-116); BUN 22 mg/dL (7-18); Bilirubin, Total 0.3 mg/dL (0.2-1.0); CREATININE 0.7 mg/dL (0.55-1.02); Calcium 9.2 mg/dL (8.5-10.1); Chloride 108 mmol/L (98-107); Estimated GFR 91.83 (mL/min/1.73m2); Glucose 102 mg/dL (74-106); Magnesium 2.2 mg/dL (1.8-2.4); Potassium 4.4 mmol/L (3.5-5.1); Sodium 143 mmol/L (136-145); Total Protein 6.7 g/dL (6.4-8.2)
== END 2023-02-05 04:26 | disposition home or self-care (01) ==
LOC: LBO 04:26
PROVIDERS: PCP Family Medicine; Visit Provider Internal Medicine Medical Oncology
DX: C34.02 Malignant neoplasm of left main bronchus (principal)
CPT/HCPCS: 36415; 80053; 83735; 85025

== ENCOUNTER 2023-03-17 01:16 | Outpatient (CLI) | payer MEDICARE, SELFPAY ==
--- NOTE | 2023-03-17 07:45 | DI.CT_ITS ---
Exam(s) CT CHEST WO EXAM: CT CHEST WO CLINICAL HISTORY: F/U INFILTRATES, PULMONARY NODULES, R91.8. TECHNIQUE: Multi planar reconstructions were performed. CONTRAST MATERIAL: None COMPARISON: CT CT CHEST PE CTA from 01/17/2023 CR XR CHEST 2V PA LATERAL from 01/31/2023 FINDINGS: CHEST: LUNGS: When compared to the CT scan of 01/17/2023 there is been some improvement in the multiple nodu lar infiltrates in the right lower lobe although these have not yet resolved. There is no associated pleural effusion. Scarring in the anterior segment of the left upper lobe is unchanged. There is some persistent infil trate in the posterior basal segment of the left lower lobe, albeit slightly decreased in size. No p leural effusion on either side. No new endobronchial findings in the trachea and mainstem bronchi. There is no bronchiectasis. MEDIASTINUM: Although this is a non few study, it appears that the amount of adenopathy in the hilar regions and subcarinal region has decreased. No obvious axillary adenopathy CARDIAC: Heart size is normal. There is no pericardial effusion.Coronary artery calcification in the left coronary artery is noted. Caliber of the thoracic aorta is upper normal. VISUALIZED UPPER ABDOMEN:No adrenal masses. Partially visualized upper abdominal aorta is heavily ca lcified. No splenomegaly. Subtle abnormal hypodensities in the liver noted which are difficult to a ssess without IV contrast. OSSEOUS: No significant osseous lesions.No fractures.. IMPRESSION: 1. When compared to the prior CT scan of 01/17/2023 there has been some improvement in the multiple n odular infiltrates in the right lung although these have not yet completely resolved. Some persisten t infiltrate is also noted in the posterior basal segment of the left lower lobe, albeit slightly dec reased in size. 2. No pleural effusions. 3. There appears to have been some decrease in the amount of adenopathy in the hilar regions and subc arinal region. RADIATION DOSE DELIVERED: 404.59mGy.cm Total DLP DATA REPOSITORY: All CT scans at this facility are submitted to the National Radiology Data Registry (NRDR) Dose Index Registry (DIR) with the [employer] ([employer]). RADIATION OPTIMIZATION: All CT scans at this facility use at least one of these dose optimization te chniques: automated exposure control; mA and/or kV adjustment per patient size (includes targeted exa ms where dose is matched to clinical indication); or iterative reconstruction.
== END 2023-03-17 01:36 ==
LOC: DI 01:16
PROVIDERS: PCP Family Medicine; Visit Provider Student in an Organized Health Care Education/Training Program
DX: R91.8 Other nonspecific abnormal finding of lung field (principal)
CPT/HCPCS: 71250

== ENCOUNTER 2023-03-17 02:38 | Outpatient (CLI) | payer MEDICARE, SELFPAY ==
[2023-03-17 07:36] LABS: Abs Immature Grans 0.01 10^3/uL (0.0-0.06); Absolute Basophil Count 0.05 10^3/uL (0.0-0.2); Absolute Eosinophil Count 0.11 10^3/uL (0.0-0.7); Absolute Lymphocyte Count 1.22 10^3/uL (1.2-3.4); Absolute Monocyte Count 0.53 10^3/uL (0.1-0.8); Absolute Neutrophil Count 3.25 10^3/uL (1.2-6.7); Eosinophils % 2.1; HCT 38.6 % (36.0-46.0); HGB 12.6 g/dL (11.2-15.7); Immature Grans % 0.2; Lymphocytes % 23.6; MCH 30.3 pg (27.0-33.0); MCHC 32.6 % (32.0-36.0); MCV 93 fL (80-95); MPV 8.3 fL (8.0-11.0); Monocytes % 10.3; Neutrophils % 62.8; Platelet Count 164 10^3/uL (130-400); RBC 4.16 10^6/uL (3.93-5.22); RDW-SD 47.8 fL; WBC 5.17 10^3/uL (4.4-10.8)
[2023-03-17 07:57] LABS: ALT 49 U/L (14-59); AST 40 U/L (15-37); Albumin 3.6 g/dL (3.4-5.0); Alkaline Phosphatase 79 U/L (46-116); Anion Gap 8.2 mmol/L (3-11); BUN 21 mg/dL (7-18); Bilirubin, Total 0.5 mg/dL (0.2-1.0); CO2 28.8 mmol/L (21.0-32.0); CREATININE 0.8 mg/dL (0.55-1.02); Calcium 9.3 mg/dL (8.5-10.1); Chloride 106 mmol/L (98-107); Estimated GFR 78.24 (mL/min/1.73m2); Glucose 107 mg/dL (74-106); Magnesium 1.9 mg/dL (1.8-2.4); Potassium 3.9 mmol/L (3.5-5.1); Sodium 143 mmol/L (136-145); Total Protein 6.8 g/dL (6.4-8.2)
== END 2023-03-17 02:39 | disposition home or self-care (01) ==
LOC: LBO 02:38
PROVIDERS: PCP Family Medicine; Visit Provider Internal Medicine Medical Oncology
DX: C34.02 Malignant neoplasm of left main bronchus (principal)
CPT/HCPCS: 36415; 80053; 83735; 85025

== ENCOUNTER 2023-03-27 00:44 | Outpatient (CLI) | payer MEDICARE, SELFPAY ==
--- NOTE | 2023-03-27 15:45 | DI.MAMMO_ITS ---
Exam(s) MAMMO SCREENING EXAM: MAMMO SCREENING CLINICAL HISTORY: screening TECHNIQUE: Mammograms were interpreted according to the usual protocol including computer analysis w [employer] CAD system, tomosynthesis and C-view imaging. COMPARISON: 2012 through 2021 FINDINGS: The breasts are composed of scattered fibroglandular densities, Breast Density category B. No suspicious masses or suspicious microcalcifications are seen. Benign calcifications again noted i n the upper outer quadrant of the left breast. Biopsy marker clip noted in the right breast. No skin thickening or abnormal axillary lymph nodes are seen. There has been no significant change from prior exams. IMPRESSION: BI-RADS Cat 2 - Benign Findings Yearly screening mammography is recommended. Breast Density - Category B, scattered fibroglandular densities. A negative radiographic report should not delay biopsy if a dominant or clinically suspicious mass is present. Up to ten percent of cancers are not identified on mammography. A negative report may reinforce clinical impression. Adenosis and dense breasts may obscure an underlying neoplasm. False positive reports average 6 to 10%. Patient will receive a letter notifying them of these results.
== END 2023-03-27 01:04 ==
LOC: DI 00:44
PROVIDERS: PCP Family Medicine; Visit Provider Nurse Practitioner Women's Health
DX: Z12.31 Encounter for screening mammogram for malignant neoplasm of breast (principal)
CPT/HCPCS: 77063; 77067

== ENCOUNTER 2023-04-07 02:37 | Outpatient (CLI) | payer MEDICARE, SELFPAY ==
[2023-04-07 12:02] LABS: Abs Immature Grans 0.02 10^3/uL (0.0-0.06); Absolute Basophil Count 0.05 10^3/uL (0.0-0.2); Absolute Eosinophil Count 0.08 10^3/uL (0.0-0.7); Absolute Lymphocyte Count 1.31 10^3/uL (1.2-3.4); Absolute Monocyte Count 0.56 10^3/uL (0.1-0.8); Basophils % 0.9; Eosinophils % 1.5; HCT 40.9 % (36.0-46.0); HGB 13.2 g/dL (11.2-15.7); Immature Grans % 0.4; Lymphocytes % 24.6; MCH 29.9 pg (27.0-33.0); MCHC 32.3 % (32.0-36.0); MCV 93 fL (80-95); MPV 8.2 fL (8.0-11.0); Monocytes % 10.5; Neutrophils % 62.1; Platelet Count 172 10^3/uL (130-400); RBC 4.42 10^6/uL (3.93-5.22); RDW 12.8 % (11.7-14.6); RDW-SD 43.5 fL; WBC 5.32 10^3/uL (4.4-10.8)
[2023-04-07 12:25] LABS: ALT 87 U/L (14-59); AST 68 U/L (15-37); Albumin 3.3 g/dL (3.4-5.0); Alkaline Phosphatase 114 U/L (46-116); Anion Gap 5.8 mmol/L (3-11); BUN 19 mg/dL (7-18); Bilirubin, Total 0.4 mg/dL (0.2-1.0); CO2 27.2 mmol/L (21.0-32.0); CREATININE 0.8 mg/dL (0.55-1.02); Calcium 9.4 mg/dL (8.5-10.1); Chloride 107 mmol/L (98-107); Estimated GFR 77.75 (mL/min/1.73m2); Glucose 112 mg/dL (74-106); Potassium 4.1 mmol/L (3.5-5.1); Sodium 140 mmol/L (136-145); Total Protein 6.7 g/dL (6.4-8.2)
== END 2023-04-07 02:38 | disposition home or self-care (01) ==
LOC: LBO 02:37
PROVIDERS: PCP Family Medicine; Visit Provider Internal Medicine Medical Oncology
DX: C34.02 Malignant neoplasm of left main bronchus (principal)
CPT/HCPCS: 36415; 80053; 83735; 85025

== ENCOUNTER 2023-04-24 09:04 | Emergency (ER) | payer MEDICARE, SELFPAY ==
--- NOTE | 2023-04-24 09:04 | ED.GENADUL_ITS ---
Discharge Plan Disposition Patient Disposition: Home Discharge Details Clinical Impression: Proteinuria, Cancer of upper lobe of left lung Primary Care Provider: Addie Franks ED Provider: James Taylor Home Meds and New Rx's Prescriptions: Continued rosuvastatin 20 mg tablet 40 mg PO DAILY riboflavin (vitamin B2) 400 mg tablet 400 mg PO DAILY Bevespi Aerosphere 9-4.8 mcg HFA aerosol inhaler 2 puff inhalation BID Qty: 10.7 8RF sumatriptan succinate [Imitrex] 100 MG tablet 100 mg PO PRN PRN sertraline 50 MG tablet 50 mg PO DAILY cholecalciferol (vitamin D3) 1,000 UNITS tablet 2,000 units PO DAILY Proactive Cream 1 ea Topical BID Patient Comments: hold aspirin 81 mg tablet,delayed release (DR/EC) 81 mg PO DAILY benzonatate 200 mg Capsule 200 mg PO TID Qty: 30 0RF guaifenesin [Mucus Relief ER] 600 mg Tablet Extended Release 12hr 600 mg PO BID Qty: 30 0RF Discharge Instructions Additional Instructions: You were seen in the emergency department for your shortness of breath. Your CAT scan showed no sign of any blood clots. It does seem that your cancer has enlarged. The oncology team will arrange for appointment with you within the week. You were also found to have some protein in your urine for which you will follow-up with your primary care provider. Please return to the emergency department if you develop chest pain shortness of breath or any other concerns. Discharge Data Discharge Date/Time-TO BE ENTERED AT DEPARTURE: 04/24/23 14:28 Medical Decision Making This is an overall very well-appearing normothermic and not tachycardic 73-year-old female with malignant neoplasm on infusions of atezolizumab now in the emergency department with shortness of breath bloating and unintentional weight gain and shortness of breath with hoarse voice concerning for metastatic disease. Patient also has newly elevated blood pressure in the setting of her bloating and unintentional weight gain we will assess her urinalysis for proteinuria. Given her chest pain I am concerned about the possibility of PE so we will obtain ECG troponin and D-dimer as patient is low risk from a Wells criteria. My suspicion for ACS is low and patient has had ongoing symptoms for the past day. Given her lack of risk factors for atherosclerotic coronary disease will obtain serial troponin and if this is negative will be reassured against ACS. I considered mucositis given that the patient is on a checkpoint inhibitor however ever she has no signs of mucositis. Given current COVID outbreak we will swab for COVID. Will obtain CT soft tissue neck to assess for metastatic progression of her primary lung malignancy. Soft nontender abdomen so I am not concerned for intra-abdominal process. Uvula midline so I am not concerned for peritonsillar abscess. Good range of motion in neck so I am not concerned for retropharyngeal abscess. No wheezes to suggest COPD exacerbation. No pain out of proportion to suggest necrotizing soft tissue infection. Will reassess following labs and imaging and ECG. No crackles in lungs nor history of CHF to suggest heart exacerbation of heart failure. I considered CVA however the patient is neurologically intact with no focal neurological deficits so I do not feel that she is a tPA candidate. No nuchal rigidity to suggest meningitis so I do not feel that the patient requires a lumbar puncture. No tongue biting nor tonic-clonic activity so my suspicion is exceedingly low for seizures so I do not feel that the patient requires an EEG. 10:15 AM CBC with no anemia thrombocytopenia nor leukocytosis. Mild hypernatremia. Normal troponin. Normal magnesium. Given mild hyponatremia and elevated BUN we will provide a 500 cc crystalloid bolus. 10:45 AM Negative COVID RSV and influenza swab. Urinalysis with trace ketonuria and 30mg/dL proteinuria. This is similar to prior. 11 AM D-dimer returned floridly positive for which patient will undergo CT angiogram of her chest along with soft tissue neck and dry head. 12:54 PM I spoke to Dr. Lyndsey Silva from pulmonology at [facility] [place] who will follow up with me. 1:35 PM I spoke again with pulmonology from [facility] [place]. They advised discussing with oncology for possible radiation. 1:56 PM I spoke with Dr. Lester from radiology who advised that I speak with radiation oncology as patient may need urgent radiation. 2:10 PM I spoke with Dr. Tk Luna from radiation oncology at [facility] [place]. He did not feel that the patient required emergent or even urgent radiation. I asked health reverse unit operator fisherman Stella to have the patient seen locally by oncology next week. I will discuss these findings with her. I also requested that the patient be seen within the week by her primary care provider in the setting of her proteinuria. 04/25 At the end of my shift I received a secure chat message in the [employer] EMR from Dr. Lester at [facility] [place]. She reported that her attending felt that the patient warranted inpatient treatment. I advised that the patient had been discharged. She reported that her attending would call the patient to discuss further. Chronic conditions affecting the care of the patient: Malignant neoplasm of left lung History obtained from an outside historian: N/A External record review: [facility] EMR Diagnostic interpretations performed by me: [Per my independent interpretation chest x-ray shows:] Left hilar mass. No acute cardiopulmonary process. Per my independent interpretation EKG shows: Narrow complex normal sinus rhythm at a rate of 75. Normal axis. Intervals within normal limits. T wave flattening in aVL. Poor R wave progression. No ST segment elevations. Mild ST segment depressions in leads I and II and aVF. Overall appears very similar to prior dated earlier this year with the exception of new ST segment flattening in aVL. Medications: Normal saline Social determinants of health affecting disposition: N/A Management discussed with: Pulmonology at [facility] [place] and oncology at [facility] [place] and radiation oncology at [facility] [place]. Treatment/interventions considered: Hospitalization but deferred given reassuring room air saturations Response to therapies provided: N/A HPI General Date/Time Provider Initiated Documentation: 04/24/23 09:04 . HPI Narrative: This is a 73-year-old female with small cell lung cancer on outpatient checkpoint inhibitor following palliative chemotherapy now with shortness of breath unintentional weight gain and hoarse voice. Patient also notes that she feels more confused and has had an unintentional approximately 15 pound weight gain with fatigue over the past 5 days. She is also endorses a central chest discomfort for the past several days. She describes her chest discomfort as a tightness with deep breath. It does not radiate. She denies exacerbators alleviators. She has had no abdominal pain diarrhea nor vomiting. She reports that her last infusion was 2 to 3 weeks ago. She has felt more fatigued. She denies any fevers. She has never had a PE nor a DVT. She denies leg swelling. She does note some swelling in her hands. She does not had a sore throat. She has not had any neck stiffness. She denies dysuria and frequency. Related Data Home Medications Medication Instructions Recorded Confirmed cholecalciferol (vitamin D3) 25 2,000 units PO DAILY 03/12/14 04/24/23 mcg (1,000 unit) tablet sertraline 50 mg tablet 50 mg PO DAILY 03/12/14 04/24/23 sumatriptan succinate 100 mg 100 mg PO PRN PRN 03/12/14 04/24/23 tablet (Imitrex) Proactive Cream 1 ea topical BID 07/03/17 04/24/23 rosuvastatin 20 mg tablet 40 mg PO DAILY 01/25/19 04/24/23 riboflavin (vitamin B2) 400 mg 400 mg PO DAILY 08/09/20 04/24/23 tablet aspirin 81 mg tablet,delayed 81 mg PO DAILY 01/18/23 04/24/23 release benzonatate 200 mg capsule 200 mg PO TID #30 caps 01/20/23 04/24/23 guaifenesin 600 mg tablet, 600 mg PO BID #30 tabs 01/20/23 04/24/23 extended release 12 hr (Mucus Relief ER) glycopyrrolate 9 mcg-formoterol 2 puff inhalation BID #10.7 grams 02/18/23 04/24/23 4.8 mcg HFA aerosol inhaler (Bevespi Aerosphere) Previous Rx's Medication Instructions Recorded benzonatate 200 mg capsule 200 mg PO TID #30 caps 01/20/23 guaifenesin 600 mg tablet, 600 mg PO BID #30 tabs 01/20/23 extended release 12 hr (Mucus Relief ER) glycopyrrolate 9 mcg-formoterol 2 puff inhalation BID #10.7 grams 02/18/23 4.8 mcg HFA aerosol inhaler (Bevespi Aerosphere) Allergies Allergy/AdvReac Type Severity Reaction Status Date / Time isotretinoin [From Accutane] Allergy Intermediate Hives Verified 04/24/23 09:12 latex Allergy Intermediate Skin Rash Verified 04/24/23 09:12 Tetracyclines Allergy Intermediate Hives Verified 04/24/23 09:12 minocycline Allergy Verified 04/24/23 09:12 General SADA: 3 PFSH All Active Problems (Updated 04/24/23 @ 14:16 by James Taylor MD) Proteinuria (Acute) Cancer of upper lobe of left lung (Acute) Acute hypoxemic respiratory failure (Acute) Hypomagnesemia (Acute) Hyponatremia (Acute) Pneumonia (Acute) COPD (chronic obstructive pulmonary disease) (Chronic) 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, liver and spine mets Benign paroxysmal positional vertigo of right ear (Acute) Blood in right ear canal (Acute) Hyperplastic colon polyp (Acute) Migraine headache (Chronic 12/25/11) Tobacco use disorder (Chronic 12/23/12) Tubular adenoma of colon (Chronic 04/03/16) Asymmetrical sensorineural hearing loss (Acute) Impairment of speech discrimination (Acute) Medical History 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 Repeat in 5 years. 02/[address] Chivo Nuñez 04/03/2016 tubular adenomas, Dr. Chivo Nuñez, repeat 5 yrs Trigger Finger release 09/2013 Family History Mother Personal history of malignant neoplasm BREAST Father Essential hypertension Personal history of malignant neoplasm LUNG/MELANOMA Heart disease Hyperlipidemia Sister No problems noted. Grandfather Personal history of malignant neoplasm STOMACH Grandfather Personal history of malignant neoplasm Grandmother No problems noted. Grandmother Personal history of malignant neoplasm Social History Smoking/Tobacco Use Status: Former Tobacco Use Smoking risk assessment performed?: Yes Alcohol Intake: never Drug use: Never Substance use type: does not use Current gender identity: female Do you feel safe at home: Yes Do you feel safe in your relationship?: Yes Additional Social history: has alzheimers Female Reproductive History Menstrual Menopause type: natural History History 2 Para 2 Hx # Term Pregnancies Multiple births Hx # Pregnancies Ectopic pregnancies AB induced Hx Number of Living Children AB spontaneous Exam Narrative Exam Narrative: General: Well-appearing in no acute distress speaking in complete sentences. Head: Normocephalic, atraumatic. Eye: Extraocular eye movements intact. No conjunctival injection. No scleral icterus. Ear, nose, mouth, throat: Grossly normal inspection. Hoarse voice, handling s ecretions normally. Uvula midline. No signs of mucositis. Good range of motion in neck. Neck: Trachea midline. Cardiovascular: Well-perfused distal extremities. Regular rate and rhythm. No significant lower extremity pitting edema. Respiratory: Nonlabored respiration. Clear lungs bilaterally. Gastrointestinal: Nondistended abdomen. Soft nontender. Musculoskeletal: No pitting lower extremity edema. Moving all 4 extremities spontaneously. Mildly swollen hands. Skin: Normal for age and race, grossly normal temperature and turgor. No acute rash. Neurologic: Alert and appropriate, no apparent acute deficits. GCS 15. 5 out of 5 bilateral upper and lower extremity strength. No dysmetria. No pronator drift. Psychiatric: Mood and manner are appropriate. Grooming and personal hygiene are appropriate.
[2023-04-24 09:07] VITALS: BP 151/67; PULSE 82; RESP 24; TEMP 36.5; O2SAT 97
--- NOTE | 2023-04-24 09:15 | DI.RAD_ITS ---
Exam(s) XR PORTABLE CHEST AP EXAM: XR PORTABLE CHEST AP CLINICAL HISTORY: Shortness of breath. TECHNIQUE: 2D digital imaging was performed. COMPARISON: CT CT CHEST W from 10/28/2022 CR XR CHEST 2V PA LATERAL from 01/31/[address] CHEST WO from 03/17/2023 FINDINGS: Single AP portable view. Heart size is upper normal. Previously present right lung infiltrates resolved. Right lung is presently clear. However, on the left side there is now a mass density in the left hilar region which most probably im plies recurrence of neoplasm which was evident on CT scan of 10/28/2022. No pleural effusions. IMPRESSION: Left hilar mass.Consistent with probable recurrence of neoplastic disease which was evident at this l ocation on a prior CT scan of October 2022. No pleural effusions DATA REPOSITORY: RADIATION DOSE DELIVERED:
--- NOTE | 2023-04-24 09:15 | RT.EKG_ITS ---
APPROVED REPORT Exam: Resting ECG Reason for Exam: Shortness of breath Patient Location: E HR:75 bpm ECG Measurements Heart Rate 75 AXIS OH 136 P 63 QRSd 84 QRS 67 QT 369 T 55 QTc 412 Conclusion Sinus rhythm...normal P axis, V-rate 60- 99 Anteroseptal infarct, age indeterminate...Q >35mS, T neg, V1-V2 Narrow complex normal sinus rhythm at a rate of 75. Normal axis. Intervals within normal limits. T wave flattening in aVL. Poor R wave progression. No ST segment elevations. Mild ST segment depres sions in leads I and II and aVF. Overall appears very similar to prior dated earlier this year with the exception of new ST segment flattening in aVL.
[2023-04-24 09:42] LABS: Absolute Basophil Count 0.03 10^3/uL (0.0-0.2); Absolute Lymphocyte Count 0.77 10^3/uL (1.2-3.4); Absolute Monocyte Count 0.79 10^3/uL (0.1-0.8); Absolute Neutrophil Count 7.55 10^3/uL (1.2-6.7); Basophils % 0.3; HCT 42.7 % (36.0-46.0); HGB 14.1 g/dL (11.2-15.7); Immature Grans % 1.1; Lymphocytes % 8.3; MCH 29.7 pg (27.0-33.0); MCV 90 fL (80-95); MPV 8.7 fL (8.0-11.0); Monocytes % 8.5; Neutrophils % 81.8; Platelet Count 175 10^3/uL (130-400); RBC 4.74 10^6/uL (3.93-5.22); RDW 13.2 % (11.7-14.6); RDW-SD 43.6 fL; WBC 9.24 10^3/uL (4.4-10.8)
[2023-04-24 10:00] LABS: Anion Gap 11.3 mmol/L (3-11); BUN 24 mg/dL (7-18); CO2 25.7 mmol/L (21.0-32.0); CREATININE 0.8 mg/dL (0.55-1.02); Chloride 109 mmol/L (98-107); Estimated GFR 77.75 (mL/min/1.73m2); Glucose 149 mg/dL (74-106); Magnesium 2.1 mg/dL (1.8-2.4); Potassium 3.5 mmol/L (3.5-5.1); Sodium 146 mmol/L (136-145); Troponin I < 50 ng/L (<or=60)
[2023-04-24 10:17] LABS: COVID-19 PCR Negative (Negative); Influenza A PCR Negative (Negative); Influenza B PCR Negative (Negative); RSV PCR Negative (Negative)
[2023-04-24 10:36] LABS: Source Nasopharynx
[2023-04-24 10:38] LABS: Bilirubin Small (Negative); Blood Negative (Negative); Clarity Clear (Clear); Glucose Negative (Negative); Ketones Trace mg/dL (Negative); Leukocyte Esterase Negative (Negative); Nitrite Negative (Negative); Specific Gravity 1.025 (1.005-1.025)
[2023-04-24] MEDS: Normal Saline 500 ML IV (10:40)
[2023-04-24 10:49] LABS: Bacteria Negative HPF (Negative); C & S Indicated? No; Casts Negative LPF (Negative); Crystals Mod Calcium Oxalate HPF (Negative); Epithelial Cells Moderate HPF (Negative); Mucus Moderate (Negative); WBC 0-2 HPF (0-5)
[2023-04-24 10:58] LABS: D-Dimer 3149 ng/mlFEU (<500)
--- NOTE | 2023-04-24 11:00 | DI.CT_ITS ---
Exam(s) CT NECK W EXAM: CT NECK W INDICATION: Hoarse voice. COMPARISON: CT CT CHEST PE CTA from 04/24/2023 TECHNIQUE: FINDINGS: VISUALIZED PARANASAL SINUSES: Mucoperiosteal thickening. Tiny fluid level in the right maxillary sin us. Other paranasal sinuses are clear. NASOPHARYNX: Unremarkable ORODENTAL: Unremarkable. OROPHARYNX: Unremarkable. No masses evident. HYPOPHARYNX: Unremarkable. Valleculae and epiglottis and aryepiglottic folds appear normal. VOCAL CORDS: Unremarkable. No masses evident. Subglottic airway appears unremarkable. THYROID GLAND: Heterogeneous density both lobes. Small nodules bilaterally. SALIVARY GLANDS: Unremarkable. No significant findings in the parotid and submandibular glands. LYMPH NODES: There is no adenopathy evident in the neck and supraclavicular regions. OTHER: Calcified plaque noted at the level both carotid bulbs. Significant stenosis bilaterally. No dissection. VISUALIZED LUNG APICES: There is a malignant-appearing mass in the left side of the mediastinum left retrosternal region. No supraclavicular adenopathy nor adenopathy higher up in the neck. IMPRESSION: 1. Main finding there is in the chest where there is a malignant-appearing for prominent mass in the central-left mediastinum corresponding to what is seen on today's chest x-ray. 2. There are no masses nor obvious lymphadenopathy in the soft tissues of the neck. 3. Heavily calcified plaque noted at both carotid bifurcations consistent with significant stenosis bilaterally at these levels. If clinically indicated can be further study with Doppler imaging. RADIATION DOSE DELIVERED: Total DLP DATA REPOSITORY: All CT scans at this facility are submitted to the National Radiology Data Registry (NRDR) Dose Index Registry (DIR) with the [employer] (ACR). RADIATION OPTIMIZATION: All CT scans at this facility use at least one of these dose optimization te chniques: automated exposure control; mA and/or kV adjustment per patient size (includes targeted exa ms where dose is matched to clinical indication); or iterative reconstruction.
--- NOTE | 2023-04-24 11:00 | DI.CT_ITS ---
Exam(s) CT CHEST PE CTA EXAM: CT CHEST PE CTA CLINICAL HISTORY: Positive D-dimer. TECHNIQUE: Imaging Protocol: CT angiography of the chest was performed using pulmonary embolus charito col. Multi planar reconstructions were performed. CONTRAST MATERIAL: Intravenous: Omnipaque 350 Contrast volume: 100 cc COMPARISON: CT CT CHEST WO from 03/17/2023 FINDINGS: CHEST: PULMONARY ARTERIES: There has been significant recent increase in size of left hilar and anterior left mediastinal mass, particularly when compared to the recent CT scan of March 17, 2023. This large malignant-appearing agg ressive mass encircles the left main pulmonary artery and upper lobe pulmonary arteries are encased a nd occluded by this mass.. There is some encasement of the proximal aspect of the left lower lobe pul monary arterial tree but without inclusion and no intraluminal filling defects to suggest intralumina l acute pulmonary emboli. No emboli on the right side. LUNGS: There has been some mild improvement in the lower right lung infiltrates when compared to CT s can of 03/17/2023. Pleural based infiltrate in the posterior basal segment of the left lower lobe hendricks s slightly decreased in size. However, the main finding here is is above described large left hilar and mediastinal rest of appearing mass which has dramatically increased in size from the prior CT sca n of March 17, 2023.. There are no pleural effusions. MEDIASTINUM: Large left hilar and mediastinal mass which extends to the left retrosternal region and through the aortopulmonic window to the pretracheal region. There is no adenopathy in the right hilu m and subcarinal region. Visualized thyroid unremarkable.The mass does not reach the right-side of t he mediastinum and there is no encasement of the SVC. CARDIAC: Heart size is normal. No pericardial effusion.Caliber of the thoracic aorta is within george l limits. No dissection. There is no significant shift of the interventricular septum. PARTIALLY VISUALIZED UPPERMOST ABDOMEN: Focal hypodensities in the liver difficult to assess on arter ial phase study but may represent metastatic disease. No large adrenal masses. No splenomegaly. OSSEOUS: No significant osseous lesions.. IMPRESSION: 1. Although there are no obvious intraluminal pulmonary emboli, there is a large malignant-appearing aggressive mass in the left hilum and mediastinum which in cases the left main pulmonary artery and a lso in cases and occludes left upper lobe pulmonary arteries..No evidence of pulmonary infarct in the upper lobe. Small area of infiltrate in the left upper lobe is unchanged from 03/17/2023. There ar e no pleural effusions. 2. Other findings as above. Report called by myself to ER physician. RADIATION DOSE DELIVERED: 643.03 mGy.cm Total DLP DATA REPOSITORY: All CT scans at this facility are submitted to the National Radiology Data Registry (NRDR) Dose Index Registry (DIR) with the [employer] (ACR). RADIATION OPTIMIZATION: All CT scans at this facility use at least one of these dose optimization te chniques: automated exposure control; mA and/or kV adjustment per patient size (includes targeted exa ms where dose is matched to clinical indication); or iterative reconstruction.
--- NOTE | 2023-04-24 11:00 | DI.CT_ITS ---
Exam(s) CT HEAD WO EXAM: CT HEAD WO CLINICAL HISTORY: Confusion malignancy. TECHNIQUE: Imaging Protocol: Axial computed tomography images with coronal and sagittal reformatted images were created and reviewed COMPARISON: CT CT BRAIN NECK CTA from 10/28/2022 FINDINGS: There are no skull fractures. There is no fluid in the visualized paranasal sinuses. There is no evidence of intracranial hemorrhage, mass effect, or shift of midline structures. There are no extra-axial fluid collections. The ventricles are not enlarged or shifted and there is no blo od within the ventricular system nor within the basal cisterns. IMPRESSION: No acute intracranial findings on this noninfused CT scan of the brain. RADIATION DOSE DELIVERED: 1,613.06mGy.cm Total DLP DATA REPOSITORY: All CT scans at this facility are submitted to the National Radiology Data Registry (NRDR) Dose Index Registry (DIR) with the [employer] (ACR). RADIATION OPTIMIZATION: All CT scans at this facility use at least one of these dose optimization te chniques: automated exposure control; mA and/or kV adjustment per patient size (includes targeted exa ms where dose is matched to clinical indication); or iterative reconstruction.
[2023-04-24 11:16] VITALS: BP 166/74; PULSE 65; RESP 15; O2SAT 100
[2023-04-24] MEDS: Omnipaque 350 MG/ML 100 ML BTL IJ (11:27)
[2023-04-24] MEDS: Normal Saline - Diluent 50 ML VIAL IJ (11:27)
[2023-04-24 13:51] VITALS: BP 158/92; PULSE 81; RESP 15; O2SAT 98
--- NOTE | 2023-04-24 14:18 | NUR.NOTE ---
Nursing Note: referral to oncology
--- NOTE | 2023-04-24 14:18 | NUR.NOTE ---
Nursing Note: referral to primary care
--- NOTE | 2023-04-26 09:05 | NUR.NOTE ---
Nursing Note: Accessed pt chart to print note for reference for provider. Pt called asking about bloating and if there is a medication to relieve it. She stated it was part of her visit and has questions if the bloating is [id number] on her vessels/ateries. Is worried.
== END 2023-04-24 14:28 | disposition home or self-care (01) ==
PROVIDERS: Emergency Provider Emergency Medicine; PCP Family Medicine
DX: R80.9 Proteinuria, unspecified (principal); C34.12 Malignant neoplasm of upper lobe, left bronchus or lung; R06.02 Shortness of breath
CPT/HCPCS: 36415; 70491; 71275; 80048; 87637; 93005; 96360; 99285; 70450; 71045; 81003; 81015; 83735; 84484; 85025; 85379; 93010; 99284; J3490

== ENCOUNTER 2023-04-26 18:05 | Emergency (ER) | payer MEDICARE, SELFPAY ==
--- NOTE | 2023-04-26 18:00 | RT.EKG_ITS ---
APPROVED REPORT Exam: Resting ECG Reason for Exam: sob Patient Location: E HR:86 bpm ECG Measurements Heart Rate 86 AXIS KS 131 P 77 QRSd 87 QRS 88 QT 361 T 64 QTc 431 Conclusion Sinus rhythm...normal P axis, V-rate 60- 99 sinus rhythm, normal axis, normal intervals, non ischemic
[2023-04-26 18:09] VITALS: BP 128/69; PULSE 91; RESP 18; TEMP 37.3; O2SAT 93
--- NOTE | 2023-04-26 18:37 | ED.GENADUL_ITS ---
Discharge Plan Disposition Patient Disposition: Home Discharge Details Chief Complaint: SOB Clinical Impression: Edema Primary Care Provider: Addie Franks ED Provider: Akash Almaguer Home Meds and New Rx's Prescriptions: No Action rosuvastatin 20 mg tablet 40 mg PO DAILY riboflavin (vitamin B2) 400 mg tablet 400 mg PO DAILY Bevespi Aerosphere 9-4.8 mcg HFA aerosol inhaler 2 puff inhalation BID Qty: 10.7 8RF sumatriptan succinate [Imitrex] 100 MG tablet 100 mg PO PRN PRN sertraline 50 MG tablet 50 mg PO DAILY cholecalciferol (vitamin D3) 1,000 UNITS tablet 2,000 units PO DAILY Proactive Cream 1 ea Topical BID Patient Comments: hold aspirin 81 mg tablet,delayed release (DR/EC) 81 mg PO DAILY benzonatate 200 mg Capsule 200 mg PO TID Qty: 30 0RF guaifenesin [Mucus Relief ER] 600 mg Tablet Extended Release 12hr 600 mg PO BID Qty: 30 0RF Discharge Instructions Instructions: Edema (ED) Additional Instructions: Please immediately return to the emergency department for any worsening symptoms such as rapidly developing swelling, worsening shortness of breath fevers chills or other abnormal symptomatology. Please follow-up closely with your primary oncology team and primary care physician Medical Decision Making 73-year-old female active lung cancer currently undergoing chemotherapy presents with sensation of puffiness/fullness to face and upper extremities over the past couple of weeks, baseline respiratory symptoms stable per patient, patient is afebrile nontoxic speaking full sentences tongue secretions moving good air lungs clear bilaterally. Possible mild subcutaneous edema to face and bilateral upper extremities no peripheral edema to lower extremities. Consider evidence of delayed lymphatic drainage given active CA and chemotherapy although patient does not appear to be experiencing acute severe superior vena cava syndrome, recent evaluation in ED negative for PE or pneumonia or pneumothorax or infection. Patient has close follow-up with oncology team early next week. They are considering adding radiation therapy to her regimen. Given home care instructions and strict return precautions for any worsening symptoms. HPI General Date/Time Provider Initiated Documentation: 04/26/23 18:07 . HPI Narrative: 73-year-old female active lung cancer currently undergoing chemotherapy presents with swelling and puffiness to face and arms; patient feels as if she is retaining fluid. Patient describes her respiratory symptoms as stable compared to the last couple of weeks. No fevers chills nausea or vomiting. Patient has follow-up early next week with her oncology team Related Data Home Medications Medication Instructions Recorded Confirmed cholecalciferol (vitamin D3) 25 2,000 units PO DAILY 03/12/14 04/26/23 mcg (1,000 unit) tablet sertraline 50 mg tablet 50 mg PO DAILY 03/12/14 04/26/23 sumatriptan succinate 100 mg 100 mg PO PRN PRN 03/12/14 04/26/23 tablet (Imitrex) Proactive Cream 1 ea topical BID 07/03/17 04/26/23 rosuvastatin 20 mg tablet 40 mg PO DAILY 01/25/19 04/26/23 riboflavin (vitamin B2) 400 mg 400 mg PO DAILY 08/09/20 04/26/23 tablet aspirin 81 mg tablet,delayed 81 mg PO DAILY 01/18/23 04/26/23 release benzonatate 200 mg capsule 200 mg PO TID #30 caps 01/20/23 04/26/23 guaifenesin 600 mg tablet, 600 mg PO BID #30 tabs 01/20/23 04/26/23 extended release 12 hr (Mucus Relief ER) glycopyrrolate 9 mcg-formoterol 2 puff inhalation BID #10.7 grams 02/18/23 04/26/23 4.8 mcg HFA aerosol inhaler (Bevespi Aerosphere) Previous Rx's Medication Instructions Recorded benzonatate 200 mg capsule 200 mg PO TID #30 caps 01/20/23 guaifenesin 600 mg tablet, 600 mg PO BID #30 tabs 01/20/23 extended release 12 hr (Mucus Relief ER) glycopyrrolate 9 mcg-formoterol 2 puff inhalation BID #10.7 grams 02/18/23 4.8 mcg HFA aerosol inhaler (Bevespi Aerosphere) Allergies Allergy/AdvReac Type Severity Reaction Status Date / Time isotretinoin [From Accutane] Allergy Intermediate Hives Verified 04/24/23 09:12 latex Allergy Intermediate Skin Rash Verified 04/24/23 09:12 Tetracyclines Allergy Intermediate Hives Verified 04/24/23 09:12 minocycline Allergy Verified 04/24/23 09:12 General Stated Complaint: SOB SADA: 3 Review of Systems Narrative: Review of Systems Constitutional: negative Eyes: negative ENT: negative Cardiovascular: negative Respiratory: negative Gastrointestinal: negative : negative Musculoskeletal: Swelling Skin: negative Neurologic: negative Psych: negative PFSH All Active Problems (Updated 04/26/23 @ 18:46 by Akash Almaguer MD) Proteinuria (Acute) Cancer of upper lobe of left lung (Acute) Edema (Acute) Acute hypoxemic respiratory failure (Acute) Hypomagnesemia (Acute) Hyponatremia (Acute) Pneumonia (Acute) COPD (chronic obstructive pulmonary disease) (Chronic) 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, liver and spine mets Benign paroxysmal positional vertigo of right ear (Acute) Blood in right ear canal (Acute) Hyperplastic colon polyp (Acute) Migraine headache (Chronic 12/25/11) Tobacco use disorder (Chronic 12/23/12) Tubular adenoma of colon (Chronic 04/03/16) Asymmetrical sensorineural hearing loss (Acute) Impairment of speech discrimination (Acute) Medical History 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 Repeat in 5 years. 02/[address] Chivo Nuñez 04/03/2016 tubular adenomas, Dr. Chivo Nuñez, repeat 5 yrs Trigger Finger release 09/2013 Family History Mother Personal history of malignant neoplasm BREAST Father Essential hypertension Personal history of malignant neoplasm LUNG/MELANOMA Heart disease Hyperlipidemia Sister No problems noted. Grandfather Personal history of malignant neoplasm STOMACH Grandfather Personal history of malignant neoplasm Grandmother No problems noted. Grandmother Personal history of malignant neoplasm Social History Smoking/Tobacco Use Status: Former Tobacco Use Smoking risk assessment performed?: Yes Alcohol Intake: never Drug use: Never Substance use type: does not use Current gender identity: female Do you feel safe at home: Yes Do you feel safe in your relationship?: Yes Additional Social history: has alzheimers Female Reproductive History Menstrual Menopause type: natural History History 2 Para 2 Hx # Term Pregnancies Multiple births Hx # Pregnancies Ectopic pregnancies AB induced Hx Number of Living Children AB spontaneous Exam Narrative Exam Narrative: Physical Examination General: alert, awake, cooperative, resting comfortably, no acute distress HEENT: normocephalic, atraumatic; PERRL, EOM intact, conjunctiva normal; no nasal discharge; moist mucous membranes, oral and pharyngeal mucosa normal, tolerating secretions Neck: supple, trachea midline; full ROM; normal carotid auscultation Chest: normal to inspection Respiratory: normal respiratory effort, speaking in full sentences, clear to auscultation, no wheezing, rales or rhonchi Cardiac: regular rate, regular rhythm, S1S2 intact, no murmurs rubs or gallops; equal pulses bilaterally GI: abdomen soft, non-tender, non-distended; no palpable mass or hepatosplenomegaly Skin: Consider mild fullness/minimal edema to upper extremities and face, no npitting Neuro: AAOx3, normal speech, moving all extremities Extremities: No peripheral edema Psych: Appropriate mood and affect Course Vital Signs Vital signs: Vital Signs Temperature 37.3 C 04/26/23 18:09 Pulse 91 H 04/26/23 18:09 Respiratory Rate 18 04/26/23 18:09 Blood Pressure 128/69 04/26/23 18:09 Pulse Oximetry 93 04/26/23 18:09 Temperature 37.3 C 04/26/23 18:09 Temperature Source Oral 04/26/23 18:09 Pulse 91 H 04/26/23 18:09 Respiratory Rate 18 04/26/23 18:09 Respiratory Effort Normal, Non-Labored, Short of Breath 04/26/23 18:32 Respiratory Depth Normal 04/26/23 18:32 Respiratory Pattern Normal 04/26/23 18:32 Blood Pressure 128/69 04/26/23 18:09 Blood Pressure Position Sitting 04/26/23 18:09 Pulse Oximetry 93 04/26/23 18:09 Oxygen Delivery Method Room Air 04/26/23 18:09 Oxygen Flow Rate 0 04/26/23 18:09
== END 2023-04-26 18:52 | disposition home or self-care (01) ==
PROVIDERS: Emergency Provider Emergency Medicine; PCP Family Medicine
DX: R06.02 Shortness of breath (principal); R60.9 Edema, unspecified; C34.11 Malignant neoplasm of upper lobe, right bronchus or lung; Z79.899 Other long term (current) drug therapy; Z92.21 Personal history of antineoplastic chemotherapy; Z87.891 Personal history of nicotine dependence
CPT/HCPCS: 93005; 99283; 93010; 99282

== ENCOUNTER 2023-05-14 04:04 | Outpatient (CLI) | payer MEDICARE, SELFPAY ==
[2023-05-14 07:42] LABS: Absolute Basophil Count 0.08 10^3/uL (0.0-0.2); Absolute Eosinophil Count 0.07 10^3/uL (0.0-0.7); Absolute Monocyte Count 0.59 10^3/uL (0.1-0.8); Absolute Neutrophil Count 7.64 10^3/uL (1.2-6.7); Basophils % 0.9; Eosinophils % 0.8; HCT 49.3 % (36.0-46.0); HGB 16.1 g/dL (11.2-15.7); Immature Grans % 1.1; Lymphocytes % 3.4; MCH 29.4 pg (27.0-33.0); MCHC 32.7 % (32.0-36.0); MCV 90 fL (80-95); MPV 9.6 fL (8.0-11.0); Monocytes % 6.7; Neutrophils % 87.1; Platelet Count 114 10^3/uL (130-400); RBC 5.48 10^6/uL (3.93-5.22); RDW 15.2 % (11.7-14.6); RDW-SD 49.5 fL; WBC 8.78 10^3/uL (4.4-10.8)
[2023-05-14 07:59] LABS: ALT 210 U/L (14-59); AST 169 U/L (15-37); Albumin 2.6 g/dL (3.4-5.0); Alkaline Phosphatase 383 U/L (46-116); Anion Gap 9.3 mmol/L (3-11); BUN 30 mg/dL (7-18); Bilirubin, Total 2.7 mg/dL (0.2-1.0); CO2 30.7 mmol/L (21.0-32.0); CREATININE 1.1 mg/dL (0.55-1.02); Chloride 106 mmol/L (98-107); Estimated GFR 53.06 (mL/min/1.73m2); Glucose 184 mg/dL (74-106); Magnesium 2.5 mg/dL (1.8-2.4); Potassium 3.4 mmol/L (3.5-5.1); Sodium 146 mmol/L (136-145); Total Protein 5.9 g/dL (6.4-8.2)
== END 2023-05-14 04:05 | disposition home or self-care (01) ==
LOC: LBO 04:04
PROVIDERS: PCP Family Medicine; Visit Provider Internal Medicine Medical Oncology
DX: C34.02 Malignant neoplasm of left main bronchus (principal)
CPT/HCPCS: 36415; 80053; 83735; 85025

== ENCOUNTER 2023-05-17 15:59 | Inpatient (IN) | payer MEDICARE, SELFPAY ==
[2023-05-17 16:03] VITALS: RESP 20; TEMP 37.3
[2023-05-17 16:07] VITALS: O2SAT 96
[2023-05-17 16:42] VITALS: RESP 15
[2023-05-17] MEDS: Magic Mouthwash 119 ML BTL 10 ML PO (16:45)
--- NOTE | 2023-05-17 16:46 | W.PM.HP.N ---
Date of service: 05/17/23 Time of Service: 16:46 Assessment and Plan Assessment and plan (1) Small cell lung cancer: Status: Chronic Assessment and plan: Patient on palliative treatment at this point and does not wish for any further care. She will be admitted for comfort measures for end-of-life care. Comfort orders placed plan of care discussed with Dr. Cuadra History of Present Illness History of Present Illness Chief Complaint: dehydration, fatigue Narrative: This is a 73-year-old female patient with small cell lung cancer left history of tobacco use COPD who has been on outpatient checkpoint inhibitors following palliative chemotherapy recently started on radiation. This her third visit in 2 weeks for shortness of breath and weakness. She reports oral pain. She has had poor oral intake denies nausea at this time. She has not had fever. She does not wish for any IV fluids or further testing. She is hoping to stay here for end-of-life care. 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, liver and spine mets Benign paroxysmal positional vertigo of right ear (Acute) Blood in right ear canal (Acute) Hyperplastic colon polyp (Acute) Migraine headache (Chronic 12/25/11) Tobacco use disorder (Chronic 12/23/12) Tubular adenoma of colon (Chronic 04/03/16) Asymmetrical sensorineural hearing loss (Acute) Impairment of speech discrimination (Acute) Medical History 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 Repeat in 5 years. 02/[address] Chivo Nuñez 04/03/2016 tubular adenomas, Dr. Chivo Nuñez, repeat 5 yrs Trigger Finger release 09/2013 Family History Mother Personal history of malignant neoplasm BREAST Father Essential hypertension Personal history of malignant neoplasm LUNG/MELANOMA Heart disease Hyperlipidemia Sister No problems noted. Grandfather Personal history of malignant neoplasm STOMACH Grandfather Personal history of malignant neoplasm Grandmother No problems noted. Grandmother Personal history of malignant neoplasm Social History Smoking/Tobacco Use Status: Former Tobacco Use Smoking risk assessment performed?: Yes Alcohol Intake: never Drug use: Never Substance use type: does not use Current gender identity: female Do you feel safe at home: Yes Do you feel safe in your relationship?: Yes Additional Social history: has alzheimers Female Reproductive History Menstrual Menopause type: natural History History 2 Para 2 Hx # Term Pregnancies Multiple births Hx # Pregnancies Ectopic pregnancies AB induced Hx Number of Living Children AB spontaneous Meds Allergies and Home Medications Allergies Allergy/AdvReac Type Severity Reaction Status Date / Time isotretinoin [From Accutane] Allergy Intermediate Hives Verified 05/17/23 16:08 latex Allergy Intermediate Skin Rash Verified 05/17/23 16:08 Tetracyclines Allergy Intermediate Hives Verified 05/17/23 16:08 minocycline Allergy Verified 05/17/23 16:08 Home Medications Medication Instructions Recorded Confirmed Type cholecalciferol (vitamin D3) 25 2,000 units PO DAILY 03/12/14 05/17/23 History mcg (1,000 unit) tablet sertraline 50 mg tablet 50 mg PO DAILY 03/12/14 05/17/23 History sumatriptan succinate 100 mg 100 mg PO PRN PRN 03/12/14 05/17/23 History tablet (Imitrex) Proactive Cream 1 ea topical BID 07/03/17 05/17/23 History rosuvastatin 20 mg tablet 40 mg PO DAILY 01/25/19 05/17/23 History riboflavin (vitamin B2) 400 mg 400 mg PO DAILY 08/09/20 05/17/23 History tablet aspirin 81 mg tablet,delayed 81 mg PO DAILY 01/18/23 05/17/23 History release benzonatate 200 mg capsule 200 mg PO TID #30 caps 01/20/23 05/17/23 Rx guaifenesin 600 mg tablet, 600 mg PO BID #30 tabs 01/20/23 05/17/23 Rx extended release 12 hr (Mucus Relief ER) glycopyrrolate 9 mcg-formoterol 2 puff inhalation BID #10.7 grams 02/18/23 05/17/23 Rx 4.8 mcg HFA aerosol inhaler (Bevespi Aerosphere) Exam Const General: ill appearing acutely Nutritional Appearance: edematous Orientation: alert, awake and oriented x3 HENMT Head: normocephalic Mouth: moist mucous membranes abnormal (Extremely dry with exudate) Chest Chest: normal inspection of the chest Resp Effort & Inspection: normal respiratory effort Auscultation: diminished lung sounds Cardio Rate: regular rate Rhythm: regular rhythm GI Inspection: normal to inspection Neuro General: patient alert, patient awake and patient oriented x3 Results Labs 05/17/23 16:18 05/17/23 16:18 Labs: Laboratory Results - last 24 hr 05/17/23 05/17/23 16:18 16:18 WBC Cancelled RBC Cancelled Hgb Cancelled Hct Cancelled MCV Cancelled MCH Cancelled MCHC Cancelled RDW Cancelled Plt Count Cancelled MPV Cancelled Immature Gran % Cancelled Neutrophils % Cancelled Band Neutrophils % Cancelled Lymphocytes % Cancelled Atypical Lymphs % Cancelled Monocytes % Cancelled Eosinophils % Cancelled Basophils % Cancelled Metamyelocytes % Cancelled Myelocytes % Cancelled Promyelocytes % Cancelled Other Cells % Cancelled Nucleated RBC % Cancelled Absolute Neutrophils Cancelled Absolute Lymphocytes Cancelled Absolute Monocytes Cancelled Absolute Eosinophils Cancelled Absolute Basophils Cancelled RBC Morphology Cancelled Polychromasia Cancelled Hypochromasia Cancelled Poikilocytosis Cancelled Basophilic Stippling Cancelled Anisocytosis Cancelled Microcytosis Cancelled Macrocytosis Cancelled Spherocytes Cancelled Tear Drop Cells Cancelled Ovalocytes Cancelled Stomatocytes Cancelled Minor-[place] Bodies Cancelled [place] Cells/Echinocytes Cancelled Acanthocytes (Spur) Cancelled Schistocytes Cancelled Sodium Cancelled Potassium Cancelled Chloride Cancelled Carbon Dioxide Cancelled Anion Gap Cancelled BUN Cancelled Creatinine Cancelled Est GFR (CKD-EPI 2020) Cancelled Glucose Cancelled Calcium Cancelled Magnesium Cancelled Total Bilirubin Cancelled AST Cancelled ALT Cancelled Alkaline Phosphatase Cancelled Total Protein Cancelled Albumin Cancelled Last Vital Signs Temp 37.3 C 05/17/23 16:03 Resp 15 05/17/23 16:42 Time Spent Time spent with Patient: 40-54 minutes Time was spent: preparing to see the patient(eg.review tests), obtaining and/or reviewing separately otained hiistory, ordering medications,tests, procedures, counseling the patient and care coordination
--- NOTE | 2023-05-17 16:58 | ED.GENADUL_ITS ---
Discharge Plan Disposition Patient Disposition: Admit to [facility] Condition: Poor Discharge Details Clinical Impression: Small cell lung cancer Admit Date/Time: 05/17/23 16:44 Admit Provider: Akash Cuadra Attending Provider: Akash Cuadra Primary Care Provider: Addie Franks ED Provider: Tiffanie Feliciano Medical Decision Making Discussion with patient and son patient does not want any further treatment fluids or work-up. She is given Magic mouthwash for oral symptoms. She wishes to stay here for end-of-life care. CODE STATUS discussed patient wishes for DNR/DNI and comfort measures only. I will admit her under hospitalist services. Case is discussed with Dr. Cuadra HPI General Mode of arrival: ambulatory . Date/Time Provider Initiated Documentation: 05/17/23 16:02 . Information obtained by: patient and family . HPI Narrative: Patient presents for worsening weakness and shortness of breath. Currently on palliative chemo radiation was added. Poor p.o. intake Related Data Home Medications Medication Instructions Recorded Confirmed cholecalciferol (vitamin D3) 25 2,000 units PO DAILY 03/12/14 05/17/23 mcg (1,000 unit) tablet sertraline 50 mg tablet 50 mg PO DAILY 03/12/14 05/17/23 sumatriptan succinate 100 mg 100 mg PO PRN PRN 03/12/14 05/17/23 tablet (Imitrex) Proactive Cream 1 ea topical BID 07/03/17 05/17/23 rosuvastatin 20 mg tablet 40 mg PO DAILY 01/25/19 05/17/23 riboflavin (vitamin B2) 400 mg 400 mg PO DAILY 08/09/20 05/17/23 tablet aspirin 81 mg tablet,delayed 81 mg PO DAILY 01/18/23 05/17/23 release benzonatate 200 mg capsule 200 mg PO TID #30 caps 01/20/23 05/17/23 guaifenesin 600 mg tablet, 600 mg PO BID #30 tabs 01/20/23 05/17/23 extended release 12 hr (Mucus Relief ER) glycopyrrolate 9 mcg-formoterol 2 puff inhalation BID #10.7 grams 02/18/23 05/17/23 4.8 mcg HFA aerosol inhaler (Bevespi Aerosphere) Previous Rx's Medication Instructions Recorded benzonatate 200 mg capsule 200 mg PO TID #30 caps 01/20/23 guaifenesin 600 mg tablet, 600 mg PO BID #30 tabs 01/20/23 extended release 12 hr (Mucus Relief ER) glycopyrrolate 9 mcg-formoterol 2 puff inhalation BID #10.7 grams 02/18/23 4.8 mcg HFA aerosol inhaler (Bevespi Aerosphere) Allergies Allergy/AdvReac Type Severity Reaction Status Date / Time isotretinoin [From Accutane] Allergy Intermediate Hives Verified 05/17/23 16:08 latex Allergy Intermediate Skin Rash Verified 05/17/23 16:08 Tetracyclines Allergy Intermediate Hives Verified 05/17/23 16:08 minocycline Allergy Verified 05/17/23 16:08 General Stated Complaint: SOB SADA: 3 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, liver and spine mets Benign paroxysmal positional vertigo of right ear (Acute) Blood in right ear canal (Acute) Hyperplastic colon polyp (Acute) Migraine headache (Chronic 12/25/11) Tobacco use disorder (Chronic 12/23/12) Tubular adenoma of colon (Chronic 04/03/16) Asymmetrical sensorineural hearing loss (Acute) Impairment of speech discrimination (Acute) Medical History 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 Repeat in 5 years. 02/[address] Chivo Nuñez 04/03/2016 tubular adenomas, Dr. Chivo Nuñez, repeat 5 yrs Trigger Finger release 09/2013 Family History Mother Personal history of malignant neoplasm BREAST Father Essential hypertension Personal history of malignant neoplasm LUNG/MELANOMA Heart disease Hyperlipidemia Sister No problems noted. Grandfather Personal history of malignant neoplasm STOMACH Grandfather Personal history of malignant neoplasm Grandmother No problems noted. Grandmother Personal history of malignant neoplasm Social History Smoking/Tobacco Use Status: Former Tobacco Use Smoking risk assessment performed?: Yes Alcohol Intake: never Drug use: Never Substance use type: does not use Current gender identity: female Do you feel safe at home: Yes Do you feel safe in your relationship?: Yes Additional Social history: has alzheimers Female Reproductive History Menstrual Menopause type: natural History History 2 Para 2 Hx # Term Pregnancies Multiple births Hx # Pregnancies Ectopic pregnancies AB induced Hx Number of Living Children AB spontaneous Exam Const General: ill appearing acutely Nutritional Appearance: edematous Orientation: alert, awake and oriented x3 HENMT Head: normocephalic Mouth: moist mucous membranes abnormal (Extremely dry with exudate) Chest Chest: normal inspection of the chest Resp Effort & Inspection: normal respiratory effort Auscultation: diminished lung sounds Cardio Rate: regular rate Rhythm: regular rhythm GI Inspection: normal to inspection Neuro General: patient alert, patient awake and patient oriented x3 Course Vital Signs Vital signs: Vital Signs Temperature 37.3 C 05/17/23 16:03 Respiratory Rate 20 05/17/23 16:03 Temperature 37.3 C 05/17/23 16:03 Temperature Source Oral 05/17/23 16:03 Respiratory Rate 15 05/17/23 16:42 Respiratory Effort Normal 05/17/23 16:42 Respiratory Depth Normal 05/17/23 16:42 Respiratory Pattern Normal 05/17/23 16:42 Blood Pressure Position Supine 05/17/23 16:03 Oxygen Delivery Method Room Air 05/17/23 16:03 Oxygen Flow Rate 0 05/17/23 16:03 Lab/Test Results Lab/Test Results: Laboratory Tests Range/Units 05/17/23 05/17/23 16:18 16:18 WBC Cancelled RBC Cancelled Hgb Cancelled Hct Cancelled MCV Cancelled MCH Cancelled MCHC Cancelled RDW Cancelled Plt Count Cancelled MPV Cancelled Immature Gran % Cancelled Neutrophils % Cancelled Band Neutrophils % Cancelled Lymphocytes % Cancelled Atypical Lymphs % Cancelled Monocytes % Cancelled Eosinophils % Cancelled Basophils % Cancelled Metamyelocytes % Cancelled Myelocytes % Cancelled Promyelocytes % Cancelled Other Cells % Cancelled Nucleated RBC % Cancelled Absolute Neutrophils Cancelled Absolute Lymphocytes Cancelled Absolute Monocytes Cancelled Absolute Eosinophils Cancelled Absolute Basophils Cancelled RBC Morphology Cancelled Polychromasia Cancelled Hypochromasia Cancelled Poikilocytosis Cancelled Basophilic Stippling Cancelled Anisocytosis Cancelled Microcytosis Cancelled Macrocytosis Cancelled Spherocytes Cancelled Tear Drop Cells Cancelled Ovalocytes Cancelled Stomatocytes Cancelled Minor-[place] Bodies Cancelled [place] Cells/Echinocytes Cancelled Acanthocytes (Spur) Cancelled Schistocytes Cancelled Sodium Cancelled Potassium Cancelled Chloride Cancelled Carbon Dioxide Cancelled Anion Gap Cancelled BUN Cancelled Creatinine Cancelled Est GFR (CKD-EPI 2020) Cancelled Glucose Cancelled Calcium Cancelled Magnesium Cancelled Total Bilirubin Cancelled AST Cancelled ALT Cancelled Alkaline Phosphatase Cancelled Total Protein Cancelled Albumin Cancelled
[2023-05-17] MEDS: Ketorolac 15 MG/ML VIAL IVP (17:00)
[2023-05-17 17:17] VITALS: BP 109/61; PULSE 90; RESP 30; O2SAT 96
[2023-05-17] MEDS: MORPHine 4 MG/ML SYR (17:31)
[2023-05-17] MEDS: Scopolamine 1 MG/3 DAYS PATCH TD (17:43)
--- NOTE | 2023-05-18 08:33 | PDOC.CMIN ---
Date of service: 05/18/23 Time of Service: 08:33 Care Management Initial Assmt Initial Assessment REASON FOR HOSPITALIZATION:: Small cell lung cancer PREVIOUS FUNCTIONAL STATUS/SOCIAL/FAMILY SUPPORTS:: Celi lives in [facility], she is the primary caregiver for her Lance who has Alzheimer's. She was diagnosed with lung cancer this year and after a period of declining health she has decided to stop treatment and receive end of life care. Her Son Chivo is going to be looking after Lance after she passes, which family shares has been one of her biggest concerns since getting cancer. ADVANCE DIRECTIVES:: On file, primary [facility] is [facility].agent is son Chivo Has patient been provided with info about the portal/API?: Yes Did the patient sign up for the portal?: Yes (Prior to admission) CODE STATUS:: DNR/DNI INSURANCE COVERAGE / FINANCIAL ISSUES:: [facility] [employer] CURRENT HOME/COMMUNITY SERVICES/EQUIPMENT:: Patient of Palliative Care PRIMARY CARE PHYSICIAN:: Addie Franks POTENTIAL DISCHARGE NEEDS:: PATIENT/FAMILY EDUCATION NEEDS:: Review end of life planning, Discuss ask me three and available resources. TRANSPORTATION:: PLAN:: Celi is on palliative treatment for lung cancer and does not wish for any further care. Patient will remain at [facility] on comfort measures for end-of-life care. CM will continue to support patient and family during this difficult time. Pts Lance is in need of community support, CM placed a referral to [facility] at Chivo's request and with Lance's permission. 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, liver and spine mets Benign paroxysmal positional vertigo of right ear (Acute) Blood in right ear canal (Acute) Hyperplastic colon polyp (Acute) Migraine headache (Chronic 12/25/11) Tobacco use disorder (Chronic 12/23/12) Tubular adenoma of colon (Chronic 04/03/16) Asymmetrical sensorineural hearing loss (Acute) Impairment of speech discrimination (Acute) Medical History 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 Repeat in 5 years. 02/[address] Chivo Nuñez 04/03/2016 tubular adenomas, Dr. Chivo Nuñez, repeat 5 yrs Trigger Finger release 09/2013 Family History Mother Personal history of malignant neoplasm BREAST Father Essential hypertension Personal history of malignant neoplasm LUNG/MELANOMA Heart disease Hyperlipidemia Sister No problems noted. Grandfather Personal history of malignant neoplasm STOMACH Grandfather Personal history of malignant neoplasm Grandmother No problems noted. Grandmother Personal history of malignant neoplasm Social History Smoking/Tobacco Use Status: Former Tobacco Use Smoking risk assessment performed?: Yes Alcohol Intake: never Drug use: Never Substance use type: does not use Housing: house Current gender identity: female Do you feel safe at home: Yes Do you feel safe in your relationship?: Yes Additional Social history: has alzheimers Female Reproductive History Menstrual Menopause type: natural History History 2 Para 2 Hx # Term Pregnancies Multiple births Hx # Pregnancies Ectopic pregnancies AB induced Hx Number of Living Children AB spontaneous
[2023-05-18 10:49] VITALS: RESP 16
--- NOTE | 2023-05-18 13:14 | PGE_ITS ---
Date of Service Date of service: 05/18/23 Time of Service: 13:14 Assessment and Plan Assessment and plan (1) Small cell lung cancer: Status: Chronic Assessment and plan: Patient on palliative treatment at this point and does not wish for any further care. She will be admitted for comfort measures for end-of-life care. Comfort orders placed Discussed with Dr. Cuadra Subjective Subjective Patient reports: no new complaints and afebrile; denies shortness of breath Exam Const General: ill appearing acutely Nutritional Appearance: edematous Orientation: alert, awake and oriented x3 HENMT Head: normocephalic Mouth: moist mucous membranes abnormal (Extremely dry with exudate) Chest Chest: normal inspection of the chest Resp Effort & Inspection: normal respiratory effort Auscultation: diminished lung sounds Cardio Rate: regular rate Rhythm: regular rhythm GI Inspection: normal to inspection Neuro General: patient alert, patient awake and patient oriented x3 Objective Last Vital Signs Temp 37.3 C 05/17/23 16:03 Pulse 90 05/17/23 17:17 Resp 30 H 05/17/23 17:17 BP 109/61 05/17/23 17:17 Pulse Ox 96 05/17/23 17:17 Laboratory Results - last 24 hr 05/17/23 05/17/23 16:18 16:18 WBC Cancelled RBC Cancelled Hgb Cancelled Hct Cancelled MCV Cancelled MCH Cancelled MCHC Cancelled RDW Cancelled Plt Count Cancelled MPV Cancelled Immature Gran % Cancelled Neutrophils % Cancelled Band Neutrophils % Cancelled Lymphocytes % Cancelled Atypical Lymphs % Cancelled Monocytes % Cancelled Eosinophils % Cancelled Basophils % Cancelled Metamyelocytes % Cancelled Myelocytes % Cancelled Promyelocytes % Cancelled Other Cells % Cancelled Nucleated RBC % Cancelled Absolute Neutrophils Cancelled Absolute Lymphocytes Cancelled Absolute Monocytes Cancelled Absolute Eosinophils Cancelled Absolute Basophils Cancelled RBC Morphology Cancelled Polychromasia Cancelled Hypochromasia Cancelled Poikilocytosis Cancelled Basophilic Stippling Cancelled Anisocytosis Cancelled Microcytosis Cancelled Macrocytosis Cancelled Spherocytes Cancelled Tear Drop Cells Cancelled Ovalocytes Cancelled Stomatocytes Cancelled Minor-Humphreys Bodies Cancelled Sunset Cells/Echinocytes Cancelled Acanthocytes (Spur) Cancelled Schistocytes Cancelled Sodium Cancelled Potassium Cancelled Chloride Cancelled Carbon Dioxide Cancelled Anion Gap Cancelled BUN Cancelled Creatinine Cancelled Est GFR (CKD-EPI 2020) Cancelled Glucose Cancelled Calcium Cancelled Magnesium Cancelled Total Bilirubin Cancelled AST Cancelled ALT Cancelled Alkaline Phosphatase Cancelled Total Protein Cancelled Albumin Cancelled Time Spent with Patient Time Spent with Patient: 25-34 minutes Time was spent: preparing to see the patient(eg.review tests) and care coordination
--- NOTE | 2023-05-19 10:07 | PDOC.CMPRO ---
Date of service: 05/19/23 Time of Service: 10:07 Care Management Progress Note Progress Note Text Progress Note Text: S/O: Celi is lying in bed, appears to be comfortably sleeping. She is accompanied by her and sister. The plan is for Celi to remain at [facility] on comfort measures for end-of-life care. CM will continue to support patient and family during this difficult time. A: 73 year old female admitted to [facility] on 05/17/23 on comfort care/Small Cell Lung Cancer P: Celi is on palliative treatment for lung cancer and does not wish for any further care.? Patient will remain at [facility] on comfort measures for end-of-life care. Pts Lance is in need of community support, CM placed a referral to [facility] at [facility]'s request and with Lance's permission.
[2023-05-19] MEDS: MORPHine Oral Concentrate 20 MG/ML PO (14:34)
[2023-05-19] MEDS: Scopolamine 1 MG/3 DAYS PATCH TD (16:28)
--- NOTE | 2023-05-19 16:31 | PGE_ITS ---
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 Appears comfortable. Has required little pain medication to maintain an adequate comfort level. , sister and son all have been present today. Subjective Subjective Patient reports: afebrile; denies vomiting or shortness of breath Interval history since last seen: Pt remains somnolent with very short periods of arousal. Exam Narrative Exam Narrative: Gen: Lying supine. Appears comfortable. Resp: Nonlabored, mildly shallow breathing. No audible wheezing, rhonchi. Objective Last Vital Signs Temp 37.3 C 05/17/23 16:03 Pulse 90 05/17/23 17:17 Resp 16 05/18/23 10:49 BP 109/61 05/17/23 17:17 Pulse Ox 96 05/17/23 17:17 Time Spent with Patient Time Spent with Patient: 25-34 minutes Time was spent: preparing to see the patient(eg.review tests), obtaining and/or reviewing separately otained hiistory, referring, communicating with other health dog day care attendant and care coordination
[2023-05-20] MEDS: MORPHine Oral Concentrate 20 MG/ML PO (09:26)
--- NOTE | 2023-05-20 10:17 | CHAPLAIN ---
Celi was admitted three days ago, and is now on comfort measures. She has small cell lung cancer. Family members are with her, she remains sleeping comfortably and isn't talking with family. Her , who has dementia, is with her along with her sister, a former [employer] employee, and a brother in law and other family members. They all believe that Celi is comfortable. She was getting pain medication while I was there, in anticipation of getting washed up. Celi joined the [employer] when she got . Her sister doesn't think that Celi would want a visit from the [facility]. I invited the family members that were present to join me in a prayer as we stood around Celi's bed. According to Care Management notes, Celi's biggest worry has been who will care for her , and her son Chivo is going take on that responsibility. 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 Her two sons are both teachers. Chivo teaches at the [employer] and another son teaches in [place], [place].
--- NOTE | 2023-05-20 11:18 | W.PM.DDS ---
Date of service: 05/20/23 Time of Service: 11:19 Discharge Plan Disposition Condition: Poor Discharge Details Reason For Visit: Small Cell Lung Cancer Admit Date/Time: 05/17/23 16:44 Admit Provider: Akash Cuadra Attending Provider: Akash Cuadra Primary Care Provider: Addie Franks [facility] Course Hospital Course: This is a 73-year-old female patient with small cell lung cancer left history of tobacco use COPD who has been on outpatient checkpoint inhibitors following palliative chemotherapy recently started on radiation.? She presented to the ED for her third visit in 2 weeks for shortness of breath and weakness.? She also reported oral pain and had poor oral intake. After a short discussion about goals of care and work up she did not wish for any IV fluids or any further testing.? She was admitted here for end-of-life care. Today she passed at 1104, pronounced at 1106 by nursing staff. Routine post mortem care and body released to home. discussed with DR Cuadra. Home Meds and New Rx's Prescriptions: No Action rosuvastatin 20 mg tablet 40 mg PO DAILY riboflavin (vitamin B2) 400 mg tablet 400 mg PO DAILY Bevespi Aerosphere 9-4.8 mcg HFA aerosol inhaler 2 puff inhalation BID Qty: 10.7 8RF sumatriptan succinate [Imitrex] 100 MG tablet 100 mg PO PRN PRN sertraline 50 MG tablet 50 mg PO DAILY cholecalciferol (vitamin D3) 1,000 UNITS tablet 2,000 units PO DAILY Proactive Cream 1 ea Topical BID Patient Comments: hold aspirin 81 mg tablet,delayed release (DR/EC) 81 mg PO DAILY benzonatate 200 mg Capsule 200 mg PO TID Qty: 30 0RF guaifenesin [Mucus Relief ER] 600 mg Tablet Extended Release 12hr 600 mg PO BID Qty: 30 0RF Discharge Sum: Diag Contributing Factors (1) Small cell lung cancer:
--- NOTE | 2023-05-20 12:13 | CMPROGNOTE_ITS ---
Date of service: 05/20/23 Time of Service: 12:14 Care Management Progress Note Progress Note Text Progress Note Text: Celi today surrounded by her family. Per report, she appeared comfortable. Gabriela [employer], visited with the family prior to her passing, offering a prayer shawl. The family has chosen [facility] for final arrangements.
--- NOTE | 2023-05-20 15:18 | CHAPLAIN ---
Celi shortly after 11 a.m. today. Family members were with her and they called Celi's son, who had spent the night but left this morning when other family members arrived. Other families members, along with her son, were arriving after Celi . Celi's son spent some time alone with Celi after she while others waited in the family waiting room.
== END 2023-05-20 11:10 | disposition expired | DRG 180 ==
LOC: ER 17:23 → MS 17:36
PROVIDERS: Admitting Provider Family Medicine; Emergency Provider Nurse Practitioner Acute Care; PCP Family Medicine; Visit Provider Family Medicine
DX: J18.9 Pneumonia, unspecified organism; J96.01 Acute respiratory failure with hypoxia; E87.1 Hypo-osmolality and hyponatremia; C34.12 Malignant neoplasm of upper lobe, left bronchus or lung; J44.0 Chronic obstructive pulmonary disease with (acute) lower respiratory infection; C80.0 Disseminated malignant neoplasm, unspecified; C78.7 Secondary malignant neoplasm of liver and intrahepatic bile duct; C79.51 Secondary malignant neoplasm of bone; Z51.5 Encounter for palliative care; Z87.891 Personal history of nicotine dependence; Z86.010 Personal history of colon polyps; G43.909 Migraine, unspecified, not intractable, without status migrainosus; E83.42 Hypomagnesemia; R60.0 Localized edema; R80.9 Proteinuria, unspecified; H90.3 Sensorineural hearing loss, bilateral; Z79.899 Other long term (current) drug therapy; Z66 Do not resuscitate
CPT/HCPCS: 80053; 96374; 99285; 83735; 85025; 99222; 99231; 99232; 99238; J1885; J2270